=== PATIENT | female | born 1955 | race Caucasian/White ===

== ENCOUNTER 2021-10-09 11:51 | Emergency (ER) | payer MEDICARE, BC, SELFPAY ==
--- NOTE | 2021-10-09 12:15 | ED.GENADULT ---
HPI - General Adult General Time Seen by Provider: 12:15 Date Seen: 10/09/21 Chief complaint: Ear/Nose/Throat Problem Stated complaint: Nose bleed on blood thinners Time Seen by Provider: 10/09/21 12:06 Source: patient History of Present Illness HPI narrative: Love is a 66-year-old female past medical history includes dysthymic disorder, vitamin B12 deficiency, history of DVT, Heterozygous factor V Leiden mutation, GERD, hyperlipidemia irritable bowel syndrome who presents emergency department with a Ear/Nose/Throat problem. Patient states she has been having a head cold over the last 10 days, she has been blowing her nose a lot, denies any fevers, headache, nausea vomiting. Nosebleed started around 11:40 a.m. this morning she put the Afrin in the right naris and and put pressure, she came to the emergency department. Bleeding stopped when she was in the waiting room, this was around 1205 p.m.. She denies any lightheadedness, no dizziness, she has not had any shortness of breath or chest pain. She saw Dr. Usha Gonzalez ENT in the past, he did treat your around 7 years ago for recurrent nosebleeds. Patient has no other concerns at this time. Related Data Home Medications Medication Instructions Recorded Confirmed acetaminophen 500 mg tablet 1,000 mg PO Q6H PRN 10/04/21 10/05/21 apixaban 2.5 mg tablet 2.5 mg PO BID 10/04/21 10/05/21 atorvastatin 40 mg tablet 40 mg PO QDAY 10/04/21 10/05/21 bupropion HCl 100 mg tablet 300 mg PO .QD tab 10/04/21 10/05/21 cholecalciferol (vitamin D3) 50 50 mcg PO QDAY 10/04/21 10/05/21 mcg (2,000 unit) capsule cyanocobalamin (vitamin B-12) 500 500 mcg PO QDAY tab 10/04/21 10/05/21 mcg tablet fexofenadine 60 mg tablet 60 mg PO .HS tab 10/04/21 10/05/21 hydrocortisone 2.5 % topical cream 1 applic TOPICAL BID PRN 10/04/21 10/05/21 nystatin 100,000 unit/gram topical 1 applic TOPICAL QDAY 10/04/21 10/05/21 cream nystatin 100,000 unit/gram topical 1 applic TOPICAL TID 10/04/21 10/05/21 powder phentermine 3.75 mg-topiramate ER 1 cap PO Q24H 10/04/21 10/05/21 23 mg capsule,ext.release 24hr mphas (Qsymia) polyethylene glycol 3350 17 17 g PO ONCE g 10/04/21 10/05/21 gram/dose oral powder (Miralax) sennosides 8.6 mg tablet (senna) 8.6 mg PO QDAY 10/04/21 10/05/21 Previous Rx's Medication Instructions Recorded diazepam 5 mg tablet 2.5 - 5 mg PO DAILY PRN #30 tab 09/08/21 amoxicillin 500 mg-potassium 1 tab PO Q12H 7 Days #14 tab 10/09/21 clavulanate 125 mg tablet (Augmentin) Allergies Allergy/AdvReac Type Severity Reaction Status Date / Time ragweed pollen Allergy Intermediate Headache Verified 10/05/21 11:58 adhesive Allergy Mild Blistering Verified 10/05/21 11:58 adhesive tape Allergy Mild Verified 10/04/21 09:23 seasonal allergies to pollen Allergy Intermediate Uncoded 10/04/21 09:23 Tree Extract Allergy Intermediate Headache Uncoded 10/05/21 11:58 Review of Systems Status of ROS: Reports: 10 or more systems reviewed and unremarkable except as noted in History and below [facility] Medical History History of epistaxis History of hyperparathyroidism Surgical History Basal cell carcinoma of face History of cataract extraction (2016) History of cholecystectomy History of hysterectomy History of incisional hernia repair History of Am[place] fundoplication (2019) History of squamous cell carcinoma History of total hip replacement (2015) History of ventral hernia repair (2020) Status post trigger finger release (08/29/19) Family History Family/Other Colon cancer Exam Narrative: Exam Narrative: General: No obvious distress sitting comfortably HEENT: Tympanic membranes within normal limits bilateral oropharynx is clear and moist, Nose: Right nare, turbinates are noninflamed, small-vessel evident anterior septum no active bleeding, Left nare: Clear Lungs: Clear to auscultation bilaterally Heart: Normal sinus rhythm Neuro: Alert awake and oriented x3 Muscle skeletal: +5 strength upper lower extremities Const: Vital Signs, click to edit/add: Vital Signs - 24 hr 10/09/21 12:16 Temperature 98.3 F Pulse Rate [Pulse Oximeter] 86 Respiratory Rate 18 Blood Pressure [Le ft Upper Arm] 146/86 H Pulse Oximetry 98 Course Course Hospital Course: AIDET performed, was able to speak to ENT Dr. Gaming he recommended to pack with Merocel, cover with antibiotics Keflex and have her follow up at ENT clinic early next week. This discussed with patient she was in agreement. Reevaluation(s) Reevaluation #1: Merocel was placed with no difficulty, plan to discharge, prescription for Augmentin to be taken twice daily prophylaxis, patient did not want to be put on Keflex, she will call and make an appointment for at the [facility] [place] next week for packing removal, reasons return were given, all questions answered. Time: 13:34 Vital Signs Vital signs: Initial Vital Signs Temperature 98.3 F 10/09/21 12:16 Temperature Source Temporal Artery Scan 10/09/21 12:16 Pulse Rate 86 10/09/21 12:16 Respiratory Rate 18 10/09/21 12:16 Blood Pressure 146/86 H 10/09/21 12:16 Blood Pressure Mean 106 10/09/21 12:16 Blood Pressure Position Supine 10/09/21 12:16 Pulse Oximetry 98 10/09/21 12:16 Oxygen Delivery Method 10/09/21 12:16 Vital Signs Temperature 98.3 F 10/09/21 12:16 Pulse Rate 86 10/09/21 12:16 Respiratory Rate 18 10/09/21 12:16 Blood Pressure 146/86 H 10/09/21 12:16 Pulse Oximetry 98 10/09/21 12:16 Temperature 98.3 F 10/09/21 12:16 Pulse Rate 86 10/09/21 12:16 Respiratory Rate 18 10/09/21 12:16 Blood Pressure 146/86 H 10/09/21 12:16 Pulse Oximetry 98 10/09/21 12:16 Discharge Plan Discharge Clinical Impression: Epistaxis Patient Disposition: Home, Self-Care Condition: Improved Instructions: Nosebleed (ED) Additional Instructions: To follow-up with [place] next week for packing removal, do take Augmentin twice daily over the next 5 days, return if any worsening symptoms. Activity Level: No Restrictions Prescriptions: New amoxicillin-pot clavulanate [Augmentin] 500-125 mg tablet 1 tab PO Q12H 7 Days Qty: 14 0RF No Action atorvastatin 40 mg tablet 40 mg PO QDAY 0RF cholecalciferol (vitamin D3) 50 mcg (2,000 unit) capsule 50 mcg PO QDAY 0RF hydrocortisone 2.5 % cream 1 applic topical BID PRN0RF nystatin 100,000 unit/gram powder 1 applic topical TID 0RF nystatin 100,000 unit/gram cream 1 applic topical QDAY 0RF bupropion HCl 100 mg tablet 300 mg PO .QD 0RF apixaban 2.5 mg tablet 2.5 mg PO BID 0RF acetaminophen 500 mg tablet 1,000 mg PO Q6H PRN0RF fexofenadine 60 mg tablet 60 mg PO .HS 0RF cyanocobalamin (vitamin B-12) 500 mcg tablet 500 mcg PO QDAY 0RF polyethylene glycol 3350 [Miralax] 17 gram/dose powder 17 g PO ONCE 0RF Qsymia 3.75-23 mg capsule, ER multiphase 24 hr 1 cap PO Q24H 0RF Label Comments: Unknown dose sennosides [senna] 8.6 mg tablet 8.6 mg PO QDAY 0RF diazepam 5 mg tablet 2.5 - 5 mg PO DAILY PRN (Reason: anxiety) Qty: 30 1RF Follow Up/Referrals: Ligia Cash MD [Primary Care Provider] - Stand Alone Forms: [facility] Info Instructions
[2021-10-09 12:16] VITALS: BP 146/86; PULSE 86; RESP 18; TEMP 36.8; O2SAT 98; BMI 30.4
== END 2021-10-09 14:01 | disposition home or self-care (01) ==
LOC: ED 13:28
PROVIDERS: Emergency Provider Student in an Organized Health Care Education/Training Program; PCP Internal Medicine
DX: R04.0 Epistaxis (principal)
CPT/HCPCS: 99282; 99284

== ENCOUNTER 2022-01-15 14:51 | Outpatient (CLI) | payer MEDICARE, BC, SELFPAY ==
--- NOTE | 2022-01-15 15:00 | CRLHL7_ITS ---
For Patients: As a result of the Cures Act, medical imaging exams and procedure reports are released immediately into your electronic medical record. You may view this report before your referring provider. If you have questions, please contact your health care provider. BILATERAL DIGITAL SCREENING MAMMOGRAPHY WITH COMPUTER-AIDED DETECTION AND TOMOSYNTHESIS 01/15/2022 CLINICAL HISTORY: Screening. COMPARISON: 11/20/2020. TECHNIQUE: Mammography was performed using digital technique and interpreted with computer-aided detection. BREAST DENSITY: Scattered fibroglandular FINDINGS: 1 cm asymmetry LEFT breast, 2 o???clock position, 6 cm from the nipple. Negative findings RIGHT breast. IMPRESSION: Possible LEFT breast asymmetry. RECOMMENDATION: Recommend MLO and CC spot compression views and 90-degree lateral view. Additionally, ultrasound may be needed during the diagnostic evaluation. [facility] will contact the patient. BI-RADS Category 0: Incomplete - Need Additional Imaging evaluation and/or Prior Mammograms for Comparison Nicole Myers M.D. Diagnostic/Breast Radiologist [email or web address] Transcribed: 8:43 a.m. DW/Dictated by: Nicole Myers MD @ 01/18/2022 8:39:00 AM (Electronically Signed)
== END 2022-01-15 14:52 | disposition home or self-care (01) ==
LOC: MAMMO 14:55
PROVIDERS: PCP Internal Medicine; Visit Provider Internal Medicine
DX: Z12.31 Encounter for screening mammogram for malignant neoplasm of breast (principal); N63.20 Unspecified lump in the left breast, unspecified quadrant
CPT/HCPCS: 77063; 77067

== ENCOUNTER 2022-01-21 10:27 | Outpatient (CLI) | payer MEDICARE, BC, SELFPAY ==
--- NOTE | 2022-01-21 10:45 | CRLHL7_ITS ---
For Patients: As a result of the Cures Act, medical imaging exams and procedure reports are released immediately into your electronic medical record. You may view this report before your referring provider. If you have questions, please contact your health care provider. LEFT DIAGNOSTIC DIGITAL MAMMOGRAM WITH COMPUTER-AIDED DETECTION AND TOMOSYNTHESIS, 01/21/2022 INDICATION: Follow-up of a LEFT breast asymmetry described on a recent mammogram of 01/15/2022. TECHNIQUE: Views of the LEFT breast in the CC and MLO projections. Digital breast tomosynthesis utilized. Computer-aided detection utilized. COMPARISON FILM: January 15, 2022. BREAST COMPOSITION: There are scattered areas of fibroglandular density. FINDINGS: The previously suggested asymmetry in the upper outer LEFT breast is no longer evident and may have reflected superimposed breast tissue. These findings were discussed with the patient. Ultrasound is not recommended at this time. IMPRESSION: Negative LEFT breast diagnostic mammogram. RECOMMENDATION: Annual mammography is recommended. BI-RADS Category 1: Negative A lay language report of this examination will be provided to the patient. Dictated by: Catrachito Pickens MD @01/21/2022 11:25:40 AM [email or web address] RD/Dictated by: Catrachito Pickens MD @ 01/21/2022 11:25:00 AM (Electronically Signed)
== END 2022-01-21 10:28 | disposition home or self-care (01) ==
LOC: MAMMO 10:28
PROVIDERS: PCP Internal Medicine; Visit Provider Obstetrics & Gynecology
DX: N63.20 Unspecified lump in the left breast, unspecified quadrant (principal); R92.8 Other abnormal and inconclusive findings on diagnostic imaging of breast
CPT/HCPCS: 77065; G0279

== ENCOUNTER 2022-05-03 10:18 | Outpatient (CLI) | payer MEDICARE, BC, SELFPAY ==
[2022-05-03 13:59] LABS: Albumin* 4.2 g/dL (3.3-5.0); Chloride* 111 mmol/L (96-114)
[2022-05-03 14:00] LABS: Sodium* 140 mmol/L (135-149)
[2022-05-03 14:01] LABS: Potassium* 4.5 mmol/L (3.6-5.1)
[2022-05-03 14:02] LABS: Cholesterol* 150 mg/dL (90-199)
[2022-05-03 14:03] LABS: Alanine Aminotransferase* 39 U/L (4-35); Alkaline Phosphatase* 90 U/L (40-150); Aspartate Amino Transferase* 31 U/L (12-35); Bilirubin Direct* 0.3 mg/dL (0.0-0.5); Bilirubin Total* 0.6 mg/dL (0.1-1.5); Blood Urea Nitrogen* 16 mg/dL (7-30); Calcium* 9.2 mg/dL (8.4-10.6); Carbon Dioxide* 25 mmol/L (20-32); Estimated Glomerular Filt Rate 61 ml/min; Glucose* 90 mg/dL (60-115); Total Protein* 6.7 g/dL (6.0-8.3); Triglycerides* 104 mg/dL (40-149)
[2022-05-03 14:04] LABS: HDL Cholesterol* 59 mg/dL (>=50); LDL Cholesterol Calculated 70 mg/dL (<100); Vitamin D 25 Hydroxy* 48 ng/mL (30-80)
[2022-05-10 14:38] LABS: Vitamin B12* 920 pg/mL (243-894)
== END 2022-05-03 10:19 | disposition home or self-care (01) ==
LOC: LKVREF 10:18
PROVIDERS: PCP Internal Medicine; Visit Provider Internal Medicine
DX: R79.89 Other specified abnormal findings of blood chemistry (principal); M85.80 Other specified disorders of bone density and structure, unspecified site; E78.5 Hyperlipidemia, unspecified
CPT/HCPCS: 80048; 80061; 80076; 82306; 82607

== ENCOUNTER 2022-10-09 11:37 | Outpatient (CLI) | payer MEDICARE, BC, SELFPAY | END 2022-10-09 11:38 | disposition home or self-care (01) | LOC: LKVREF 11:38 | PROVIDERS: PCP Internal Medicine; Visit Provider Nurse Practitioner Family | DX: L03.90 Cellulitis, unspecified (principal) | CPT/HCPCS: 87070 ==

== ENCOUNTER 2022-12-20 06:24 | Outpatient (CLI) | payer MEDICARE, BC, SELFPAY ==
--- NOTE | 2022-12-20 08:45 | W.ANESCHARGE ---
Anesthesia Charges Start Date/Time Anesthesia Start Date: 12/20/22 Anesthesia Start Time: 07:30 Stop Date/Time Anesthesia Stop Date: 12/20/22 Anesthesia Stop Time: 08:04
--- NOTE | 2022-12-20 10:38 | W.ANESCHARGE ---
Anesthesia Charges Start Date/Time Anesthesia Start Date: 12/20/22 Anesthesia Start Time: 07:30 Stop Date/Time Anesthesia Stop Date: 12/20/22 Anesthesia Stop Time: 08:04
== END 2022-12-20 06:25 | disposition home or self-care (01) ==
LOC: OP CLINIC 06:24
PROVIDERS: PCP Internal Medicine; Visit Provider Surgery
DX: Z12.11 Encounter for screening for malignant neoplasm of colon (principal); K57.30 Diverticulosis of large intestine without perforation or abscess without bleeding; Z86.010 Personal history of colon polyps
CPT/HCPCS: 45378; 811; 812; J2704

== ENCOUNTER 2023-02-16 09:55 | Outpatient (CLI) | payer MEDICARE, BC, SELFPAY ==
--- NOTE | 2023-02-16 10:15 | CRLHL7_ITS ---
For Patients: As a result of the Cures Act, medical imaging exams and procedure reports are released immediately into your electronic medical record. You may view this report before your referring provider. If you have questions, please contact your health care provider. BILATERAL SCREENING MAMMOGRAM WITH COMPUTER-AIDED DETECTION AND TOMOSYNTHESIS TECHNIQUE: CC and MLO views were obtained. These mammographic images have been obtained using full-field digital technique. These mammographic images were interpreted with the benefit of computer-aided detection. Breast Tomosynthesis was used in this interpretation. COMPARISON FILM: 01/21/22, 01/15/22, 11/20/20. FINDINGS: There are scattered areas of fibroglandular density IMPRESSION: There is no radiographic evidence for malignancy. ASSESSMENT: BI-RADS Category 2: Benign RECOMMENDATION: Routine screening mammogram in 1 year. A lay language report of this examination will be provided to the patient. Tavon Coats M.D. Diagnostic Radiologist [email or web address] Transcribed: 6:48 p.mJosé Antonio gutierrez/Dictated by: Tavon Coats MD @ 02/16/2023 11:16:00 AM (Electronically Signed)
== END 2023-02-16 09:56 | disposition home or self-care (01) ==
PROVIDERS: PCP Internal Medicine; Visit Provider Internal Medicine
DX: Z12.31 Encounter for screening mammogram for malignant neoplasm of breast (principal)
CPT/HCPCS: 77063; 77067

== ENCOUNTER 2023-06-06 09:05 | Outpatient (CLI) | payer MEDICARE, BC, SELFPAY ==
--- OUTSIDE RECORDS SUMMARY | 2023-06-17 12:07 | XMS_ITS | Clinical Summary ---
Author Name Unknown Organization [facility] Address [address] [place] [address] Care Team Providers Care Indirect Sales Representative Name Role Phone Elsewhere, Pcp Primary Care Provider Unavailabl e Source Comments Patient records contain information from all sites at [facility]. For routine questions regarding patient records, call [phone] during business hours, M-F 8:00 AM - 5:00 PM Central Time. Record requests for emergency care only can be directed to [phone] at any time.[facility] Allergies Active Allergy Reactions Criticality Noted Date Comments Adhesive Itching,Rash Low 02/18/2016 Pollen Extracts Headache Medium 11/30/2018 Sneezing Ragweed Pollen Headache High 10/04/2022 Medications Medication Sig Dispensed Refills Start Date End Date Status atorvastatin (LIPITOR) 40 mg tablet Take 40 mg by mouth at bedtime. 3 10/03/2017 Active buPROPion XL (WELLBUTRIN XL) 300 mg 24 hr tablet Take 300 mg by mouth daily. 3 10/30/2018 Active YUVAFEM 10 mcg vaginal tablet Insert 10 mcg into the vagina 2 (two) times a week. 3 10/23/2018 Active chlorpheniramine/ dextromethorp (CORICIDIN HBP COUGH AND COLD ORAL) Take 1 tablet by mouth daily as needed (allergies). If fexofenadine does not relieve allergy symptoms. 0 Active cyanocobalamin, vitamin B-12, 1,500 mcg tablet,disintegra ting Dissolve 1,500 mcg in the mouth daily. 0 Active polyethylene glycol (MIRALAX) 17 gram powder packet Take 1 packet (17 g total) by mouth daily. Dissolve each 17 g dose in 240 mLs (8 ounces) of beverage.; Take while using pain medications and until noted with return of normal bowel function; hold for loose stools/diarrhea 0 07/08/2020 Active Additional Information Patient taking differently:17 g oral Daily,Dissolve each 17 g dose in 240 mLs (8 ounces) of beverage.; Take while using pain medications and until noted with return of normal bowel function; hold for loose stools/diarrheaUsing Senna at night, Miralax in morning if needed. 10/02/2021, Informant: Self, Reported on 10/02/2021 sennosides-docusa te sodium (Senna-S) 8.6-50 mg per tablet Take 2 tablets by mouth 2 (two) times a day. ; take while using pain medications and until noted with return of normal bowel function; hold for loose stools/diarrhea 0 07/08/2020 Active Additional Information Patient taking differently: 1 tabletoralDaily, 1 tablet at night, miralax in morning if needed., Reported on 10/02/2021 acetaminophen (TYLENOL) 500 mg capsule Take 2 capsules (1,000 mg total) by mouth every 6 (six) hours as needed for pain. 0 12/11/2020 Active Eliquis 2.5 mg tablet Take 2.5 mg by mouth 2 (two) times a day. 0 03/17/2021 Active cholecalciferol (VITAMIN D3) 50 mcg (2,000 Unit) capsule Take 50 mcg by mouth daily. 0 04/07/2021 Active loratadine (CLARITIN) 10 mg tablet Take 10 mg by mouth daily. 0 Active FLUoxetine (PROzac) 20 mg capsule Take 20 mg by mouth daily. 0 10/12/2022 Active hydrocortisone (HYTONE) 2.5 % cream Apply 1 Application topically as needed for irritation. 0 10/09/2022 Active multivit with calcium,iron,min (MULTIPLE VITAMIN, WOMENS ORAL) 0 Active halobetasol (ULTRAVATE) 0.05 % ointment Apply topically 2 (two) times a day. Apply to foot under a white cotton sock 30 g 1 01/25/2023 Active phentermine-topir amate (QSYMIA) 15-92 mg capsule, ER multiphase 24 hr ext release capsule Take 1 capsule by mouth every morning before breakfast. 90 capsule 1 03/03/2023 08/30/2023 Active metFORMIN XR (GLUCOPHAGE-XR) 500 mg 24 hr tabletIndications :PreDiabetes Take 2 tablets (1,000 mg total) by mouth 2 (two) times a day with meals. 360 tablet 3 03/24/2023 03/23/2024 Active amitriptyline 2%,ketamine 0.5% - vanicream Apply topically 3 (three) times a day as needed (itching). Apply to affected areas of the toes. 30 g 1 04/14/2023 Active amitriptyline 2%,ketamine 0.5% - vanicream Apply topically 3 (three) times a day as needed for itching. Apply to affected areas of the toes. 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 Seroma Subsequent 07/15/2020 Anticoagulant Therapy 11/28/2019 Gastroesophageal Reflux Disease 10/22/2019 Obesity Body Mass Index 30-39.9 Adult 10/22/2019 Hernia Hiatal 10/12/2019 Overview: Added automatically from request for surgery [id number] Mutation Factor V Leiden Heterozygous 09/18/2013 Solitary Kidney Congenital 09/18/2013 Anxiety Generalized Disorder 03/14/2011 Irritable Bowel Syndrome Without Diarrhea 1994 Insulin Resistance, Unspecified 03/14/1994 Hyperlipidemia 03/14/1994 Thrombosis Deep Vein Personal History 03/14/1994 Factor V Leiden Family History 03/14/1994 Thrombosis Deep Vein Family History 03/14/1994 Resolved Problems Problem Noted Date Diagnosed Date Resolved Date Seroma Infected Postoperative Initial 07/27/2020 11/05/2020 Hernia Ventral 06/02/2020 11/05/2020 Overview: Added automatically from request for surgery [id number] Herniorrhaphy Ventral Status Post 03/14/1994 11/05/2020 Encounters Date Type Department Care Team Description 06/09/2023 Clinical Communication Department of Dermatology in [address] [phone] Elsewhere, Pcp 05/25/2023 10:20 AM CDT Office Visit Department of Dermatology in [place], [place] [address] [place] [address] Abimbola Bowles M.D. Pruritus (Primary Dx); Dermatitis 05/25/2023 Ancillary Procedure Department of Dermatology 04/28/2023 Clinical Communication Division of Thoracic Surgery in [place], [place] [address] [place] [address] Rossana Ross M.D. 04/14/2023 12:10 PM [facility] Ancillary Procedure Department of Dermatology 04/14/2023 11:20 AM [facility] Office Visit Department of Dermatology in [place], [place] [address] [place] [address] Abimbola Bowles M.D. Acrocyanosis (HCC) (Primary Dx); Pruritus; Mutation Factor V Leiden Heterozygous (HCC) Discharge Disposition: Home or Self Care 04/06/2023 Clinical Communication Department of Dermatology in [place], [place] [address] [place] [address] Regina Amaya, RChelsie 03/24/2023 Refill Division of Endocrinology in [place], [place] [address] [place] [address] Tana Vazquez M.D. Med Refill from Last 3 Months Immunizations Name Administration Dates Next Due HZV (ZOSTAVAX) 01/11/2014 Influenza TIV (IM) 12/12/2014 Tdap 01/11/2014 influenza vaccine quad (FLUZ ONE/FLUARIX) (6 months and older)(PF) 01/01/2016,12/12/2014 Family History Medical History Relation Name Comments Basal cell carcinoma Brother 1 Zac Colon polyps Brother 1 Zac Hypertension Brother 1 Zac Obesity Brother 1 Zac Skin cancer Brother 1 Zac Clotting disorder Father Reji Dementia Father Reji Hypertension Father Reji Kidney disease Father Reji Stroke Father Reji Transient ischemic attack Father Reji Tuberculosis Father Reji Clotting disorder Mother Sheeba Melanoma Paternal Grandfather Grandpa Reji Cause of in mid 80? s Colon cancer Paternal Grandmother Paternal grandmother Surgery in mid 50? s. Lived a long time after Dementia Paternal Grandmother Paternal grandmother Stroke Paternal Grandmother Paternal grandmother Basal cell carcinoma Sister 1 Rachele Clotting disorder Sister 1 Rachele Colon polyps Sister 1 Rachele Ovarian cancer Sister 1 Rachele Psoriasis Sister 1 Rachele Skin cancer Sister 1 Rachele Arthritis Sister 2 Christy Clotting disorder Sister 2 Christy Colon polyps Sister 2 Christy Hyperlipidemia Sister 2 Christy Kidney disease Sister 2 Christy Obesity Sister 2 Christy Osteoporosis Sister 2 Christy Relation Name Status Comments Brother 1 Zac Brother 2 Wade Father Reji Mother Sheeba Paternal Grandfather Grandpa Reji Paternal Grandmother Paternal grandmother Sister 1 Rachele Sister 2 Christy Social History Tobacco Use Types Packs/Day Years Used Date Smoking Tobacco: Never Smokeless Tobacco: Never Tobacco Cessation:Counseling Given: Not Answered Alcohol Use Standard Drinks/Week Comments Yes 7 (1 standard drink = 0.6 oz pur e alcohol) Humiliation, Afraid, Rape, and Kick questionnair e Answer Date Recorded Within the last year, have y ou been afraid of your partner or ex-partner? No 12/24/2021 Within the last year, have y ou been humiliated or emotionally abused in other ways by your partner or ex-partner? No Within the last year, have y ou been kicked, hit, slapped, or otherwise physically hurt by your partner or ex-partner? No 12/24/2021 Within the last year, have y ou been raped or forced to have any kind of sexual activity by your partner or ex-partner? No 12/24/2021 Social Connection and Isolat ion Panel [NHANES] Answer Date Recorded In a typical week, how many times do you talk on the phone with family, friends, or neighbors? More than three times a week 12/24/2021 How often do you get togethe r with friends or relatives? More than three times a week 12/24/2021 How often do you attend [facility] or sikhism services? 1 to 4 times per year 12/24/2021 Do you belong to any clubs o r organizations such as restorationism groups, unions, fraternal or athletic groups, or school groups? Yes 12/24/2021 How often do you attend meet ings of the clubs or organizations you belong to? More than 4 times per year 12/24/2021 Are you , , di vorced, , never , or living with a partner? 12/24/2021 AUDIT-C Answer Date Recorded Q1: How often do you have a drink containing alcohol? 4 or more times a week 12/24/2021 Q2: How many drinks containi ng alcohol do you have on a typical day when you are drinking? 1 or 2 Q3: How often do you have si x or more drinks on one occasion? Never 12/24/2021 Overall Financial Resource Strain (CARDIA) Answe r Date Recorded How hard is it for you to pa y for the very basics like food, housing, medical care, and heating? Not hard at all 01/10/2023 [facility]at ional [facility] - Occupational Stress Questionnaire Answer Date Recorded Do you feel stress - tense, restless, nervous, or anxious, or unable to sleep at night because your mind is troubled all the time - these days? To some extent 12/24/2021 Exercise Vital Sign Answer Date Recorde d On average, how many days pe r week do you engage in moderate to strenuous exercise (like a brisk walk)? 4 days 01/10/2023 On average, how many minutes do you engage in exercise at this level? 120 min 01/10/2023 Hunger Vital Sign Answer Date Recorded Within the past 12 months, y ou worried that your food would run out before you got the money to buy more. Never true 01/11/20 23 Within the past 12 months, t he food you bought just didn't last and you didn't have money to get more. Never true 01/10/2023 PRAPARE - Transportation Answer Date Re corded In the past 12 months, has l ack of transportation kept you from medical appointments or from getting medications? No 12/14 In the past 12 months, has l ack of transportation kept you from meetings, work, or from getting things needed for daily living? No 01/10/2023 Nutrition Answer Date Recorded Nutrition: EVOO Fat Source Yes 01/10 On average, how many serving s of fruits and vegetables do you eat per day (serving size is equal to 1 cup or approximately the size of a tennis ball)? 3-5 01/10/2023 Dental Answer Date Recorded Dental: Regular Dentist Yes 05/01/19 Employment Answer Date Recorded Employment status Retired 01/10/2023 Housing Stability Answer Date Recorded What is your living situation today? [facility] 01/10/2023 Education Answer Date Recorded What is the highest level of school you have completed or the highest degree you have received? Professional school degree (e.g., MD, DDS, DVM, RUFINO) 11/21/2018 Sex and Gender Information Value Date Recorded Sex Assigned at Female 11/21/2018 6:51 PM CDT Gender Identity Female 11/21/2018 6:51 PM CDT Sexual Orientation Straight 08/13/2019 1: 22 PM CDT Last Filed Vital Signs Vital Sign Reading Time Taken Comments Blood Pressure 122/79 01/10/2023 2:19 PM CDT Pulse 88 01/10/2023 2:19 PM CDT Temperature 36.6 ??C (97.9 ??F) 12/11/2020 1:05 PM CD T Respiratory Rate 16 12/11/2020 1:05 PM CDT Oxygen Saturation 95% 12/11/2020 1:05 PM CDT Inhaled Oxygen Concentration - - Weight 79.3 kg (174 lb 13.2 oz) 01/10/2023 2:13 PM CDT Height 159 cm (5' 2.6) 01/10/2023 2:13 PM CDT Body Mass Index 31.37 01/10/2023 2:13 PM CDT Plan of Treatment Upcoming Encounters Date Type Department Care Team (Late st Contact Info) Description 10/25/2023 2:00 PM CDT Office Visit Department of Dermatology in [address] [address] Daryl Dorsey M.D. [address] [place] [address] Discharge Disposition: Home or Self Care Health Maintenance Due Date Last Done Comments CT Colonography 1955 Cologuard 1955 Hepatitis C Screening 1955 Lipid (Cholesterol) Screening 1955 Mammogram 1955 Colonoscopy 02/17/2021 02/18/2016 Colorectal Cancer Surveillance 02/17/2021 Fasting Glucose for Diabetes Screening 09/17/2021 09/17/2020, 08/09/2020, 08/09/2020, Additional history exists COVID-19 Vaccine (2022-2 4 season) 2023 11/30/2022, 11/27/2021, 11/27/2021, Additional history exists Depression Screening (Annual PHQ-2) 03/14/2023 Fall Risk Screen (Annual) 03/14/2023 DTaP,Tdap,and Td Vaccines (2 - Td or Tdap) 01/12/2024 01/11/2014 Zoster Vaccines Completed 05/18/2018, 10/14, 01/11/2014 Pneumococcal vaccine (65+ years) Completed 07/19/19, 08/29/2018 Bone Density Scan (Osteoporo sis Screen) Discontinued 09/17/2020 Influenza Vaccine Completed 01/06/2023, , 12/26/2021, Additional history exists Medical Devices Implanted Type Area Bench Worker Apprentice Device Identifier Shelf Expiration Date Model / Serial / Lot Clp Hrzn Ti 6 Clp Md Bello - [id number] Implanted:Qt y: 1 on 08/08/2020 by Blaire Marin M.D. at [facility] Hardware e.g. pins/screws /rods Abdomen Teleflex [employer] [id number] 10/07/2024 [id number] / / [id number] Clp Hrzn Ti 6 Clp Md Bello - [id number] Implanted:Qt y: 1 on 08/08/2020 by Blaire Marin M.D. at [facility] Hardware e.g. pins/screws /rods Abdomen Clinical Inkflex [employer] [id number] 10/07/2024 [id number] / / [id number] Clp Hrzn Ti 6 Clp Md Bello - [id number] Implanted:Qt y: 1 on 08/08/2020 by Blaire Marin M.D. at [facility] Hardware e.g. pins/screws /rods Abdomen [employer] [id number] 10/07/2024 / [id number] 2 Clp Hrzn Ti 6 Clp Sm Red - [id number] Implanted:Qt y: 1 on 08/08/2020 by Blaire Marin M.D. at [facility] Hardware e.g. pins/screws /rods Abdomen [employer] [id number] 11/11/2024 / [id number] Clp Hrzn Ti 6 Clp Sm Red - [id number] Implanted:Qt y: 1 on 08/08/2020 by Blaire Marin M.D. at [facility] Hardware e.g. pins/screws /rods Abdomen [employer] [id number] 11/11/2024 / [id number] 4 Clp Hrzn Ti 6 Clp Sm Red - [id number] Implanted:Qt y: 1 on 08/08/2020 by Blaire Marin M.D. at [facility] Hardware e.g. pins/screws /rods Abdomen [employer] [id number] 11/11/2024 / [id number] Clp Hrzn Ti 6 Clp Sm Red - [id number] Implanted:Qt y: 1 on 08/08/2020 by Blaire Marin M.D. at [facility] Hardware e.g. pins/screws /rods Abdomen [employer] [id number] 11/11/2024 / [id number] Clp Hrzn Ti 6 Clp Md Bello - [id number] Implanted:Qt y: 1 on 08/08/2020 by Blaire Marin M.D. at [facility] Hardware e.g. pins/screws /rods Abdomen [employer] [id number] 10/07/2024 / [id number] Hip Implant Hip Implant Left: Hip Mesh Or Patch Mesh or Patch Abdomen Hernandez [employer]hn Sep[employer] 5x6 - [id number] Implanted:Qt y: 1 on 07/07/2020 by Blaire Marin M.D. at [facility] Mesh or Patch N/A: Abdomen Olivarez 09/29/2022 [id number] / / [id number] [facility] Santosh Polyprp 6x6 - [id number] Implanted:Qt y: 1 on 07/07/2020 by Blaire Marin M.D. at [facility] Mesh or Patch N/A: Abdomen C.R.Bard 09/08/2024 [id number] / / [id number] Procedures Procedure Name Priority Date/Time Associated Diagnosis Comments DERMATOPATHOLOGY Routine 05/25/2023 10:5 2 AM CDT DERMATOLOGY IMAGE EXAM Routine 4 12:00 AM CDT DERMATOLOGY IMAGE EXAM Routine 4 12:10 PM [facility] from Last 3 Months Results * Dermatopathology (05/25/2023 10:52 AM CDT) 05/31/2023 10:41 AM CDT PDRM Report electronically signed by Cyndy Davies M.D. 05/31/2023 10:41 AM CDT PDRM Gross Description Received in formalin labeled with the patient's name, medical record number, and right dorsum of foot is a 0.4 cm in diameter pale-nunez,previously inked blue skin punch biopsy excised to a depth of 0.2 cm. No discrete lesion is grossly identified on the skin surface.Specimen is bisected and submitted entirely in cassette A1. ??Grossed by JTW. 05/31/2023 10:41 AM CDT PDRM Interpretation FINAL DIAGNOSIS A. ??Right Dorsum of Foot, Skin punch biopsy: ??Chronic dermatitis with perivascular mixed lymphohistiocytic inflammation including eosinophils COMMENT Clinical note and photos were reviewed. PAS-D stain is negative for fungal microorganisms. The histologic findings are consisted with dermatitis.Clinical correlation is recommended. Digital imaging was used in the diagnostic assessment of this case. 05/31/2023 10:41 AM CDT PDRM Skin (Right Dorsum of Foot) 05/25/2023 10:50 AM CDT Abimbola Bowles M.D. LAB PATH DERM [facility] [address] [place] [address], [facility] PDRM [address] [place] [address] * Feet 529 Biopsy-Dermatology Image Exam (05/25/2023 12:00 AM CDT) Only the most recent of2 resultswithin the time period is included. Narrative [facility]IMS - 05/25/2023 4:25 PM CDT This order has been created and auto-finalized to support the import of images acquired without order. The clinical documentation to support these images can be found on the encounter that produced images. Provider Not In System IMG NON RAD IMAGI NG PROCEDURES Performing Organization Address City/[facility]/ZIP Co de Phone Number [facility]S NA from Last 3 Months Advance Directives For more information, please contact: [phone] Documents on File Type Date Recorded Patient Billing Department Supervisor Expl anation Advance Directives 11/28/2019 5:54 AM [facility] Directive * Full Code (Latest Code Status on File) Date Activated Date Inactivated Comments 12/11/2020 8:05 AM 12/11/2020 4:45 PM Question Answer Comments Full Code: Not Discussed Due to: Patient not available * Full Code Date Activated Date Inactivated Comments 07/27/2020 11:16 AM 08/02/2020 2:15 PM Question Answer Comments Full Code: Discussed * Full Code Date Activated Date Inactivated Comments 11/28/2019 2:59 PM 11/30/2019 4:16 PM Question Answer Comments Full Code: Not Discussed Due to: Patient not available Healthcare Agents on File Name Relationship Healthcare Agent Relationship Communication Travis Mendoza Spouse Health Care Agent Rachele Iglesias Sister First Alternate Health Care Agent Care Teams Indirect Sales Representative Relationship Specialty Start Date End Date Elsewhere, Pcp PCP - General Family Medicine 10/10/17
--- OUTSIDE RECORDS SUMMARY | 2023-06-17 12:07 | XMS_ITS | Referral Summary ---
Author Name Unknown Organization [facility] Address [address] [place] [address] Care Team Providers Care Balloon Artist Name Role Phone Elsewhere, Pcp Primary Care Provider Unavailabl e Source Comments Patient records contain information from all sites at [facility]. For routine questions regarding patient records, call [phone] during business hours, M-F 8:00 AM - 5:00 PM Central Time. Record requests for emergency care only can be directed to [phone] at any time.[facility] Encounters Date Type Department Care Team Description 06/09/2023 Clinical Communication Department of Dermatology in [address] [phone] Elsewhere, Pcp 05/25/2023 Ancillary Procedure Department of Dermatology 05/25/2023 10:20 AM CDT Office Visit Department of Dermatology in [place], [place] [address] [place] [phone] Abimbola Bowles M.D. Pruritus (Primary Dx); Dermatitis 04/28/2023 Clinical Communication Division of Thoracic Surgery in [place], [place] [address] [place] [phone] Rossana Ross M.D. 04/14/2023 12:10 PM HISTOTECHNOLOGIST SUPERVISOR Ancillary Procedure Department of Dermatology 04/14/2023 11:20 AM HISTOTECHNOLOGIST SUPERVISOR Office Visit Department of Dermatology in [place], [place] [address] [place] [phone] Abimbola Bowles M.D. Acrocyanosis (HCC) (Primary Dx); Pruritus; Mutation Factor V Leiden Heterozygous (HCC) Discharge Disposition: Home or Self Care 04/06/2023 Clinical Communication Department of Dermatology in [place], [place] [address] [place] [address] Regina Amaya R.N. 03/24/2023 Refill Division of Endocrinology in [place], [place] [address] [place] [phone] Tana Vazquez M.D. Med Refill from Last 3 Months Allergies Active Allergy Reactions Criticality Noted Date [...] Overview: Added automatically from request for surgery [id number] Mutation Factor V Leiden Heterozygous 09/18/2013 Solitary [...] Overview: Added automatically from request for surgery [id number] Herniorrhaphy Ventral Status Post 03/14/1994 11/05/2020 Immunizations Name Administration Dates Next Due HZV (ZOSTAVAX) 01/11/2014 Influenza TIV (IM) 12/12/2014 Tdap 01/11/2014 influenza vaccine quad (FLUZ ONE/FLUARIX) (6 months and older)(PF) 01/01/2016,12/12/2014 Social History Tobacco Use Types Packs/Day Years [...] week 12/24/2021 How often do you attend [facility] services? 1 to 4 times per year 12/24/2021 Do you belong to any clubs o r organizations such as evangelical groups, unions, fraternal or athletic groups, or [...] and heating? Not hard at all 01/10/2023 [facility] [place] of Occupat ional Health - Occupational Stress Questionnaire Answer Date Recorded [...] your living situation today? I have a [facility] place to live 01/10/2023 Education Answer [...] CDT Office Visit Department of Dermatology in [address] [phone] Daryl Dorsey M.D. [address] [place] [address] Discharge Disposition: Home or Self Care Medical Devices Implanted Type Area Tab Machine Operator Device Identifier Shelf Expiration Date Model / Serial / Lot Clp Hrzn Ti 6 Clp Bello - [id number] Implanted:Qt y: 1 on 08/08/2020 by Blaire Marin M.D. at [facility] [place] Hardware e.g. pins/screws /rods Abdomen Teleflex K[employer] [id number] 10/07/2024 [id number] / / [id number] Clp Hrzn Ti 6 Clp Bello - [id number] Implanted:Qt y: 1 on 08/08/2020 by Blaire Marin M.D. at [facility] [place] Hardware e.g. pins/screws /rods Abdomen [employer] [id number] 10/07/2024 [id number] / / [id number] Clp Hrzn Ti 6 Clp Bello - [id number] Implanted:Qt y: 1 on 08/08/2020 by Blaire Marin M.D. at [facility] [place] Hardware e.g. pins/screws /rods Abdomen [employer] [id number] 10/07/2024 [id number] / / [id number] Clp Hrzn Ti 6 Clp Sm Red - [id number] Implanted:Qt y: 1 on 08/08/2020 by Blaire Marin M.D. at [facility] [place] Hardware e.g. pins/screws /rods Abdomen [employer] [id number] 11/11/2024 / / [id number] 4 Clp Hrzn Ti 6 Clp Sm Red - [id number] Implanted:Qt y: 1 on 08/08/2020 by Blaire Marin M.D. at [facility] [place] Hardware e.g. pins/screws /rods Abdomen [employer] [id number] 11/11/2024J200003 4 Clp Hrzn Ti 6 Clp Sm Red - [id number] Implanted:Qt y: 1 on 08/08/2020 by Blaire Marin M.D. at [facility] [place] Hardware e.g. pins/screws /rods Abdomen [employer] [id number] 11/11/2024J200003 4 Clp Hrzn Ti 6 Clp Sm Red - [id number] Implanted:Qt y: 1 on 08/08/2020 by Blaire Marin M.D. at [facility] [place] Hardware e.g. pins/screws /rods Abdomen [employer] [id number] 11/11/2024 / / [id number] 4 Clp Hrzn Ti 6 Clp Md Bello - [id number] Implanted:Qt y: 1 on 08/08/2020 by Blaire Marin M.D. at [facility] [place] Hardware e.g. pins/screws /rods Abdomen [employer] [id number] 10/07/2024 / / [id number] Hip Implant Hip Implant Left: Hip Mesh Or Patch Mesh or Patch Abdomen Hernandez Adhn Seprafilm 5x6 - [id number] Implanted:Qt y: 1 on 07/07/2020 by Blaire Marin M.D. at [facility] [place] Mesh or Patch N/A: Abdomen Olivarez 09/29/2022 [id number] / / [id number] [facility] Santosh Polyprp 6x6 - [id number] Implanted:Qt y: 1 on 07/07/2020 by Blaire Marin M.D. at [facility] [place] Mesh or Patch N/A: Abdomen C.R.Bard 09/08/2024 [id number] / / [id number] Procedures Procedure Name Priority Date/Time Associated Diagnosis Comments DERMATOPATHOLOGY Routine 05/25/2023 10:5 2 AM CDT DERMATOLOGY IMAGE EXAM Routine 4 12:00 AM CDT DERMATOLOGY IMAGE EXAM Routine 4 12:10 PM HISTOTECHNOLOGIST SUPERVISOR from Last 3 Months Results * Dermatopathology [...] CDT Abimbola Bowles M.D. LAB PATH DERM YARELISAmie MINE [facility] [address] [place] [address], [facility] [address] [place] [address] * Feet 529 Biopsy-Dermatology Image Exam (05/25/2023 [...] RAD IMAGI NG PROCEDURES Performing Organization Address City/[facility]/ZIP Co de Phone Number IIMS NA from Last 3 Months Advance Directives For more information, please contact: [phone] Documents on File Type Date Recorded Patient Sap Analyst Expl anation Advance Directives 11/28/2019 5:54 AM [...] Travis Mendoza Spouse Health Care Agent Rachele Clubb Sister First Alternate Health Care Agent Care Teams Balloon Artist Relationship Specialty Start Date End Date Elsewhere, Pcp PCP - General Family Medicine 10/10/17
--- OUTSIDE RECORDS SUMMARY | 2023-06-17 12:07 | XMS_ITS | Encounter Summary ---
Author Name Unknown Organization [facility] Address [address] [place] [address] Care Team Providers Care Kiln Labourer Name Role Phone Elsewhere, Pcp Primary Care Provider Unavailabl e Encounter Details Date Type Department Care Team (Late st Contact Info) Description 06/09/2023 Clinical Communication Department of Dermatology in [address] [phone] Elsewhere, Pcp Social History Tobacco Use Types Packs/Day Years Used Date Smoking Tobacco: Never Smokeless Tobacco: Never Alcohol Use Standard Drinks/Week Comments Yes 7 [...] week 12/24/2021 How often do you attend chur or adventism services? 1 to 4 times per year 12/24/2021 Do you belong to any clubs o r organizations such as anglican groups, unions, fraternal or athletic groups, or [...] and heating? Not hard at all 01/10/2023 [facility] [place] of Occupat ional Health - Occupational Stress [...] your living situation today? I have a [facility] place to live 01/10/2023 Education Answer [...] Orientation Straight 08/13/2019 1: 22 PM CDT documented as of this encounter Plan of Treatment Upcoming Encounters Date Type Department Care Team (Late st Contact Info) Description 10/25/2023 2:00 PM CDT Office Visit Department of Dermatology in [address] [phone] Daryl Dorsey M.D. [address] [place] [phone] Discharge Disposition: Home or Self Care documented as of this encounter Visit Diagnoses Not on filedocumented in this encounter Care Teams Kiln Labourer Relationship Specialty Start Date End Date Elsewhere, Pcp PCP - General Family Medicine 10/10/17 documented as of this encounter
--- OUTSIDE RECORDS SUMMARY | 2023-06-17 12:07 | XMS_ITS ---
Author Name Unknown Organization [facility] Address [address] [place] [address] Care Team Providers Care Dry Ice Machine Operator Name Role Phone Unavailable Unavailable Unavailable Surgery Details Not on file Complications Check Surgery Details section. Procedure Estimated Blood Loss Check Surgery Details section. Procedure Findings Check Surgery Details section. Procedure Specimens Taken Check Surgery Details section.
--- OUTSIDE RECORDS SUMMARY | 2023-06-17 12:08 | XMS_ITS | Encounter Summary ---
Author Name Unknown Organization [facility] Address [address] [place] [address] Care Team Providers Care Coal Handler Name Role Phone Elsewhere, Pcp Primary Care Provider Unavailabl e Encounter Details Date Type Department Care Team (Late st Contact Info) Description 05/25/2023 Ancillary Procedure Department of Dermatology Social History Tobacco Use Types Packs/Day Years [...] 12/24/2021 How often do you attend chur ch or religion services? 1 to 4 times per year 12/24/2021 Do you belong to any clubs o r organizations such as mandaeism groups, unions, fraternal or athletic groups, or [...] heating? Not hard at all 01/10/2023 [facility] of Occupat ional Health - Occupational Stress [...] Date Recorded Dental: Regular Dentist Yes 05/01/19 21 Employment Answer Date Recorded Employment status Retired 01/10/2023 Housing Stability Answer Date Recorded What is your living situation today? I have a [employer] place to live 01/10/2023 Education Answer Date [...] CDT Office Visit Department of Dermatology in [address] [phone] Daryl Dorsey M.D. [address] [place] [phone] Discharge Disposition: Home or Self Care documented as of this encounter Procedures Procedure Name Priority Date/Time Associated Diagnosis Comments DERMATOLOGY IMAGE EXAM Routine 05/25/2023 12:00 AM CDT documented in this encounter Results * Feet 529 Biopsy-Dermatology Image Exam (05/25/2023 12:00 AM CDT) Narrative IIMS - 05/25/2023 4:25 PM CDT This order has been created and auto-finalized to support the import of images acquired without order. The clinical documentation to support these images can be found on the encounter that produced images. Provider Not In System IMG NON RAD IMAGI NG PROCEDURES IIMS NA documented in this encounter Visit Diagnoses Not on filedocumented in this encounter Care Teams Coal Handler Relationship Specialty Start Date End Date Elsewhere, Pcp PCP - General Family Medicine 10/10/17 documented as of this encounter
--- OUTSIDE RECORDS SUMMARY | 2023-06-17 12:08 | XMS_ITS | Encounter Summary ---
Author Name Unknown Organization [facility] Address [address] [place] [phone] Care Team Providers Care Military Pay Technician Name Role Phone Elsewhere, Pcp Primary Care Provider Unavailabl e Reason for Visit * Reason Comments Med Refill Encounter Details Date Type Department Care Team (Late st Contact Info) Description 03/02/2023 Refill Division of Endocrinology in [place], [place] [address] [place] [phone] Tana Vazquez M.D. [address] [place] [phone] Med Refill Social History Tobacco Use Types Packs/Day Years [...] How often do you attend chur or alevism services? 1 to 4 times per year 12/24/2021 Do you belong to any clubs o r organizations such as rastafarian groups, unions, fraternal or athletic groups, or [...] and heating? Not hard at all 01/10/2023 [facility] of Occupat ionor Health - Occupational Stress Questionnaire Answer Date [...] your living situation today? I have a [facility] place to live 01/10/2023 Education Answer [...] CDT Office Visit Department of Dermatology in [address] [phone] Daryl Dorsey M.D. [address] [place] [phone] Discharge Disposition: Home or Self Care documented as of this encounter Visit Diagnoses Not on filedocumented in this encounter Care Teams Military Pay Technician Relationship Specialty Start Date End Date Elsewhere, Pcp PCP - General Family Medicine 10/10/17 documented as of this encounter
--- OUTSIDE RECORDS SUMMARY | 2023-06-17 12:08 | XMS_ITS | Encounter Summary ---
Author Name Unknown Organization [facility] Address [address] [place] [address] Care Team Providers Care Heel Painter Name Role Phone Elsewhere, Pcp Primary Care Provider Unavailabl e Reason for Visit * Outpatient (Routine) - Closed Specialty Diagnoses / Procedures Referred By Minna limon Referred To Contact Dermatology Joseph Sierra M.D. [address] [place] [phone] [facility] Referral ID Status Reason Start Date Expiration Date Visits Re quested Visits Authorized [id number] Closed 01/24/2023 01/23/2026 1 1 Encounter Details Date Type Department Care Team ([facility] Contact Info) Description 04/14/2023 11:20 AM SIGN PAINTER HELPER Office Visit Department of Dermatology in [place], [place] [address] [place] [phone] Abimbola Bowles M.D. [address] [place] [phone] Acrocyanosis (HCC) (Primary Dx); Pruritus; Mutation Factor V Leiden Heterozygous (HCC) Discharge Disposition: Home or Self Care Social History Tobacco Use Types Packs/Day Years [...] 12/24/2021 How often do you attend [facility] or religion services? 1 to 4 times per year 12/24/2021 Do you belong to any clubs o r organizations such as mosque groups, unions, fraternal or athletic groups, or [...] and heating? Not hard at all 01/10/2023 [facility] [place] of Occupat ional Health - Occupational Stress [...] your living situation today? I have a [facility] place to live 01/10/2023 Education Answer Date [...] PM CDT documented as of this encounter Progress Notes * Abimbola Bowles M.D. - 04/14/2023 11:20 AM CST Correspondence To: Dr. Bowles Referring provider: Joseph Sierra M.D. Patient discussed with supervising wardrobe image consultant, Dr. Gaitan, who concurs with the assessment and plan. SUBJECTIVE Chief Complaint History of Present Illness Ms. Mendoza is a 67 y.o. female who presents for follow-up for pruritus involving the toes. Background: The patient was seen in clinic for this problem on 01/24/2023 at which time she describes recurrentepisodes of toe pruritus with erythema and intermittent blister formation. She had previously received multiple rounds of oral antibiotics to help with these flares. Dyshidrotic eczema, contact dermatitis, and less likely infectious etiology were considered. She has already undergone a thorough evaluation for peripheral vascular disease, neuropathy, and osteomyelitis with MRI,, vascular studies, and EMG which have been unremarkable. For treatment, topical clobetasol ointment was recommended to be applied under occlusion nightly. She was instructed to continue this for 1 week then transitionedto every other day. Today: Today the patient notes that her symptoms improved with topical clobetasol. Then in mid March shedeveloped increasing itching and redness of the affected toe. At that time she was using clobetasolevery other day. By April 05 it was very red and itchy. She reached out via the portal and increasing clobetasol to twice daily use for 2 weeks was recommended. She had subsequent improvement in h er symptoms over the course of the following 4 days. Toes now completely asymptomatic and redness has resolved with remaining purple coloring that is fading slowly. She denies any pain, burning, or tenderness to palpation of the toe during flares or between flares. She has not had any recurrence ofblister formation. She denies any associated triggers and does not associate flares with exposure to cold. PAST MEDICAL HISTORY 1. Right moustache area inferior to right nasal ala: History of basal cell carcinoma, status post Mohs surgery by Dr. King in [place], [place] 2. Left nasal bridge: History of basal cell carcinoma, status post Mohs surgery by Dr. King in [place], [place] 3. Left upper arm: History of squamous cell carcinoma, status [place] 4. Right forehead: History of nodular basal cell carcinoma, status post Mohs surgery on 11/24/18 at [facility] 5. Right lateral olson: History of superficial nodular basal cell carcinoma, status post electrodesiccation and curettage on 11/24/18 at [facility] Review of Systems Denies unintentional weight loss or lymphadenopathy. Past Medical/Surgical History Reviewed OBJECTIVE Physical Exam General: Well appearing female in no acute distress. Alert and Oriented. Eyes: No eyelid abnormalities. Skin: A focused exam of the patient's feet was performed and is significant for: Involving the fourth digit of the right foot and adjacent lateral surface of the third toe there are purpuric patches. When feet are in dependent positioned there is ill-defined erythema of 1st, 2nd, and 5th toes of the right foot and the 1st, 4th and 5th digits of the left foot ASSESSMENT / PLAN Assessment and Plan # Acrocyanosis # History of episodic pruritus and erythema - right 4th toe # Factor 5 Leiden heterozygous on Eliquis Today's physical exam is most consistent with acrocyanosis. She has already undergone a thorough evaluation for peripheral vascular disease, neuropathy, and osteomyelitis with MRI, vascular studies, and EMG which have been unremarkable. Cause for episodic flares of pruritus and erythema involving the fourth digit of the right foot is unclear. She has had reduction in number of flares and durationof flares with use of topical clobetasol. I will reach out to the patient's vascular team to inquire as to whether she would benefit from further workup from their standpoint. For treatment I recommended that she continue clobetasol every other day for maintenance therapy. Should she have a flare, she should increase to clobetasol twice daily use for 2 weeks at a time. She was also provided with a prescription for topical amitriptyline-ketamine 2-0.5% cream to be applied 3 times daily as neededduring flares for pruritus. The patient was in agreement with this plan and all questions were answered. PATIENT EDUCATION Ready to learn. No apparent learning barriers were identified. Learning preferences include listening. Explained diagnosis and treatment plan; patient/guardian of patient expressed understanding of the content. Abimbola Bowles MD PGY-4, Dermatology PAINTER HELPER Associated attestation - Danita Rhodes M.D. - 04/15/2023 8:14 AM SIGN PAINTER HELPER I saw and evaluated the patient, participating in the hilliard portions of the service. I reviewed the resident/fellow???s note. I agree with the resident/fellow???s findings and plan. documented in this encounter Plan of Treatment Upcoming Encounters Date Type Department Care Team (Late st Contact Info) Description 10/25/2023 2:00 PM CDT Office Visit Department of Dermatology in [address] [phone] Daryl Dorsey M.D. [address] [place] [phone] Discharge Disposition: Home or Self Care documented as of this encounter Visit Diagnoses Diagnosis Acrocyanosis (HCC)- Primary Pruritus Mutation Factor V Leiden Heterozygous (HCC) documented in this encounter Care Teams Heel Painter Relationship Specialty Start Date End Date Elsewhere, Pcp PCP - General Family Medicine 10/10/17 documented as of this encounter
--- OUTSIDE RECORDS SUMMARY | 2023-06-17 12:08 | XMS_ITS | Encounter Summary ---
Author Name Unknown Organization [facility] Address [address] [place] [address] Care Team Providers Care Industrial Electrician Name Role Phone Elsewhere, Pcp Primary Care Provider Unavailabl e Reason for Visit * Appointment Request (Routine) - Closed Specialty Diagnoses / Procedures Referred By Minna limon Referred To Contact Dermatology Diagnoses Pruritus Referral ID Status Reason Start Date Expiration Date Visits Re quested Visits Authorized [id number] Closed 05/19/2023 05/18/2024 1 1 Encounter Details Date Type Department Care Team (Late st Contact Info) Description 05/25/2023 10:20 AM CDT Office Visit Department of Dermatology in [place], [place] [address] [place] [phone] Abimbola Bowles M.D. [address] [place] [phone] Pruritus (Primary Dx); Dermatitis Social History Tobacco Use Types Packs/Day Years [...] How often do you attend chur or scientologist services? 1 to 4 times per year 12/24/2021 Do you belong to any clubs o r organizations such as shinto groups, unions, fraternal or athletic groups, or [...] and heating? Not hard at all 01/10/2023 [facility] of Occupat ional Health - Occupational Stress [...] your living situation today? I have a [facility] place to live 01/10/2023 Education Answer Date [...] Progress Notes * Abimbola Bowles M.D. - 05/25/2023 10:20 AM CDT Correspondence To: Dr. Bowles Referring provider: No ref. provider found Patient discussed with supervising clinical program consultant, Dr. Ford, who concurs with the assessment and plan. SUBJECTIVE Chief Complaint Foot rash History of Present Illness Ms. Mendoza is a 67 y.o. female who presents for follow-up of pruritus and rash involving the toes. Background: The patient was seen for this problem on 01/24 at which time she described recurrent episodes of toe pruritus with erythema and intermittent blister formation. She had received multiple rounds of oral antibiotics and trialed terbinafine x2 weeks. Dyshidrotic eczema, contact dermatitis and less likely infectious etiology were considered. She would already undergo a thorough evaluation for peripheral vascular disease, neuropathy, and osteomyelitis with MRI, vascular studies, and EMG which have been unremarkable. For treatment topical clobetasol ointment was recommended to be applied under occlusion nightly for 1 week then transitioned to every other day. She was seen for follow-up on 04/14/2023 at which time she reported improvement with topical clobetasol, then recurrence in mid March followed by improvement with topical clobetasol. At her last visit the toes appeared purpuric but she denied any pain burning or itching. 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 For flares, we recommended clobetasol twice daily for 2 weeks at a time. We also recommended and prescribed amitriptyline-ketamine cream apply 3 times daily as needed during flares for treatment of pruritus. In the interim multiple portal messageshave been sent regarding amitriptyline ketamine cream. The patient reports that she developed a rash secondary to this cream. She was recommended to discontinue the amitriptyline-ketamine and continue clobetasol twice daily for flares and every other day for maintenance therapy. Today: The patient reports that she continues to have spread of the rash extending from the toes of the top of the foot. She also appreciates skin shedding on the plantar aspect of the toes and metatarsals.Rash is associated with itching which wakes her from her sleep. She has not currently using clobetasol on these areas as she does not think it has helped. Past Medical/Surgical History Reviewed OBJECTIVE Physical Exam General: Well appearing female in no acute distress. Alert and Oriented. Eyes: No eyelid abnormalities. Skin: A focused exam of the patient's feet was performed and is significant for: Involving the dorsal right foot and toes there is an erythematous, scaly, arcuate plaque ANTONIO prep of skin scrapings from advancing edge was negative for fungal elements ASSESSMENT / PLAN Assessment and Plan # Pruritus # Dermatitis involving the right foot/toes Today's physical exam is most consistent with dermatitis versus tinea pedis. She has already undergone a thorough evaluation for peripheral vascular disease, neuropathy, and osteomyelitis with MRI, vascular studies, and EMG which have been unremarkable. Flares previously responded to clobetasol butrecurred. She noted worsening with compounded amitriptyline-ketamine cream. ANTONIO prep performed today was negative for fungal elements. For further workup we recommended skin biopsy. After discussion of the risks, benefits, and options the patient was agreeable to proceed with skin biopsy, see procedure note below. Further recommendations will be provided to the patient pending biopsy results. For pruritus, she may continue [id number] Benadryl as needed. CONSENT Discussed the risks, benefits, alternatives, and the necessity of other members of the healthcare team participating in the procedure. All questions answered and consent given. UNIVERSAL PROTOCOL Procedural pause conducted to verify: correct patient identity, procedure to be performed, and as applicable, correct side and site, correct patient position, and availability of implants, special equipment, or special requirements. PROCEDURE INFORMATION Punch biopsy. We explained the potential diagnosis and recommended that we obtain a biopsy. The risks and benefits of the procedure were discussed, and the patient consented to these procedures. Using 1% lidocainewith epinephrine for local anesthesia, a 4-mm punch biopsy was obtained from the right dorsal foot.Biopsy submitted to Dermatopathology. Biopsy site closed with a top layer of 4-0 nylon. The skin sutures need to be removed in 10-14 days. Dressing was applied, and wound care instructions were explained. Biopsy results and any further recommendations will be communicated to the patient by letter. Patient given pamphlet [id number]. PATIENT EDUCATION Ready to learn. No apparent learning barriers were identified. Learning preferences include listening. Explained diagnosis and treatment plan; patient/guardian of patient expressed understanding of the content. Abimbola Bowles MD PGY-4, Dermatology Associated attestation - Waldo Nielson M.B.B.S., M.D. - 05/26/2023 1:26 PM CDT I saw and evaluated the patient, participating in the hilliard portions of the service. I reviewed the resident???s note. I agree with the resident???s findings and plan. I was present for the hilliard/critical portion and immediately available for the entire procedure. documented in this encounter Plan of Treatment Upcoming Encounters Date Type Department Care Team (Late st Contact Info) Description 10/25/2023 2:00 PM CDT Office Visit Department of Dermatology in [address] [phone] Daryl Dorsey M.D. [address] [place] [address] Discharge Disposition: Home or Self Care documented as of this encounter Procedures Procedure Name Priority Date/Time Associated Diagnosis Comments DERMATOPATHOLOGY Routine 05/25/2023 10:5 2 AM CDT documented in this encounter Results * Dermatopathology (05/25/2023 10:52 AM CDT) [...] Abimbola Bowles M.D. LAB PATH DERM JULY [facility] Performing Organization Address City/State/[facility] Co de Phone Number [facility] 200 [place] [address], [facility] [address] [facility] 200 [place] [phone] documented in this encounter Visit Diagnoses Diagnosis Pruritus- Primary Dermatitis documented in this encounter Care Teams Industrial Electrician Relationship Specialty Start Date End Date Elsewhere, Pcp PCP - General Family Medicine 10/10/17 documented as of this encounter
--- OUTSIDE RECORDS SUMMARY | 2023-06-17 12:08 | XMS_ITS | Encounter Summary ---
Author Name Unknown Organization [facility] Address [address] [place] [address] Care Team Providers Care Airfield Engineer Officer Name Role Phone Elsewhere, Pcp Primary Care Provider Unavailabl e Encounter Details Date Type Department Care Team (Late st Contact Info) Description 04/14/2023 12:10 PM BANKING ASSISTANT Ancillary Procedure Department of Dermatology Social History [...] often do you attend chur ch or spiritism services? 1 to 4 times per year [...] and heating? Not hard at all 01/10/2023 [facility] of Occupat ional Health - Occupational [...] your living situation today? I have a [facility] place to live 01/10/2023 Education Answer [...] CDT Office Visit Department of Dermatology in [address] [phone] Daryl Dorsey M.D. [address] [place] [phone] Discharge Disposition: Home or Self Care documented as of this encounter Procedures Procedure Name Priority Date/Time Associated Diagnosis Comments DERMATOLOGY IMAGE EXAM Routine 04/14/2023 12:10 PM BANKING ASSISTANT documented in this encounter Results * foot, right dorsal fourth toe 428-Dermatology Image Exam (04/14/2023 12:10 PM BANKING ASSISTANT) 04/14/2023 12:1 0 PM BANKING ASSISTANT Narrative IIMS - 04/14/2023 12:12 PM BANKING ASSISTANT This order has been created and auto-finalized to support the import of images acquired without order. The clinical documentation to support these images can be found on the encounter that produced images. Provider Not In System IMG NON RAD IMAGI NG PROCEDURES [facility] NA documented in this encounter Visit Diagnoses Not on filedocumented in this encounter Care Teams Airfield Engineer Officer Relationship Specialty Start Date End Date Elsewhere, Pcp PCP - General Family Medicine 10/10/17 documented as of this encounter
--- OUTSIDE RECORDS SUMMARY | 2023-06-17 12:08 | XMS_ITS | Encounter Summary ---
Author Name Unknown Organization [facility] Address [address] [place] [address] Care Team Providers Care Certified Driver Examiner Name Role Phone Elsewhere, Pcp Primary Care Provider Unavailabl e Encounter Details Date Type Department Care Team (Late st Contact Info) Description 04/28/2023 Clinical Communication Division of Thoracic Surgery in [place], [place] [address] [place] [phone] Rossana Ross M.D. [address] [place] [phone] Social History Tobacco Use Types Packs/Day Years [...] often do you attend chur ch or yarsanism services? 1 to 4 times per year 12/24/2021 Do you belong to any clubs o r organizations such as bahai groups, unions, fraternal or athletic groups, or [...] when you are drinking? 1 or 2 2 Q3: How often do you have si x or more drinks on one occasion? Never 12/24/2021 Overall Financial Resource Strain (CARDIA) Answe r Date Recorded How hard is it for you to pa y for the very basics like food, housing, medical care, and heating? Not hard at all 01/10/2023 [facility] of Occupat ionwi Health - Occupational Stress Questionnaire Answer Date [...] your living situation today? I have a [facility] place to live 01/10/2023 Education Answer Date [...] CDT Office Visit Department of Dermatology in [address] [phone] Daryl Dorsey M.D. [address] [place] [address] Discharge Disposition: Home or Self Care documented as of this encounter Visit Diagnoses Not on filedocumented in this encounter Care Teams Certified Driver Examiner Relationship Specialty Start Date End Date Elsewhere, Pcp PCP - General Family Medicine 10/10/17 documented as of this encounter
--- OUTSIDE RECORDS SUMMARY | 2023-06-17 12:08 | XMS_ITS | Encounter Summary ---
Author Name Unknown Organization [facility] Address [address] [place] [address] Care Team Providers Care Gastrointestinal Technician Name Role Phone Elsewhere, Pcp Primary Care Provider Unavailabl e Encounter Details Date Type Department Care Team (Late st Contact Info) Description 04/06/2023 Clinical Communication Department of Dermatology in [place], [place] [address] [place] [phone] Regina Amaya, RJosé AntonioN. Social History Tobacco Use Types Packs/Day Years [...] often do you attend chur ch or druze services? 1 to 4 times per year 12/24/2021 Do you belong to any clubs o r organizations such as druze groups, unions, fraternal or athletic groups, or [...] and heating? Not hard at all 01/10/2023 [facility] of Occupat ional Health - [...] your living situation today? I have a [facility] place to live 01/10/2023 Education Answer [...] PM CDT documented as of this encounter Miscellaneous Notes * Telephone Encounter - Regina Amaya R.N. - 04/06/2023 10:12 AM PROGRESSIVE CARE NURSE Information Discussed Love called this report a flare of her right 4th toe pruritus and erythema. Dr. Rodriguez saw her in January 2023 for this condition and recommended nightly clobetasol for a week and then taper off. She had success with this treatment and reports she had no symptoms from the end of February until2 weeks ago. 1 week ago she started nightly clobetasol use. Last night the itching was worse so shewashed her foot in the middle of the night, applied a second application of clobetasol and hydrocortisone and took benadryl to get back to sleep. She reports that the symptoms have mostly been stablesince initiating the nightly clobetasol. I discussed with her that hydrocortisone is a steroid and that she can use it once or twice during the daytime, and that she should only apply clobetasol once at night so she doesn't over use topicalsteroids. I advised taking benadryl at bedtime if she finds it helpful to sleep. She will send photos for review by Dr. Rodriguez. PLAN Disposition/Recommendation: notified provider and awaiting recommendations Information/Education: patient/caller able to teach back Caller agreeable to plan of care: yes The following references were used: nursing clinical judgement and previous plan of care date: 01/25/2024 RESSIVE CARE NURSE documented in this encounter Plan of Treatment Upcoming Encounters Date Type Department Care Team (Late st Contact Info) Description 10/25/2023 2:00 PM CDT Office Visit Department of Dermatology in [address] [phone] Daryl Dorsey M.D. [address] [place] [address] Discharge Disposition: Home or Self Care documented as of this encounter Visit Diagnoses Not on filedocumented in this encounter Care Teams Gastrointestinal Technician Relationship Specialty Start Date End Date Elsewhere, Pcp PCP - General Family Medicine 10/10/17 documented as of this encounter
--- OUTSIDE RECORDS SUMMARY | 2023-06-17 12:08 | XMS_ITS | Clinical Summary ---
Author Name Unknown Organization [facility] Address [place], [place] [address] Care Team Providers Care Mohel Name Role Phone Ligia Cash MD Primary Care Provider [phone] Allergies Active Allergy Reactions Criticality Noted Date Comments Adhesive Rash 02/18/2016 Medications Medication Sig Dispensed Refills Start Date End Date Status metFORMIN (GLUCOPHAGE) 500 mg tablet Take 2 tablets by mouth 2 times daily with meals. 0 09/18/2013 Active buPROPion (WELLBUTRIN XL) 150 mg Extended-Release tablet Take 2 tablets by mouth every morning. 0 09/18/2013 Active warfarin (COUMADIN) 5 mg tablet Take 1 tablet by mouth once daily. 0 09/18/2013 Active warfarin (COUMADIN) 2 mg tablet Take 1 tablet by mouth once daily. 0 09/18/2013 Active hydrocortisone butyrate (LOCOID OINTMENT) 0.1 % oint Apply topically to affected area(s) 2 times daily. 1 Tube 0 09/18/2013 Active diazepam (VALIUM) 5 mg tablet Take 1 tablet by mouth every 6 hours if needed. 0 09/18/2013 Active Omeprazole 20 mg tablet Take 1 tablet by mouth once daily. 0 09/18/2013 Active warfarin (COUMADIN) 1 mg tablet Take 1 tablet by mouth once daily. 90 tablet 0 09/18/2013 Active atorvastatin (LIPITOR) 10 mg tablet Take 1 tablet by mouth once daily. 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 Immunizations Name Administration Dates Next Due Influenza, IIV3 (Age >=3 years) 12/12/2014 Tdap 01/11/2014 Zoster (Zostavax-ZVL, live) 01/11/2014 Family History Medical History Relation Name Comments Hypertension Brother Other Father old age Other Mother PE Genetic Sister Relation Name Status Comments Brother Father Mother Sister Social History Tobacco Use Types Packs/Day Years Used Date Smoking Tobacco: Never Smokeless Tobacco: Never Tobacco Cessation:Counseling Given: Yes Alcohol Use Standard Drinks/Week Comments Yes 0 (1 standard drink = 0.6 oz pur e alcohol) Sex and Gender Information Value Date Recorded Sex Assigned at Not on file Gender Identity Not on file Sexual Orientation Not on file Obstetrics History Last Filed Vital Signs Vital Sign Reading Time Taken Comments Blood Pressure 125/84 01/17/2015 2:01 PM SALES ASSISTANT INSTITUTIONAL SALES Pulse 84 01/17/2015 2:01 PM SALES ASSISTANT INSTITUTIONAL SALES Temperature 36.7 ??C (98.1 ??F) 01/17/2015 2:01 PM CS T Respiratory Rate - - Oxygen Saturation 92% 01/17/2015 2:01 PM SALES ASSISTANT INSTITUTIONAL SALES Inhaled Oxygen Concentration - - Weight 96.8 kg (213 lb 7 oz) 01/17/2015 2:01 PM SALES ASSISTANT INSTITUTIONAL SALES Height 157.5 cm (5' 2) 01/17/2015 2:01 PM SALES ASSISTANT INSTITUTIONAL SALES Body Mass Index 39.04 01/17/2015 2:01 PM SALES ASSISTANT INSTITUTIONAL SALES Plan of Treatment Health Maintenance Due Date Last Done Comments BMI (ht and wt on same day) for age 18+ 07/31/1971 Hepatitis C screening for ag e 18-79 07/31/1971 Lipids for age 45-75 1998 Mammogram for age 45-75 1998 Zoster (shingles) series for age 50+ (2 of 3) 03/08/2014 01/11/2014 Depression screening for age 12+ 05/27/2016 05/28/2015, 05/07/2015, 04/23/2015 DEXA/DXA scan for age 65+ 2018 Medicare Wellness for age 65+ 2018 Pneumococcal series for age 65+ (1 of 1 - PCV) 2018 COVID-19 vaccine series ( - 2022-24 season) 2022 Influenza for age 65+ 11/12/2022 12/12/2014 Tetanus booster 01/12/2024 01/11/2014 Colonoscopy through age 75 02/17/202602/17, 02/18/2016, 11/24/2009, Additional history exists Tdap Completed 01/11/2014 Procedures Procedure Name Priority Date/Time Associated Diagnosis Comments COLONOSCOPY 02/18/2016 11:36 AM SALES ASSISTANT INSTITUTIONAL SALES from Last 3 Months or Most Recently Relevant to Health Maintenance Results * COLONOSCOPY (02/18/2016 11:36 AM SALES ASSISTANT INSTITUTIONAL SALES) 02/18/2016 11:3 6 AM SALES ASSISTANT INSTITUTIONAL SALES Narrative Transcriptions Alan Carreno MD - 02/18/2016 12:27 PM CST Patient Name: Love Mendoza Procedure Date: 02/18/2016 Gender: Female Date of : 1955 Admit Type: Outpatient Procedure: Colonoscopy Proceduralist: Alan Carreno MD Indications/Pre-Op Diagnosis: Screening in patient at increased risk:Family history of 1st-degree relative withcolorectal cancer Medications: Fentanyl 200 micrograms IV, Midazolam 4 mgIV, The level of sedation administered wasminimal Procedure Description: The patient had risks, benefits and alternatives explained to andgave informed consent. The patient had a stable cardiopulmonary status and judged an adequate candidate for conscious sedation. The [id number]-[id number] [id number] was passed through the anus with the intentionof advancing to the cecum. The scope was advanced to the sigmoid colon before the procedure was aborted. Medications were given. The patient tolerated the procedure poorly due to the patient's excessivediscomfort during the procedure. The quality of the bowel preparation was excellent. The colonoscopy was unusually difficult due to thepatient's excessive discomfort during the procedure. The rectum wasphotographed. Complications: No immediate complications. Estimated Blood Loss & Specimen: Estimated blood loss: none. Specimen collected - None Findings: Many small-mouthed diverticula were found in the sigmoid colon. Impressions/Post-Op Diagnosis: - Diverticulosis in the sigmoid colon. - No specimens collected. Recommendation: - Patient has a contact number available for emergencies. The signsand symptoms of potential delayed complications were discussed with the patient. Return to normal activities tomorrow. Written discharge instructions were provided to the patient. - Resume previous diet. - Continue present medications. - Repeat colonoscopy could be consider at a center that uses propofol sedation or a CT colonography could be obtained in the future. - Resume Coumadin (warfarin) at prior dose today. Refer to primary physician for further adjustment of therapy. Alan Carreno MD 02/18/2016 12:27:24 PM This report has been signed electronically. Note Initiated On: 02/18/2016 11:36 AM Procedure Code(s): --- Professional --- 95163, 53, Colonoscopy, flexible;diagnostic, including collection of specimen(s) bybrushing or washing, when performed (separateprocedure) Diagnosis Code(s): --- Professional --- K58.9, Irritable bowel syndrome withoutdiarrhea K57.30, Diverticulosis of large intestine without perforation or abscess withoutbleeding CPT copyright 2015 [employer] [employer]. All rights reserved. The codes documented in this report are preliminary and upon medical record coder reviewmay be revised to meet current compliance requirements. Scope In: 11:39:29 AM Scope Out: 11:47:10 AM Alan Carreno MD PROCEDURE ORD from Last 3 Months or Most Recently Relevant to Health Maintenance Care Teams Mohel Relationship Specialty Start Date End Date Ligia Cash MD PCP - General Internal Medicine 02/18/16
--- OUTSIDE RECORDS SUMMARY | 2023-06-17 12:08 | XMS_ITS | Encounter Summary ---
Author Name Unknown Organization [facility] Address [address] [place] [address] Care Team Providers Care Lace Machine Operator Name Role Phone Elsewhere, Pcp Primary Care Provider Unavailabl e Reason for Visit * Reason Comments Med Refill Encounter Details Date Type Department Care Team (Late st Contact Info) Description 03/24/2023 Refill Division of Endocrinology in [place], [place] [address] [place] [phone] Tana Vazquez M.D. [address] [place] [phone] Med Refill Social History Tobacco Use Types [...] any clubs o r organizations such as uatsdin groups, unions, fraternal or athletic groups, or [...] and heating? Not hard at all 01/10/2023 [facility] of Occupat ionpr Health - Occupational Stress Questionnaire Answer Date [...] your living situation today? I have a [facility] place to live 01/10/2023 Education Answer [...] CDT Office Visit Department of Dermatology in [address] [phone] Daryl Dorsey M.D. [address] [place] [phone] Discharge Disposition: Home or Self Care documented as of this encounter Visit Diagnoses Diagnosis PreDiabetes documented in this encounter Care Teams Lace Machine Operator Relationship Specialty Start Date End Date Elsewhere, Pcp PCP - General Family Medicine 10/10/17 documented as of this encounter
== END 2023-06-06 09:06 | disposition home or self-care (01) ==
LOC: NFLDREF 06-10 08:33
PROVIDERS: PCP Internal Medicine; Referring Provider Internal Medicine; Visit Provider Internal Medicine
DX: E53.8 Deficiency of other specified B group vitamins (principal); E78.5 Hyperlipidemia, unspecified; M81.0 Age-related osteoporosis without current pathological fracture; M85.80 Other specified disorders of bone density and structure, unspecified site
CPT/HCPCS: 80053; 80061; 82306; 82607

== ENCOUNTER 2023-09-14 14:45 | Outpatient (CLI) | payer MEDICARE, BC, SELFPAY ==
--- OUTSIDE RECORDS SUMMARY | 2023-09-14 14:48 | XMS_ITS ---
Author Organization [facility] Address [address] [place] [address] Care Team Providers Care Operating Room Rn Name Role Phone Unavailable Unavailable Unavailable Surgery Details Not on file Complications Check Surgery Details section. Procedure Estimated Blood Loss Check Surgery Details section. Procedure Findings Check Surgery Details section. Procedure Specimens Taken Check Surgery Details section.
--- OUTSIDE RECORDS SUMMARY | 2023-09-14 14:48 | XMS_ITS | Clinical Summary ---
Author Organization [facility] Address [place], [place] [address] Care Team Providers Care Exercise Specialist Name Role Phone Liiga Cash MD Primary Care Provider [phone]- [phone] Allergies Active Allergy Reactions Criticality Noted Date [...] Comments Blood Pressure 125/84 01/17/2015 2:01 PM CLEAN OUT DRILLER HELPER Pulse 84 01/17/2015 2:01 PM CLEAN OUT DRILLER HELPER Temperature 36.7 ??C (98.1 ??F) 01/17/2015 2:01 PM CS T Respiratory Rate - - Oxygen Saturation 92% 01/17/2015 2:01 PM CLEAN OUT DRILLER HELPER Inhaled Oxygen Concentration - - Weight 96.8 kg (213 lb 7 oz) 01/17/2015 2:01 PM CLEAN OUT DRILLER HELPER Height 157.5 cm (5' 2) 01/17/2015 2:01 PM CLEAN OUT DRILLER HELPER Body Mass Index 39.04 01/17/2015 2:01 PM CLEAN OUT DRILLER HELPER Plan of Treatment Health Maintenance Due Date [...] 1 - PCV) 2018 COVID-19 vaccine series (1 - 2022- season) 2022 Influenza for age 65+ 11/13/2023 12/12/2014 Tetanus booster 01/12/2024 01/11/2014 Colonoscopy through age 75 02/17/202602/17, 02/18/2016, 11/24/2009, Additional history exists Tdap Completed 01/11/2014 Procedures Procedure Name Priority Date/Time Associated Diagnosis Comments COLONOSCOPY 02/18/2016 11:36 AM CLEAN OUT DRILLER HELPER from Last 3 Months or Most Recently Relevant to Health Maintenance Results * COLONOSCOPY (02/18/2016 11:36 AM CLEAN OUT DRILLER HELPER) 02/18/2016 11:3 6 AM CLEAN OUT DRILLER HELPER Narrative Transcriptions Alan Carreno MD - 02/18/2016 [...] adequate candidate for conscious sedation. The PCF-[id number] [id number] was passed through the anus with the [...] 11:36 AM Procedure Code(s): --- Professional --- 60035, 53, Colonoscopy, flexible;diagnostic, including collection of specimen(s) bybrushing or washing, when performed (separateprocedure) Diagnosis Code(s): --- Professional --- K58.9, Irritable bowel syndrome withoutdiarrhea K57.30, Diverticulosis of large intestine without perforation or abscess withoutbleeding CPT copyright 2015 [employer]. All rights reserved. The codes documented in this report are preliminary and upon repair manager reviewmay be revised to meet current compliance requirements. Scope In: 11:39:29 AM Scope Out: 11:47:10 AM Alan Carreno MD PROCEDURE ORD from Last 3 Months or Most Recently Relevant to Health Maintenance Care Teams Exercise Specialist Relationship Specialty Start Date End Date Ligia Cash MD PCP - General Internal Medicine 02/18/16
--- OUTSIDE RECORDS SUMMARY | 2023-09-14 14:48 | XMS_ITS | Clinical Summary ---
Author Organization [facility] Address [address] [place] [address] Care Team Providers Care Business Assistant Name Role Phone Elsewhere, Pcp Primary Care Provider Unavailabl e Source Comments Patient records contain information from all sites at [facility]. For routine questions regarding patient records, call [phone] during business hours, M-F 8:00 AM - 5:00 PM Central Time. Record requests for emergency care only can be directed to [phone] at any time.[facility] Allergies Active Allergy Reactions Criticality Noted Date [...] If fexofenadine does not relieve allergy symptoms. Active cyanocobalamin, vitamin B-12, 1,500 mcg tablet,disintegra ting Dissolve 1,500 mcg in the mouth daily. Active polyethylene glycol (MIRALAX) 17 gram powder packet Take 1 packet (17 g total) by mouth daily. Dissolve each 17 g dose in 240 mLs (8 ounces) of beverage.; Take while using pain medications and until noted with return of normal bowel function; hold for loose stools/diarrhea 07/08/2020 Active Additional Information Patient taking differently:17 [...] normal bowel function; hold for loose stools/diarrhea 07/08/2020 Active Additional Information Patient taking differently: 1 tabletoralDaily, 1 tablet at night, miralax in morning if needed., Reported on 10/02/2021 acetaminophen (TYLENOL) 500 mg capsule Take 2 capsules (1,000 mg total) by mouth every 6 (six) hours as needed for pain. 12/11/2020 Active Eliquis 2.5 mg tablet Take 2.5 mg by mouth 2 (two) times a day. 03/17/2021 Active cholecalciferol (VITAMIN D3) 50 mcg (2,000 Unit) capsule Take 50 mcg by mouth daily. 04/07/2021 Active loratadine (CLARITIN) 10 mg tablet Take 10 mg by mouth daily. Active FLUoxetine (PROzac) 20 mg capsule Take 20 mg by mouth daily. 10/12/2022 Active hydrocortisone (HYTONE) 2.5 % cream Apply 1 Application topically as needed for irritation. 10/09/2022 Active multivit with calcium,iron,min (MULTIPLE VITAMIN, WOMENS ORAL) Active halobetasol (ULTRAVATE) 0.05 % ointment Apply topically 2 (two) times a day. Apply to foot under a white cotton sock 30 g 1 01/25/2023 Active metFORMIN XR (GLUCOPHAGE-XR) 500 mg 24 [...] the toes. 30 g 1 04/14/2023 Active phentermine-topir amate (QSYMIA) 15-92 mg capsule, ER multiphase 24 hr ext release capsule Take 1 capsule by mouth every morning before breakfast. 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 1 to 4 times per year 12/24/2021 Do you belong to any clubs o r organizations such as sikh groups, unions, fraternal or athletic groups, or [...] and heating? Not hard at all 01/10/2023 [facility] - Occupational Stress Questionnaire Answer Date [...] your living situation today? I have a [facility] place to live 01/10/2023 Education Answer [...] Upcoming Encounters Date Type Department Care Team (Latest Contact Info) Description 10/25/2023 2:00 PM CDT Office Visit Department of Dermatology in [address] [phone] Daryl Dorsey M.D. [address] [place] [phone] Discharge Disposition: Home or Self Care 11/03/2023 11:00 AM CDT Office Visit Division of Endocrinology in [place], [place] [address] [place] [phone] Tana Vazquez M.D. [address] [place] [phone] Health Maintenance Due Date Last Done Comments CT Colonography 1955 Cologuard 1955 Hepatitis C Screening 1955 Lipid (Cholesterol) Screening 1955 Mammogram 1955 Colonoscopy 02/17/2021 02/18/2016 Colorectal Cancer Surveillance 02/17/2021 Fasting Glucose for Diabetes Screening 09/17/2021 09/17/2020, 08/09/2020, 08/09/2020, Additional history exists COVID-19 Vaccine (2022-2 4 season) 2023 11/30/2022, 11/27/2021, 08/28/2021, Additional history exists Depression Screening (Annual PHQ-2) 03/14/2023 Fall Risk Screen (Annual) 03/14/2023 Influenza Vaccine (#1) 2023 , 12/26/2021, 12/26/2021, Additional history exists DTaP,Tdap,and Td Vaccines (2 - Td or Tdap) 01/12/2024 01/11/2014 Zoster Vaccines Completed 05/18/2018, 10/14, 01/11/2014 Pneumococcal vaccine (65+ years) Completed 07/19/19, 08/29/2018 Bone Density Scan (Osteoporo sis Screen) Discontinued 09/17/2020 Medical Devices Implanted Type Area Plastic Sheeting Cutter Device Identifier Shelf Expiration Date Model / Serial / Lot Clp Hrzn Ti 6 Clp Md Bello - [id number] Implanted:Qt y: 1 on 08/08/2020 by Blaire Marin M.D. at [facility] Hardware e.g. pins/screws /rods Abdomen [employer] [id number] 10/07/2024263622 / / [id number] Clp Hrzn Ti 6 Clp Md Bello - [id number] Implanted:Qt y: 1 on 08/08/2020 by Blaire Marin M.D. at [facility] Hardware e.g. pins/screws /rods Abdomen [employer] [id number] 10/07/2024 / / [id number] 2 Clp Hrzn Ti 6 Clp Md Bello - [id number] Implanted:Qt y: 1 on 08/08/2020 by Blaire Marin M.D. at [facility] Hardware e.g. pins/screws /rods Abdomen [employer] [id number] 10/07/2024 / / [id number] 2 Clp Hrzn Ti 6 Clp Sm Red - [id number] Implanted:Qt y: 1 on 08/08/2020 by Blaire Marin M.D. at [facility] Hardware e.g. pins/screws /rods Abdomen [employer] [id number] 11/11/2024 / [id number] 4 Clp Hrzn Ti 6 Clp Sm Red - [id number] Implanted:Qt y: 1 on 08/08/2020 by Blaire Marin M.D. at [facility] Hardware e.g. pins/screws /rods Abdomen [employer] [id number] 11/11/2024J200003 4 Clp Hrzn Ti 6 Clp Sm Red - [id number] Implanted:Qt y: 1 on 08/08/2020 by Blaire Marin M.D. at [facility] Hardware e.g. pins/screws /rods Abdomen [employer] [id number] 11/11/2024 [id number] / / [id number] 4 Clp Hrzn Ti 6 Clp Sm Red - [id number] Implanted:Qt y: 1 on 08/08/2020 by Blaire Marin M.D. at [facility] Hardware e.g. pins/screws /rods Abdomen [employer] [id number] 11/11/2024 / / [id number] 4 Clp Hrzn Ti 6 Clp Md Bello - [id number] Implanted:Qt y: 1 on 08/08/2020 by Blaire Marin M.D. at [facility] Hardware e.g. pins/screws /rods Abdomen [employer] [id number] 10/07/2024848574 / / [id number] 2 Hip Implant Hip Implant Left: Hip Mesh Or Patch Mesh or Patch Abdomen Hernandez Adhn Seprafilm 5x6 - [id number] Implanted:Qt y: 1 on 07/07/2020 by Blaire Marin M.D. at [facility] Mesh or Patch N/A: Abdomen Olivarez 09/29/2022 [id number] / / [id number] [facility] Prf Santosh Polyprp 6x6 - [id number] Implanted:Qt y: 1 on 07/07/2020 by Blaire Marin M.D. at [facility] Mesh or Patch N/A: Abdomen C.R.Bard 09/08/2024 [id number] / / [id number] Procedures Procedure Name Priority Date/Time Associated Diagnosis Comments COMPREHENSIVE METABOLIC PANEL, S/P Routine 09/17/2020 2:58 PM CDT Fdc Antibiotic Treatment from Last 3 Months or Most Recently Relevant to Health Maintenance Results * (ABNORMAL) Comprehensive Metabolic Panel (09/17/2020 2:58 PM CDT) [facility] Potassium, S 4.8 3.6 - 5.2 mmol/L 09/17/2020 3:57 PM CDT DTL Sodium, S 142 135 - 145 mmol/L 09/17/2020 3:57 PM CDT DTL Chloride, S 107 98 - 107 mmol/L 09/17/2020 3:57 PM CDT DTL Bicarbonate, S 25 22 - 29 mmol/L 09/17/2020 3:57 PM CDT DTL Anion Gap 10 7 - 15 09/17/2020 3:57 PM CDT DTL BUN (Blood Urea Nitrogen), S 25(H) 6 - 21 mg/dL 09/17/2020 3:57 PM CDT DTL Creatinine 1.23(H) 0.59 - 1.04 mg/dL 09/17/2020 3:57 PM CDT DTL eGFR-Non Black/ 45(L) >=60 mL/min/BS A 09/17/2020 3:57 PM CDT DTL Comment: ----ADDITIONAL INFORMATION---- Estimated GFR calculated using the 2009 CKD_EPI creatinine equation. eGFR-Black/ 52(L) >=60 mL/min/BS A 09/17/2020 3:57 PM CDT DTL Comment: ----ADDITIONAL INFORMATION---- Estimated GFR calculated using the 2009 CKD_EPI creatinine equation. Calcium, Total, S 10.1 8.8 - 10.2 mg/dL 09/17/2020 3:57 PM CDT DTL Glucose, S 68(L) 70 - 140 mg/dL 09/17/2020 3:57 PM CDT DTL Protein, Total, S 5.6(L) 6.3 - 7.9 g/dL 09/17/2020 3:57 PM CDT DTL Albumin, S 3.6 3.5 - 5.0 g/dL 09/17/2020 3:57 PM CDT DTL Aspartate Aminotransferase (AST), S 63(H) 8 - 43 U/L 09/17/2020 3:57 PM CDT DTL Alkaline Phosphatase, S 170(H) 35 - 104 U/L 09/17/2020 3:57 PM CDT DTL Alanine Aminotransferase (ALT), S 89(H) 7 - 45 U/L 09/17/2020 3:57 PM CDT DTL Bilirubin, Total, S <0.2 <=1.2 mg/dL 09/17/2020 3:57 PM CDT DTL Blood (Blood, Venous) 09/17/2020 2:58 PM CDT 09/17/2020 3:21 PM CDT Sanchez Hooper M.D. LAB BLOOD ADD-ON [facility] [address] [place] [address], [place] DTL [facility] [address] [place] [address] from Last 3 Months or Most Recently Relevant to Health Maintenance Advance Directives For more information, please contact: [phone] Documents on File Type Date Recorded Patient [employer] Ass[employer] Craft Crewman Expl anation Advance Directives 11/28/2019 5:54 AM [...] First Alternate Health Care Agent Care Teams Business Assistant Relationship Specialty Start Date End Date Elsewhere, Pcp PCP - General Family Medicine 10/10/17
--- OUTSIDE RECORDS SUMMARY | 2023-09-14 14:48 | XMS_ITS | Encounter Summary ---
Author Organization [facility] Address [address] [place] [address] Care Team Providers Care Accounting Machine Mechanic Name Role Phone Elsewhere, Pcp Primary Care Provider Unavailabl e Encounter Details Date Type Department Care Team (Late st Contact Info) Description 06/09/2023 Clinical Communication Department of Dermatology in [address] [phone] Elsewhere, Pcp Social History Tobacco Use Types [...] How often do you attend chur or scientology services? 1 to 4 times per year 12/24/2021 Do you belong to any clubs o r organizations such as yazdanism groups, unions, fraternal or athletic groups, or [...] and heating? Not hard at all 01/10/2023 [facility] Occupat ional Health - Occupational Stress [...] your living situation today? I have a [facility] place to live 01/10/2023 Education [...] Office Visit Department of Dermatology in [address] [phone] Daryl Dorsey M.D. [address] [place] [phone] Discharge Disposition: Home or Self Care 11/03/2023 11:00 AM CDT Office Visit Division of Endocrinology in [place], [place] [address] [place] [phone] Tana Vazquez M.D. [address] [place] [phone] documented as of this encounter Visit Diagnoses Not on filedocumented in this encounter Care Teams Accounting Machine Mechanic Relationship Specialty Start Date End Date Elsewhere, Pcp PCP - General Family Medicine 10/10/17 documented as of this encounter
--- OUTSIDE RECORDS SUMMARY | 2023-09-14 14:48 | XMS_ITS | Referral Summary ---
Author Organization [facility] Address [address] [place] [address] Care Team Providers Care Manager Transplant Name Role Phone Elsewhere, Pcp Primary Care Provider Unavailabl e Source Comments Patient records contain information from all sites at [facility]. For routine questions regarding patient records, call [phone] during business hours, M-F 8:00 AM - 5:00 PM Central Time. Record requests for emergency care only can be directed to [phone] at any time.[facility] Allergies Active Allergy Reactions Criticality Noted Date [...] Overview: Added automatically from request for surgery [id number] Mutation Factor V Leiden Heterozygous 09/18/2013 Solitary [...] Overview: Added automatically from request for surgery [id number] Herniorrhaphy Ventral Status Post 03/14/1994 11/05/2020 Immunizations [...] week 12/24/2021 How often do you attend [facility] or oriental orthodox services? 1 to 4 times per year [...] and heating? Not hard at all 01/10/2023 [facility] of Occupat ional [facility] - Occupational Stress Questionnaire Answer Date [...] money to buy more. Never true 01/11/20 Within the past 12 months, t he [...] your living situation today? I have a [facility] place to live 01/10/2023 Education Answer Date Recorded What is the highest level of school you have completed or the highest degree you have received? Professional school degree (e.g., , DDS, DVM, RUFINO) 11/21/2018 Sex and Gender [...] CDT Office Visit Department of Dermatology in [address] [phone] Daryl Dorsey M.D. [address] [place] [phone] Discharge Disposition: Home or Self Care 11/03/2023 11:00 AM CDT Office Visit Division of Endocrinology in [place], [place] [address] [place] [phone] Tana Vazquez M.D. [address] [place] [phone] Medical Devices Implanted Type Area Edge Trimming Machine Operator Device Identifier Shelf Expiration Date Model / Serial / Lot Clp Hrzn Ti 6 Clp [facility] - [id number] Implanted:Qt y: 1 on 08/08/2020 by Blaire Marin M.D. at [facility] Hardware e.g. pins/screws /rods Abdomen [employer] [id number] 10/07/2024 / / [id number] 2 Clp Hrzn Ti 6 Clp Md Bello - [id number] Implanted:Qt y: 1 on 08/08/2020 by Blaire Marin M.D. at [facility] Hardware e.g. pins/screws /rods Abdomen [employer] [id number] 10/07/2024 / / [id number] 2 Clp Hrzn Ti 6 Clp Md Bello - [id number] Implanted:Qt y: 1 on 08/08/2020 by Blaire Marin M.D. at [facility] Hardware e.g. pins/screws /rods Abdomen [employer] [id number] 10/07/2024 / / [id number] 2 Clp Hrzn Ti 6 Clp Sm Red - [id number] Implanted:Qt y: 1 on 08/08/2020 by Blaire Marin M.D. at [facility] Hardware e.g. pins/screws /rods Abdomen [employer] [id number] 11/11/2024J200003 4 Clp Hrzn Ti 6 Clp Sm Red - [id number] Implanted:Qt y: 1 on 08/08/2020 by Blaire Marin M.D. at [facility] Hardware e.g. pins/screws /rods Abdomen [employer] [id number] 11/11/2024 / [id number] 4 Clp Hrzn Ti 6 Clp Sm Red - [id number] Implanted:Qt y: 1 on 08/08/2020 by Blaire Marin M.D. at [facility] Hardware e.g. pins/screws /rods Abdomen [employer] [id number] 11/11/2024J200003 4 Clp Hrzn Ti 6 Clp Sm Red - [id number] Implanted:Qt y: 1 on 08/08/2020 by Blaire Marin M.D. at [facility] Hardware e.g. pins/screws /rods Abdomen [employer] [id number] 11/11/2024 [id number] / / [id number] 4 Clp Hrzn Ti 6 Clp Md Bello - [id number] Implanted:Qt y: 1 on 08/08/2020 by Blaire Marin M.D. at [facility] Hardware e.g. pins/screws /rods Abdomen [employer] [id number] 10/07/2024 [id number] / / [id number] 2 Hip Implant Hip Implant Left: Hip Mesh Or Patch Mesh or Patch Abdomen Hernandez Adhn Seprafilm 5x6 - [id number] Implanted:Qt y: 1 on 07/07/2020 by Blaire Marin M.D. at [facility] Mesh or Patch N/A: Abdomen Olivarez 09/29/2022 [id number] / / [id number] Msh Prf Santosh Polyprp 6x6 - [id number] Implanted:Qt y: 1 on 07/07/2020 by Blaire Marin M.D. at [facility] Mesh or Patch N/A: Abdomen C.R.Bard 09/08/2024 [id number] / / [id number] Procedures Procedure Name Priority Date/Time Associated Diagnosis Comments COMPREHENSIVE METABOLIC PANEL, S/P Routine 09/17/2020 2:58 PM CDT Fdc Antibiotic Treatment from Last 3 Months or Most Recently Relevant to Health Maintenance Results * (ABNORMAL) Comprehensive Metabolic Panel (09/17/2020 2:58 PM CDT) [facility] [address] Potassium, S 4.8 3.6 - 5.2 mmol/L [...] CDT Sanchez Hooper M.D. LAB BLOOD ADD-ON [facility] [address] [place] [address], [place] DTL [facility] [address] [place] [address] from Last 3 Months or Most Recently Relevant to Health Maintenance Advance Directives For more information, please contact: [phone] Documents on File Type Date Recorded Patient Speech Language Assistant Expl anation Advance Directives 11/28/2019 5:54 AM [...] Name Relationship Healthcare Agent Relationship Communication Travis Horvath Reji Spouse Health Care Agent Rachele Harris Sister First Alternate Health Care Agent Care Teams Manager Transplant Relationship Specialty Start Date End Date Elsewhere, Pcp PCP - General Family Medicine 10/10/17
--- NOTE | 2023-09-14 15:00 | CRLHL7_ITS ---
For Patients: As a result of the Century Cures Act, medical imaging exams and procedure reports are released immediately into your electronic medical record. You may view this report before your referring provider. If you have questions, please contact your health care provider. DXA BONE MINERAL DENSITY STUDY Current height (in): 62. Weight (lb): 172. Menopause age: 38. Ethnicity: White. 1. Have you had a previous hip or vertebral fracture? No. 2. Have you had any fractures during your adult life which did not result from significant trauma (e.g., auto accident)? No. 3. Did either of your parents have a hip fracture? No. 4. Do you smoke? No. 5. Have you ever taken Glucocorticoids? No. 6. Do you have rheumatoid arthritis? No. 7. Do you have secondary osteoporosis? No. 8. Do you drink 3 or more alcoholic drinks per day? No. 9. Are you being treated for osteoporosis? No. 10. Have you ever taken any of the following medications: Actonel, Evista, Fosamax, Miacalcin, Reclast, Boniva, Forteo, HRT (i.e. estrogen/hormone therapy), Protelos, Prolia, Vitamin D, Calcium, other ??? please specify. Yes, Vitamin D. 11. Do you have any of the following medical conditions: Anorexia or bulimia, asthma or emphysema, end stage renal disease, hyperparathyroidism, any seizure disorders, cancer, inflammatory bowel diseases, hysterectomy, other ??? please specify. Yes, Cancer, Skin hyster 38 yr. and Hysterectomy. 12. What was your maximum height (inches)? 62. 13. Do you perform weight bearing exercise regularly? Yes. 14. Do you regularly consume dairy products? Yes. 15. Do you drink caffeinated beverages? Yes. 16. At what age did your period start? 10. 17. Are you premenopausal? No. 18. How many full term pregnancies have you had? 0. 19. Have you ever missed your period for more than 6 months in a row (not including or menopause)? No. TECHNIQUE: Bone mineral density study was performed using the [employer]. FINDINGS: The results of the study expressed as bone mineral density (BMD) are as follows: Lumbar spine L2 to L4: BMD: 1.278 g/cm2. T-score: 1.8. Z-score: 4.0. Neck Right: BMD: 0.667 g/cm2. T-score: -1.6. Z-score: 0.2. Total Right: BMD: 0.868 g/cm2. T-score: -0.6. Z-score: 0.9. Radius Left 33%: BMD: 0.570 g/cm2. T-score: -2.1. Z-score: 0.2. IMPRESSION: Osteopenia. COMPARISON: *Compared with scan of 11/21/2017, the bone mineral density has decreased by 1.7 percent at the spine and decreased by 8.1 percent at the hip. *Compared with scan of 01/29/2024, the bone mineral density has increased by 6.2 percent at the spine and decreased by 0.5 percent at the right hip. FRAX 10-year Fracture Risk Major Osteoporotic Fracture: 9.8 percent Hip Fracture: 1.5 percent Reported Risk Factors: [place] () Neck BMD=0.667, BMI=31.5. Tavon Coats M.D. Diagnostic Radiologist [email or web address] DEBRA/mike DW/Dictated by: Tavon Coats MD @ 09/14/2023 4:28:00 PM (Electronically Signed)
== END 2023-09-14 14:46 | disposition home or self-care (01) ==
LOC: RAD 14:46
PROVIDERS: PCP Internal Medicine; Visit Provider Internal Medicine
DX: M85.88 Other specified disorders of bone density and structure, other site (principal)
CPT/HCPCS: 77080

== ENCOUNTER 2024-07-17 09:58 | Outpatient (CLI) | payer MEDICARE, BC, SELFPAY ==
--- NOTE | 2024-07-17 10:15 | CRLHL7_ITS ---
For Patients: As a result of the Century Cures Act, medical imaging exams and procedure reports are released immediately into your electronic medical record. You may view this report before your referring provider. If you have questions, please contact your health care provider. INDICATION: BILATERAL SCREENING MAMMOGRAM, ASYMPTOMATIC 68 Y/O FEMALE COMPARISON: 02/16/23, 01/15/22, 11/20/20 TECHNIQUE: CC and MLO views were obtained. These mammographic images have been obtained using full-field digital technique. These mammographic images were interpreted with the benefit of computer aided detection and tomosynthesis. BREAST COMPOSITION: There are scattered areas of fibroglandular density. FINDINGS: No suspicious findings. ASSESSMENT: BI-RADS 1 Negative RECOMMENDATION: Annual screening mammogram. A lay language report of this examination will be provided to the patient. Dictated by: Tavon Coats MD @ 07/17/2024 10:58:37 (Electronically Signed)
== END 2024-07-17 09:59 | disposition home or self-care (01) ==
LOC: MAMMO 09:59
PROVIDERS: PCP Internal Medicine; Visit Provider Internal Medicine
DX: Z12.31 Encounter for screening mammogram for malignant neoplasm of breast (principal)
CPT/HCPCS: 77063; 77067

== ENCOUNTER 2024-07-19 08:21 | Outpatient (CLI) | payer MEDICARE, BC, SELFPAY | END 2024-07-19 08:22 | disposition home or self-care (01) | LOC: NFLDREF 07-29 18:23 | PROVIDERS: PCP Internal Medicine; Referring Provider Internal Medicine; Visit Provider Internal Medicine | DX: M85.80 Other specified disorders of bone density and structure, unspecified site (principal); E53.8 Deficiency of other specified B group vitamins; E88.810 Metabolic syndrome; E78.5 Hyperlipidemia, unspecified | CPT/HCPCS: 80053; 80061; 82306; 82607 ==

== ENCOUNTER 2024-12-11 14:45 | Outpatient (RCR) | payer MEDICARE, BC, SELFPAY ==
--- NOTE | 2024-11-22 09:36 | PT.OPE ---
PT [facility] Eval PT [facility] Outpatient Eval Start: 11/22/24 08:06 Freq: Status: Active Protocol: Document 11/22/24 08:07 LSL (Rec: 11/22/24 09:25 LSL [id number]) E-signed By Valarie Tinoco PT Physical Therapy Outpatient Evaluation Insurance Information Recert Due Date 02/20/25 Insurance Name Medicare B,Blue Cross/Blue Shield Medical Diagnosis right foot pain Treating Diagnosis pain, inflammation, impaired gait, weakness Referring MD Cash Subjective Subjective Pt. began having pain in the lateral aspect of her right foot. Because of the pain I walk funny and then my knee hurts. I have a trip to [place] planned on . Pain is the worst in the push off phase of gait, so for 2 weeks I have been walking flat footed. I think what started this was a pair of shoes I bought to wear to [place]. I wore them an hour a day to break them in and then wore them on a shopping trip and the pain began on the shopping trip and progressed. Pain is generally an ache but in the provocative position it is sharp and I am uncertain as to whether the leg is going to hold me. This morning is the first time I woke up and felt okay, but after being up for a couple hours I have started to feel the aching. PMH - R knee pain and L ARTEM. Pain Comments 09/20 worst Date of Last 11/20/24 Physician Visit Current Work Status Retired Precautions Weight Bearing Full Weight Bearing Status Therapy Limitations/ Not Limited Systems Review Objective Range of Motion WFL with pain in lateral foot Strength R ankle inversion and eversion 4+/5 and all others B 5/ 5, abductor minimi 3/5 Swelling Pt. has swelling through the tarsal area superiorly. Palpation point tender at peroneus brevis insertion at 5th metatarsal Balance & Gait B 20 seconds with reproduction of anterior olson and knee pain Assessment Assessment/ Pt. is a 69 y/o female who presents with right foot Impression pain after trying to break in a new pair of shoes. She has swelling throughout the tarsal area dorsally and point tenderness and pain with peroneal palpation and contraction. Her altered gait is irritating her R knee, which has been a chronic issue for her. Treatment will work to decrease inflammation, add support through footware and ADs, and gradually resume intrinsic foot strengthening. She will benefit from patient education, therex, manual therapy and iontophoresis. She is aware her insurance may not cover iontophoresis and is willing to cover the cost. Primary Functional walking, stairs Limitations Plan of Care Rehabilitation Good Potential Physical Therapy SHORT TERM GOALS: (3 weeks) Goals 1. Pt. able to ambulate in shoes with for 15' with pain less than 3/10. 2. Pt. able to correctly utilize SPC. 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 Pt. able to ambulate as needed with pain less than 3 /10 for her trip to [place]. 2. Pt. able to complete 20 heel raises or R foot to allow improved gait mechanics and to take stress off her knee. 3. Pt. to have 5/5 R ankle strength. Coordination/ Referral Source Communication With Treatment Plan/ Iontophoresis,Joint Mobilization,Manual Therapy, Direct Interventions Neuromuscular Re-ed,Therapeutic Exercises Frequency/Duration 2x/week 3 weeks Patient Will Be Skills Plateau,Independent w/HEP,Independently Discharged From Progressing Therapy Evaluation Billing Untimed Code 40 Treatment Minutes Complexity Low Certification Information Initial 11/22/24 Certification Date Ending Certification 02/20/25 Date Provider Signature Yes Required Provider Signature POC & Medical Necessity Shows Agreement With Physician NPI Number Write NPI# Here Physician Comment/ : Change Physician Signature Please Sign/Date Here & Date Requested
== END 2025-01-14 14:45 | disposition home or self-care (01) ==
PROVIDERS: PCP Internal Medicine; Visit Provider Internal Medicine
DX: M79.671 Pain in right foot (principal); Z51.89 Encounter for other specified aftercare
CPT/HCPCS: 97033; 97140; 97161

== ENCOUNTER 2024-12-17 08:25 | Outpatient (CLI) | payer MEDICARE, BC, SELFPAY | END 2024-12-17 08:26 | disposition home or self-care (01) | LOC: NFLDREF 12-18 13:52 | PROVIDERS: PCP Internal Medicine; Referring Provider Internal Medicine; Visit Provider Internal Medicine | DX: E78.5 Hyperlipidemia, unspecified (principal) | CPT/HCPCS: 80061 ==

== ENCOUNTER 2025-01-21 14:48 | Emergency (ER) | payer MEDICARE, BC, SELFPAY ==
--- OUTSIDE RECORDS SUMMARY | 2024-12-17 08:15 | XMS_ITS | Encounter Summary ---
Author Organization [facility] Address [address] [place] [id number] Care Team Providers Care Clinical Esthetician Name Role Phone Elsewhere, Pcp Primary Care Provider Unavailabl e Reason for Visit * Reason Onset Date Comments Pre-visit Intake 12/17/2024 * Appointment Request (Routine) - Authorized Specialty Diagnoses / Procedures Referred By Contac t Referred To Contact Sports Medicine Referral ID Status Reason Start Date Expiration Date V isits Requested Visits Authorized [id number] Authorized 11/21/2024 02/21/2026 1 1 Encounter Details Date Type Department Care Team (Latest Contact Info) Description 12/17/2024 9:15 AM CDT Clinical Communication Virtual Review in [place], [place] [address] [place] [address] Pre-visit Intake Social History Tobacco Use Types Packs/Day Years Used Date Smoking Tobacco: Never Passive Smoke Exposure: Past Smokeless Tobacco: Never Tobacco Cessation:Counseling Given: Not [...] by your partner or ex-partner? No 12/24/2021 Hunger Vital Sign Answer Date Recorded Within [...] things needed for daily living? No 01/10/2023 Depression Answer Date Recor ded PHQ-9 Total Score (max 27) 8 03/30 Housing Stability Answer Date Recorded What is your living situation today? I have a [facility] place to live 01/10/2023 Education Answer Date Recorded What is the highest level of school you have completed or the highest degree you have received? 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 [address] [place] [address] [place] [address] documented as of this encounter Visit Diagnoses Not on filedocumented in this encounter Additional Health Concerns Assessment Noted Time PHQ-9 Depression Total Score: 8 03/30/19 25 9:20 AM MAT ROLLER documented as of this encounter Care Teams Clinical Esthetician Relationship Specialty Start Date End Date Elsewhere, Pcp PCP - General Family Medicine 10/10/17 documented as of this encounter
--- OUTSIDE RECORDS SUMMARY | 2024-12-18 09:23 | XMS_ITS | Encounter Summary ---
Author Organization [facility] Address [address] [place] [address] Care Team Providers Care Child Care Center Administrator Name Role Phone Elsewhere, Pcp Primary Care Provider Unavailabl e Reason for Referral * Outpatient (Routine) - Closed Specialty Diagnoses / Procedures Referred By Contac t Referred To Contact Diagnoses Pain Knee Right Procedures DX Knee Right 4+ Views Beata Yadav M.D. [address] [address] Phone: tel: fax: [facility] Referral ID Status Reason Start Date Expiration Date Visits Re quested Visits Authorized [id number] Closed 11/21/2024 02/21/2026 1 1 Reason for Visit * Outpatient (Routine) - Closed Specialty Diagnoses / Procedures Referred By Contac t Referred To Contact Diagnoses Pain Knee Right Procedures DX Knee Right 4+ Views Beata Yadav M.D. [address] [employer] [address] [address] Phone: tel: fax: [facility] Referral ID Status Reason Start Date Expiration Date Visits Re quested Visits Authorized [id number] Closed 11/21/2024 02/21/2026 1 1 Encounter Details Date Type Department Care Team (Latest Contact Info) Description 12/18/2024 10:23 AM CDT - 12/18/2024 11:59 PM CDT Hospital Encounter Department of Radiology in [place], [place] [address] [place] [address] Beata Yadav M.D. [address] [place] [address] Pain Knee Right Discharge Disposition: Home or Self Care Social History Tobacco Use Types Packs/Day Years Used Date Smoking Tobacco: Never Passive Smoke Exposure: Past Smokeless Tobacco: Never Alcohol Use Standard Drinks/Week [...] your living situation today? I have a [facility] place to live 01/10/2023 Education Answer Date Recorded What is the highest level of school you have completed or the highest degree you have received? 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 12/11/2020 atorvastatin (LIPITOR) 40 mg tablet Take 40 mg by mouth at bedtime. 3 10/03/2017 buPROPion XL (WELLBUTRIN XL) 300 mg 24 hr tablet Take 300 mg by mouth daily. 3 10/30/2018 chlorpheniramine /dextromethorp (CORICIDIN HBP COUGH AND COLD ORAL) Take 1 tablet by mouth daily as needed (allergies). If fexofenadine does not relieve allergy symptoms. cholecalciferol (Vitamin D3) 125 mcg (5,000 Unit) tablet Take 2,500 Units by mouth daily. 0.5 tablet daily 04/07/2021 clobetasoL (Temovate) 0.05 % cream Apply 1 Application topically as needed. Apply to skin. clotrimazole (Lotrimin) 1 % cream Apply 1 Application topically as needed. Apply to feet. cyanocobalamin (Vitamin B-12) 1,000 mcg tablet Take 1,000 mcg by mouth daily. diphenhydrAMINE (BenadryL) 25 mg tablet Take 25 mg by mouth at bedtime as needed for sleep. Eliquis 2.5 mg tablet Take 2.5 mg by mouth 2 (two) times a day. 03/17/2021 fexofenadine (Kristie) 180 mg tablet Take 180 mg by mouth daily. FLUoxetine (PROzac) 20 mg capsule Take 20 mg by mouth daily. 10/12/2022 hydrocortisone (HYTONE) 2.5 % cream Apply 1 Application topically as needed for irritation. 10/09/2022 loratadine (CLARITIN) 10 mg tablet Take 10 mg by mouth daily. metFORMIN XR (Glucophage-XR) 500 mg 24 hr tabletIndication s:PreDiabetes TAKE 2 TABLETS BY MOUTH TWICE A DAY WITH FOOD 360 tablet 3 02/21/2024 multivit with calcium,iron,min (MULTIPLE VITAMIN, WOMENS ORAL) Take 2 tablets by mouth daily. Vitamin A, C , E, 2 gummies daily phentermine-topi ramate (Qsymia) 15-92 mg capsule, ER multiphase 24 hr ER capsuleIndicatio ns:Obesity Body Mass Index 30-39.9 Adult Take 1 capsule by mouth daily before morning meal. 90 capsule 1 11/19/2024 documented as of this encounter Plan of Treatment Upcoming Encounters Date Type Department Care Team (Latest Contact Info) Description 02/11/2025 8:30 AM FABRIC DESIGNER Clinical Communication Virtual Review in [address] [phone] 02/12/2025 2:40 PM FABRIC DESIGNER Comprehensive Visit Department of Dermatology in [address] [phone] Daryl Dorsey M.D. [address] [place] [phone] documented as of this encounter Procedures Procedure Name Priority Date/Time Associated Diagnosis Comments DX KNEE RIGHT 4+ VIEWS RAD - Routine (most inpatients and all outpatients) 12/18/2024 10:42 AM CDT Pain Knee Right documented in this encounter Results * DX Knee Right 4+ Views (12/18/2024 10:42 AM CDT) Anatomical Region Laterality Modality Lower Extremity, Knee, Muscu loskeletal RST LOS, Musculoskeletal ARZ LOS, Muskuloskeletal FLA LOS Right Digit al Radiography Impressions 12/18/2024 10:50 AM CDT Tricompartmental degenerative arthritis of the right knee with advanced medial compartment narrowing. Moderate-sized knee joint effusion. Approximately 1 cm calcified osteochondral body posteriorly. Patellar and tibial tuberosity enthesophytes. Narrative 12/18/2024 10:50 AM CDT EXAM: DX KNEE RIGHT 4+ VIEWS Procedure Note Jahaira Jin M.D. - 12/18/2024 EXAM: DX KNEE RIGHT 4+ VIEWS IMPRESSION: Tricompartmental degenerative arthritis of the right knee with advancedmedial compartment narrowing. Moderate-sized knee joint effusion.Approximately 1 cm calcified osteochondral body posteriorly. Patellar andtibial tuberosity enthesophytes. us [facility] PROC EDURES Final Result documented in this encounter Visit Diagnoses Diagnosis Pain Knee Right documented in this encounter Additional Health Concerns Assessment Noted Time PHQ-9 Depression Total Score: 8 03/30/19 25 9:20 AM FABRIC DESIGNER documented as of this encounter Care Teams Child Care Center Administrator Relationship Specialty Start Date End Date Elsewhere, Pcp PCP - General Family Medicine 10/10/17 documented as of this encounter
--- OUTSIDE RECORDS SUMMARY | 2024-12-18 10:00 | XMS_ITS | Encounter Summary ---
Author Organization [facility] Address [address] [place] [address] Care Team Providers Care Licensed Nurse Practitioner Name Role Phone Elsewhere, Pcp Primary Care Provider Unavailabl e Reason for Referral * Physical Therapy (Routine) - Authorized Specialty Diagnoses / Procedures Referred By Minna limon Referred To Contact Diagnoses Primary Osteoarthritis Knee Right Gena Abbott D.O. [address] [place] [address] Phone: tel: fax: Referral ID Status Reason Start Date Expiration Date V isits Requested Visits Authorized [id number] Authorized Other 12/18/2024 06/19/2026 99 99 * Outpatient (Routine) - Closed Specialty Diagnoses / Procedures Referred By Minna limon Referred To Contact Diagnoses Primary Osteoarthritis Knee Right Procedures SPM US-Guided aspiration/injection Gena Abbott D.O. [address] [place] [address] Phone: tel: fax: [facility] Referral ID Status Reason Start Date Expiration Date Visits Re quested Visits Authorized [id number] Closed 12/18/2024 03/20/2026 1 1 Reason for Visit * Appointment Request (Routine) - Closed Specialty Diagnoses / Procedures Referred By Minna t Referred To Contact Sports Medicine Diagnoses Pain Knee Right Referral ID Status Reason Start Date Expiration Date Visits Re quested Visits Authorized [id number] Closed 11/20/2024 02/20/2026 1 1 Encounter Details Date Type Department Care Team (Latest Contact Info) Description 12/18/2024 11:00 AM CDT Comprehensive Visit Department of Sports Medicine in [place], [place] [address] [place] [address] Beata Yadav M.D. [address] [facility] [address] [place] [address] Primary Osteoarthritis Knee Right (Primary Dx) Social History Tobacco Use Types Packs/Day Years [...] your living situation today? I [place] a [place] [address] to live 01/10/2023 Education Answer Date Recorded What is the highest level of school you have completed or the highest degree you have received? 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 - 12/18/2024 11:00 AM CDT Instructions for Follow-Up Care Diagnosis: Right knee pain due to arthritis Instructions for follow up care: Bracing/Orthotics: Patellar stabilizing knee sleeve, travel cane or walking stick (everyArtking poles) Physical Therapy: Schedule at a location of your choice. US guided injections: right knee corticosteroid injection on at 11:30 AM Follow up: for right knee cortisone injection If not improved, recommend: other injections including gel or PRP For any further questions or concerns, please contact [facility] Department of Orthopedics and Sports Medicine via your patient portal or call [phone]. What is PRP? Platelet rich plasma (PRP) is a blood product that can be used in tendon, ligament, and joint disorders to improve pain and potentially promote tissue healing and regeneration. PRP is produced from your own blood using a process called platelet enrichment. Platelets are naturally occurring cells in your blood stream that contain a variety of signaling cells and growth factors that promote tissue healing and regeneration. The platelet enrichment process allows us to extract platelets from your blood and concentrate them at levels higher than baseline blood levels. This concentrated platelet ???soup?? can then be delivered to your injured/degenerated tissues to promotepain relief and healing. The PRP Procedure On the day of your appointment, a sample of your blood will be obtained from your arm using standard blood draw (ie, venipuncture) techniques. A small piece of gauze will be placed over the venipuncture site and wrapped with a gauze wrap. The gauze should be kept in place for at least 30 minutes, after which it can be removed and discarded. The blood will then be processed on site to create the PRP using the platelet enrichment process. The process usually takes about 20 minutes. While the PRP is being created, the area of your injury will be visualized using ultrasound and prepared to accept the PRP. Using ultrasound guidance, we will direct a needle to the affected area. For tendon/ligament conditions, the needle may be used to break up scar tissue and adhesions and stimulate a healing response (called a ???tenotomy?? ). Following this, either the same needle or a second needle will be used to deliver the PRP directly to the treated area using ultrasound guidance. For joint conditions such as arthritis, the PRP will be injected into the joint in a similar mannerto other joint injections (e.g., cortisone). After the PRP procedure you may use ice as necessary over the injection site up to 20 minutes, several times per day and you can also take Acetaminophen (Tylenol???) . Before Your PRP Procedure Please notify the Regenerative Medicine Team if you are taking blood thinners, have bleeding tendencies, or have had difficulty with blood draws in the past. Avoid anti-inflammatory products such as Aspirin, ibuprofen (Advil???, Motrin???), and naproxen (Aleve???, Naprosyn???) 1 week prior to and 1-4 weeks post-procedure (depending on treatment site) as they may affect platelet function. Acetaminophen (Tylenol???) is ok if needed for pain. Consume an adequate amount of fluids (preferably water - at least 0.5 oz per lb of bodyweight) at least 24-48 hours prior to your procedure. There is no need to eliminate coffee/tea the day of your procedure, but avoid drinking these beverages in excess. Also, fasting is not necessary. It is recommended to consume normal meals prior to your procedure. Payment Although some PRP procedures are covered by insurance, in many cases these procedures may not be covered. If you contact your insurance company before your procedure to determine whether PRP is a covered benefit for your policy, the PRP billing (CPT) code is 0232T. [facility] does not perform any prior authorizations for PRP procedures. Regardless of your insurance coverage, a pre- service deposit is required prior to the procedure by way of major credit card. Post procedure claims will be filed with insurance companies for the procedure on behalf of the patient. If insurance pays a portion of the procedure, any overpayment resulting from the payment and pre-service deposit will be refunded to the patient, unless there is an outstanding balance on your account. If that is the case, the refunded portion will be applied to this balance. documented in this encounter Consult Notes * Beata Yadav M.D. - 12/18/2024 11:00 AM CDT REFERRAL SOURCE: Self-referred CHIEF COMPLAINT: right knee pain Assisted by: Dr. Gena Abbott [facility] Current Outpatient Medications: acetaminophen (TYLENOL) 500 mg capsule, Take 2 capsules (1,000 mg total) by mouth every 6 (six) hours as needed for pain., Disp: , Rfl: atorvastatin (LIPITOR) 40 mg tablet, Take 40 mg by mouth at bedtime. (Patient not taking: Reported on 12/17/2024), Disp: , Rfl: 3 buPROPion XL (WELLBUTRIN XL) 300 mg 24 hr tablet, Take 300 mg by mouth daily., Disp: , Rfl: 3 chlorpheniramine/dextromethorp (CORICIDIN HBP COUGH AND COLD ORAL), Take 1 tablet by mouth daily asneeded (allergies). If fexofenadine does not relieve allergy symptoms. , Disp: , Rfl: cholecalciferol (Vitamin D3) 125 mcg (5,000 Unit) tablet, Take 2,500 Units by mouth daily. 0.5 tablet daily, Disp: , Rfl: clobetasoL (Temovate) 0.05 % cream, Apply 1 Application topically as needed. Apply to skin., Disp: , Rfl: clotrimazole (Lotrimin) 1 % cream, Apply 1 Application topically as needed. Apply to feet., Disp: ,Rfl: cyanocobalamin (Vitamin B-12) 1,000 mcg tablet, Take 1,000 mcg by mouth daily., Disp: , Rfl: diphenhydrAMINE (BenadryL) 25 mg tablet, Take 25 mg by mouth at bedtime as needed for sleep., Disp:, Rfl: Eliquis 2.5 mg tablet, Take 2.5 mg by mouth 2 (two) times a day., Disp: , Rfl: fexofenadine (Kristie) 180 mg tablet, Take 180 mg by mouth daily., Disp: , Rfl: FLUoxetine (PROzac) 20 mg capsule, Take 20 mg by mouth daily., Disp: , Rfl: hydrocortisone (HYTONE) 2.5 % cream, Apply 1 Application topically as needed for irritation., Disp:, Rfl: loratadine (CLARITIN) 10 mg tablet, Take 10 mg by mouth daily. (Patient not taking: Reported on 12/17/2024), Disp: , Rfl: metFORMIN XR (Glucophage-XR) 500 mg 24 hr tablet, TAKE 2 TABLETS BY MOUTH TWICE A DAY WITH FOOD, Disp: 360 tablet, Rfl: 3 multivit with calcium,iron,min (MULTIPLE VITAMIN, WOMENS ORAL), Take 2 tablets by mouth daily. Vitamin A, C , E, 2 gummies daily, Disp: , Rfl: phentermine-topiramate (Qsymia) 15-92 mg capsule, ER multiphase 24 hr ER capsule, Take 1 capsule bymouth daily before morning meal., Disp: 90 capsule, Rfl: 1 ALLERGIES Allergies Allergen Reactions Ketamine Hives with other symptoms including blisters, Itching and Rash Pollen Extracts Headache Sneezing Ragweed Pollen Headache Tree And Shrub Pollen Headache Adhesive Itching, Rash and Other (see comments) PAST MEDICAL HISTORY Medical History[1] PAST SURGICAL HISTORY Surgical History[2] SOCIAL HISTORY Social History Socioeconomic History Marital status: Spouse name: Not on file Number of children: Not on file Years of education: Not on file Highest education level: Professional school degree (e.g., , [employer], DVM, RUFINO) Occupational History 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 Tobacco Use Smoking status: Never Passive exposure: Past Smokeless tobacco: Never Vaping Use Vaping status: never used Substance and Sexual Activity Alcohol use: Yes Alcohol/week: 7.0 standard drinks of alcohol Types: 7 Glasses of wine per week Drug use: Never Sexual activity: Not Currently Partners: Female control/protection: Pill Other Topics Concern Not on file Social History Narrative Not on file Social Drivers of Health Food Insecurity: No Food Insecurity (01/10/2023) Hunger Vital Sign Worried About Running Out of Food in the Last Year: Never true Ran Out of Food in the Last Year: Never true Transportation Needs: No Transportation Needs (01/10/2023) PRAPARE - Transportation Lack of Transportation (Medical): No Lack of Transportation (Non-Medical): No Intimate Partner Violence: Not At Risk (12/24/2021) Humiliation, Afraid, Rape, and Kick questionnaire Fear of Current or Ex-Partner: No Emotionally Abused: No Physically Abused: No Sexually Abused: No Housing Stability: Low Risk (01/10/2023) Housing Stability Housing: Living Situation: I have a steady place to live FAMILY HISTORY Family History[3] REVIEW OF SYMPTOMS Except for those mentioned in the history of present illness and below, a complete review of systems is negative. REVIEW OF SYSTEMS IMAGING STUDIES: X-Ray of the right knee, dated 12/18/24, revealed Tricompartmental degenerative arthritis of the right knee with advanced medial compartment narrowing. Moderate-sized knee joint effusion. Approximately 1 cm calcified osteochondral body posteriorly. Patellar and tibial tuberosity enthesophytes. I personally reviewed these images and agree with the radiology report and shared the findings with the patient. IMPRESSION #1 Right knee pain, secondary to degenerative changes of the medial and patellofemoral compartments I personally interviewed the patient and performed hilliard elements of the physical exam. I reviewed and discussed the history and management plan verbally with the patient and with Dr. Abbott. Please see Dr. Abbott's note for complete details. Mrs. Mendoza is a very pleasant 69 y.o. female who presents with a chief complaint of right knee pain. She has had knee pain for multiple years which worsened recently after a trip to [place] after climbing a large set of stairs. She localizes the predominance of her pain to the anterior aspect of the knee. She has undergone previous palpation guided corticosteroid injections which have helped butonly short term. She has participated in previous physical therapy and currently works with a personal financial counselor and does Pilates. She notes intermittent swelling especially after higher impact activity. She also notes a significant decline in her walking speed. On exam, she has full range of motion, a mild effusion, and tenderness to palpation over the medial joint line and patellar facets. Ligamentous and meniscal testing were negative. X-ray imaging reveals degenerative changes of the medial and patellofemoral compartments, worse in the medial compartment. However, I suspect that she is moresymptomatic from the degenerative changes of the patellofemoral compartment. We discussed multiple management strategies. At this time we will resume formal physical therapy focusing especially on quadriceps and hip abductor/external rotator strengthening. We will trial brace to improve compression, stability and proprioceptive feedback to the quads. We discussed injection options including corticosteroid, viscosupplementation, and PRP. Given an upcoming trip she would like to proceed with an ultrasound-guided right knee corticosteroid injection. When her pain recurs, we discussed longer termmanagement strategies such as viscosupplementation and PRP. At this time she would be most interested in considering an ultrasound-guided right knee viscosupplementation injection. If this did not offer long-term pain relief she would be interested in considering PRP. Lastly, we did discuss the role of surgical intervention but she would like to put off a total knee arthroplasty for as long as possible. She will plan on following up in the near future for the corticosteroid injection. The patient was counseled to remain active, but avoid activities that worsen symptoms. The patient was in agreement with this plan. All questions were answered to the best of my ability. PATIENT EDUCATION: Education was discussed at today's appointment. A learning needs assessment was performed. Primary learner: Love Mendoza Barriers to learning: None Preferred language: Jamaican Learning preferences include: Seeing and doing. Discussed: Diagnosis and treatment plan. Demonstrated: Understanding of material discussed. Patient education materials given: After visit summary. Learner response: Learner demonstrated understanding. [1] Past Medical History: Diagnosis Date Anemia 2016 Anesthesia Complication Personal History 2020 Anxiety Generalized Disorder 2011 no Blood Transfusion No Diagnosis 2004 Cataract 2017 Defect Coagulation (HCC) 1999 Depressive Disorder 2022 no Dermatitis 2023 Dyslipidemia NOS 2024 Eczema 2012 Gallbladder Disorder 1994 Gastroesophageal Reflux Disease NOS 2006 Hernia Ventral 06/02/2020 Added automatically from request for surgery [id number] Herniorrhaphy Ventral Status Post 1994 Irritable Bowel Syndrome, Unspecified 1994 Malignant Neoplasm Of Skin Basal Cell Carcinoma Malignant Neoplasm Of Skin Squamous Cell Carcinoma Nodule Thyroid 2020 Obesity Body Mass Index 30-39.9 Adult 10/22/2019 Osteopenia 2019 Other Specified Health Status 1998 Fibroid tumor/hysterectomy Personal History Of Other Venous Thrombosis And Embolism 1996 Polyp Colon 1998 Renal Disease 2020 Seroma Infected Postoperative Initial 07/27/2020 [2] Past Surgical History: Procedure Laterality Date EXPLORATION ABDOMINAL N/A 08/01/2020 Procedure: EXPLORATION ABDOMINAL WALL SEROMA, DEBRIDEMENT, IRRIGATION, EXCISION SEROMA CAPSULE, WOUND VAC PLACEMENT,; Surgeon: Blaire Marin M.D.; Location: [facility] EXPLORATION ABDOMINAL WITH IRRIGATION - DEBRIDEMENT AND DRESSING CHANGE Midline 08/06/2020 Procedure: EXPLORATION ABDOMINAL WITH IRRIGATION, DEBRIDEMENT, wound vac exchange.; Surgeon: Blaire Marin M.D.; Location: [facility] EXPLORATION ABDOMINAL WITH IRRIGATION - DEBRIDEMENT AND DRESSING CHANGE Midline 08/08/2020 Procedure: EXPLORATION ABDOMINAL WITH IRRIGATION, DEBRIDEMENT, DRESSING CHANGE, Skin closure over drains.; Surgeon: Blaire Marin M.D.; Location: [facility] GALLBLADDER SURGERY 1998 HERNIA REPAIR Incisional HYSTERECTOMY 1998 JOINT REPLACEMENT 2015 LAPAROSCOPIC DANUTA FUNDOPLICATION N/A 11/28/2019 Procedure: LAPAROSCOPIC CONVERTED TO OPEN DANUTA FUNDOPLICATION.; Surgeon: Rossana Ross M.D.; Location: [facility] MOHS SURGERY PARATHYROIDECTOMY - EXPLORATION CENTRAL NECK N/A 12/11/2020 Procedure: PARATHYROIDECTOMY, EXPLORATION CENTRAL NECK, INTRAOPERATIVE PARATHYROID HORMONE ASSAY MONITORING.; Surgeon: Jessica Carvajal M.D.; Location: [facility] REPAIR HERNIA VENTRAL WITH MESH N/A 07/07/2020 Procedure: OPEN REPAIR HERNIA VENTRAL WITH MESH, mesh explantation, retrorectus incisional hernia repair with mesh; Surgeon: Blaire Marin M.D.; Location: [facility] SINUS SURGERY 2015 Uncontrollable nose bleed SUPRACERVICAL HYSTERECTOMY 1996 TOTAL HIP ARTHROPLASTY 2018 WOUND EXPLORATION Midline 08/04/2020 Procedure: WOUND IRRIGATION AND WOUND VAC EXCHANGE; Surgeon: Blaire Marin M.D.; Location: [facility] WOUND EXPLORATION N/A 08/08/2020 Procedure: EXPLORATION WOUND, midline.; Surgeon: Jose Núñez M.D., D.D.S.; Location: [facility] [3] Family History Problem Relation Name Age of Onset Melanoma Paternal Grandfather Grandpa Reji Cause of in mid 80???s Basal cell carcinoma Sister Rachele Psoriasis Sister Rachele Skin cancer Sister Rachele Colon polyps Sister Rachele Clotting/ bleeding disorder Sister Rachele Ovarian cancer Sister Rachele Basal cell carcinoma Brother Zac Skin cancer Brother Zac Hypertension Brother Zac Obesity Brother Zac Colon polyps Brother Zac Colon cancer Paternal Grandmother Paternal grandmother Surgery in mid 50???s. Lived a long time after Stroke Paternal Grandmother Paternal grandmother Dementia Paternal Grandmother Paternal grandmother Stroke Father Reji Transient ischemic attack Father Reji Hypertension Father Reji Kidney disease Father Reji Dementia Father Reji Tuberculosis Father Reji Clotting/ bleeding disorder Father Reji Hyperlipidemia (high cholesterol) Sister Christy Kidney disease Sister Christy Colon polyps Sister Christy Clotting/ bleeding disorder Sister Christy Obesity Sister Christy Osteoporosis Sister Christy Arthritis Sister Christy Clotting/ bleeding disorder Mother Sheeba * Gena Abbott D.O. - 12/18/2024 11:00 AM CDT REFERRAL SOURCE: No ref. provider found CHIEF COMPLAINT: right knee pain HISTORY OF PRESENT ILLNESS History of Present Illness Mrs. Love Mendoza is a 69 year old female with history of Factor V Leiden who presents withright knee pain most prominently at the anterior knee however it can also be diffusely around the knee or at the posterior knee. She has had knee pain for years, however it flared when she was compensating with her right leg in 2017 after a left hip arthroplasty, and again in 2022 after a trip to [place] with uneven ground and many steps. Following this, she engaged in physical therapy and received a cortisone injection, which did not provide halfway relief. She has been working with a personal financial counselor to improve her strength. She endorses knee swelling. Recent increased activity levels and weig ht loss have improved her overall health, but the knee pain remains a limiting factor. She experiences occasional buckling of the knee, particularly when descending stairs, necessitating the use of ahandrail. In the past month, she experienced additional pain due to a strained ligament in her foot, which affected her gait and exacerbated her knee pain. She takes Tylenol for pain. She has tried aknee sleeve in the past however it did not fit her correctly. She wants to avoid surgery due to past poor healing experiences, including multiple hernia operations with complications. 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 Tobacco Use Smoking status: Never Passive exposure: Past Smokeless tobacco: Never Vaping Use Vaping status: never used Substance and Sexual Activity Alcohol use: Yes Alcohol/week: 7.0 standard drinks of alcohol Types: 7 Glasses of wine per week Drug use: Never Sexual activity: Defer Other Topics Concern Not on file Social History Narrative Not on file Social Drivers of Health Food Insecurity: No Food Insecurity (01/10/2023) Hunger Vital Sign Worried About Running Out of Food in the Last Year: Never true Ran Out of Food in the Last Year: Never true Transportation Needs: No Transportation Needs (01/10/2023) PRAPARE - Transportation Lack of Transportation (Medical): No Lack of Transportation (Non-Medical): No Intimate Partner Violence: Not At Risk (12/24/2021) Humiliation, Afraid, Rape, and Kick questionnaire Fear of Current or Ex-Partner: No Emotionally Abused: No Physically Abused: No Sexually Abused: No Housing Stability: Low Risk (01/10/2023) Housing Stability Housing: Living Situation: I have a steady place to live FAMILY HISTORY Family History[5] REVIEW OF SYSTEMS Except for those mentioned in the history of present illness, and below, a complete review of systems is negative. REVIEW OF SYSTEMS VITALS There were no vitals filed for this visit. PHYSICAL EXAMINATION GENERAL: Awake, alert, and oriented, no apparent distress, pleasant, and cooperative PSYC: Mood is euthymic, affect is congruent EAR, NOSE, THROAT: Normocephalic, atraumatic, moist membranes, anicteric sclera LUNG: Nonlabored breathing HEART: No clubbing or cyanosis SKIN: No increased erythema, warmth, rashes, or concerning skin lesions MUSCULOSKELETAL: Examination of the right knee: Range of motion from 0 with pain at posterior knee to 110 degrees with pain at the anterior knee. Mild to moderate effusion. No patellar apprehension. Tenderness to palpation of the medial and lateral joint lines, and patellar facets. Varus and valgusstress test are negative. Kaya's negative. Posterior drawer is negative. Nestor's negative. IMAGING STUDIES: X-Ray of the right knee, dated 12/18/24, revealed IMPRESSION: Tricompartmental degenerative arthritis of the right knee with advanced medial compartment narrowing. Moderate-sized knee joint effusion. Approximately 1 cm calcified osteochondral body posteriorly. Patellar and tibial tuberosity enthesophytes.. I personally reviewed these images and agree with the radiology report and shared the findings with the patient. IMPRESSION #1 Right knee pain in the setting of degenerative joint disease, largely from her patellofemoral compartment with a component of medial compartment as well PLAN The following was discussed with the patient: Mrs. Mendoza is a very pleasant 69 y.o. female who presents with a chief complaint of right knee pain due to the above. She will begin with physical therapy to focus on strengthening and stability of the lower extremities. She also tried a patellar stabilizing knee sleeve today, which fit her well, so she will wear that for physical activity going forward. We also discussed with her upcoming trip to friends that she can trial a travel cane or walking sticks. Given that she leaves in 1 week forher trip, we decided to pursue an ultrasound- guided right knee corticosteroid injection. In the future we discussed considering a viscosupplementation or PRP injection into the knee. She will follow up in 2 days for the cortisone injection. The patient was counseled to remain active, but avoid activities that worsen symptoms. The patient was in agreement with this plan. All questions were answered to the best of my ability. PATIENT EDUCATION: Education was discussed at today's appointment. A learning needs assessment was performed. Primary learner: Love Mendoza Barriers to learning: None Preferred language: Jamaican Learning preferences include: Seeing and doing. Discussed: Diagnosis and treatment plan. Demonstrated: Understanding of material discussed. Patient education materials given: After visit summary and Regenerative medicine patient information pamphlet. Learner response: Learner demonstrated understanding. The patient was seen and evaluated with the oracle hrms consultant. Gena Abbott DO Sports Medicine Fellow, PGY-5 [1] Current Outpatient Medications: acetaminophen (TYLENOL) 500 mg capsule, Take 2 capsules (1,000 mg total) by mouth every 6 (six) hours as needed for pain., Disp: , Rfl: atorvastatin (LIPITOR) 40 mg tablet, Take 40 mg by mouth at bedtime. (Patient not taking: Reported on 12/17/2024), Disp: , Rfl: 3 buPROPion XL (WELLBUTRIN XL) 300 mg 24 hr tablet, Take 300 mg by mouth daily., Disp: , Rfl: 3 chlorpheniramine/dextromethorp (CORICIDIN HBP COUGH AND COLD ORAL), Take 1 tablet by mouth daily asneeded (allergies). If fexofenadine does not relieve allergy symptoms. , Disp: , Rfl: cholecalciferol (Vitamin D3) 125 mcg (5,000 Unit) tablet, Take 2,500 Units by mouth daily. 0.5 tablet daily, Disp: , Rfl: clobetasoL (Temovate) 0.05 % cream, Apply 1 Application topically as needed. Apply to skin., Disp: , Rfl: clotrimazole (Lotrimin) 1 % cream, Apply 1 Application topically as needed. Apply to feet., Disp: ,Rfl: cyanocobalamin (Vitamin B-12) 1,000 mcg tablet, Take 1,000 mcg by mouth daily., Disp: , Rfl: diphenhydrAMINE (BenadryL) 25 mg tablet, Take 25 mg by mouth at bedtime as needed for sleep., Disp:, Rfl: Eliquis 2.5 mg tablet, Take 2.5 mg by mouth 2 (two) times a day., Disp: , Rfl: fexofenadine (Kristie) 180 mg tablet, Take 180 mg by mouth daily., Disp: , Rfl: FLUoxetine (PROzac) 20 mg capsule, Take 20 mg by mouth daily., Disp: , Rfl: hydrocortisone (HYTONE) 2.5 % cream, Apply 1 Application topically as needed for irritation., Disp:, Rfl: loratadine (CLARITIN) 10 mg tablet, Take 10 mg by mouth daily. (Patient not taking: Reported on 12/17/2024), Disp: , Rfl: metFORMIN XR (Glucophage-XR) 500 mg 24 hr tablet, TAKE 2 TABLETS BY MOUTH TWICE A DAY WITH FOOD, Disp: 360 tablet, Rfl: 3 multivit with calcium,iron,min (MULTIPLE VITAMIN, WOMENS ORAL), Take 2 tablets by mouth daily. Vitamin A, C , E, 2 gummies daily, Disp: , Rfl: phentermine-topiramate (Qsymia) 15-92 mg capsule, ER multiphase 24 hr ER capsule, Take 1 capsule bymouth daily before morning meal., Disp: 90 capsule, Rfl: 1 [2] Allergies Allergen Reactions Ketamine Hives with other symptoms including blisters, Itching and Rash Pollen Extracts Headache Sneezing Ragweed Pollen Headache Tree And Shrub Pollen Headache Adhesive Itching, Rash and Other (see comments) [3] Past Medical History: Diagnosis Date Anemia 2016 Anxiety Generalized Disorder 2012 Blood Transfusion No Diagnosis 2004 Cataract 2017 Defect Coagulation (HCC) 1998 Depressive Disorder 2022 Eczema 2012 Gallbladder Disorder 1994 Gastroesophageal Reflux Disease NOS 2006 Hernia Ventral 06/02/2020 Added automatically from request for surgery [id number] Herniorrhaphy Ventral Status Post 1994 Irritable Bowel Syndrome, Unspecified 1994 Malignant Neoplasm Of Skin Basal Cell Carcinoma Malignant Neoplasm Of Skin Squamous Cell Carcinoma Nodule Thyroid 2020 Obesity Body Mass Index 30-39.9 Adult 10/22/2019 Osteopenia 2019 Other Specified Health Status 1998 Fibroid tumor/hysterectomy Polyp Colon 1998 Renal Disease 2020 Seroma Infected Postoperative Initial 07/27/2020 [4] Past Surgical History: Procedure Laterality Date EXPLORATION ABDOMINAL N/A 08/01/2020 Procedure: EXPLORATION ABDOMINAL WALL SEROMA, DEBRIDEMENT, IRRIGATION, EXCISION SEROMA CAPSULE, WOUND VAC PLACEMENT,; Surgeon: Blaire Marin M.D.; Location: [facility] EXPLORATION ABDOMINAL WITH IRRIGATION - DEBRIDEMENT AND DRESSING CHANGE Midline 08/06/2020 Procedure: EXPLORATION ABDOMINAL WITH IRRIGATION, DEBRIDEMENT, wound vac exchange.; Surgeon: Blaire Marin M.D.; Location: [facility] EXPLORATION ABDOMINAL WITH IRRIGATION - DEBRIDEMENT AND DRESSING CHANGE Midline 08/08/2020 Procedure: EXPLORATION ABDOMINAL WITH IRRIGATION, DEBRIDEMENT, DRESSING CHANGE, Skin closure over drains.; Surgeon: Blaire Marin M.D.; Location: [facility] GALLBLADDER SURGERY 1998 HERNIA REPAIR Incisional HYSTERECTOMY 1998 JOINT REPLACEMENT 2015 LAPAROSCOPIC DANUTA FUNDOPLICATION N/A 11/28/2019 Procedure: LAPAROSCOPIC CONVERTED TO OPEN DANUTA FUNDOPLICATION.; Surgeon: Rossana Ross M.D.; Location: [facility] MOHS SURGERY PARATHYROIDECTOMY - EXPLORATION CENTRAL NECK N/A 12/11/2020 Procedure: PARATHYROIDECTOMY, EXPLORATION CENTRAL NECK, INTRAOPERATIVE PARATHYROID HORMONE ASSAY MONITORING.; Surgeon: Jessica Carvajal M.D.; Location: [facility] REPAIR HERNIA VENTRAL WITH MESH N/A 07/07/2020 Procedure: OPEN REPAIR HERNIA VENTRAL WITH MESH, mesh explantation, retrorectus incisional hernia repair with mesh; Surgeon: Blaire Marin M.D.; Location: [facility] SINUS SURGERY 2015 Uncontrollable nose bleed WOUND EXPLORATION Midline 08/04/2020 Procedure: WOUND IRRIGATION AND WOUND VAC EXCHANGE; Surgeon: Blaire Marin M.D.; Location: [facility] WOUND EXPLORATION N/A 08/08/2020 Procedure: EXPLORATION WOUND, midline.; Surgeon: Jose Núñez M.D., D.D.S.; Location: [facility] OR [5] Family History Problem Relation Name Age of Onset Melanoma Paternal Grandfather Grandpa Reji Cause of in mid 80???s Basal cell carcinoma Sister Rachele Psoriasis Sister Rachele Skin cancer Sister Rachele Colon polyps Sister Rachele Clotting/ bleeding disorder Sister Rachele Ovarian cancer Sister Rachele Basal cell carcinoma Brother Zac Skin cancer Brother Zac Hypertension Brother Zac Obesity Brother Zac Colon polyps Brother Zac Colon cancer Paternal Grandmother Paternal grandmother Surgery in mid 50???s. Lived a long time after Stroke Paternal Grandmother Paternal grandmother Dementia Paternal Grandmother Paternal grandmother Stroke Father Reji Transient ischemic attack Father Reji Hypertension Father Reji Kidney disease Father Reji Dementia Father Reji Tuberculosis Father Reji Clotting/ bleeding disorder Father Reji Hyperlipidemia (high cholesterol) Sister Christy Kidney disease Sister Christy Colon polyps Sister Christy Clotting/ bleeding disorder Sister Christy Obesity Sister Christy Osteoporosis Sister Christy Arthritis Sister Christy Clotting/ bleeding disorder Mother Sheeba documented in this encounter Plan of Treatment Upcoming Encounters Date Type Department Care Team (Latest Contact Info) Description 02/11/2025 8:30 AM TON CYLINDER INSPECTOR Clinical Communication Virtual Review in [place], [place] [address] [place] [address] 02/12/2025 2:40 PM TON CYLINDER INSPECTOR Comprehensive Visit Department of Dermatology in [address] [phone] Daryl Dorsey M.D. [address] [place] [phone] documented as of this encounter Results * CO ARTHCS ASP/INJ MJR JT W US (12/19/2024 11:00 AM CDT) Narrative MMODAL - 12/19/2024 11:00 AM CDT Beata Yadav M.D. 12/19/2024 11:29 AM Knee site- R knee joint : injection only Performed by: Beata Yadav M.D. Authorized by: Gena Abbott D.O. Care team members present 1. Beata Yadav M.D. 2. Tabitha Dawson M.S., L.A.T., A.T.C. PROCEDURE DETAILS Procedure Location knee Knee site: R knee joint Site prep: patient was prepped and draped in usual sterile fashion Procedure performed: injection only Ultrasound image guidance used to localize target, identify at risk structures, and dynamically used to direct therapy to the target. Image(s) acquired and saved. Pre-procedure image guidance used to localize target and identify at risk structures, and plan approach Procedural Medication The following medications were administered at the target site(s) Local anesthetic: 3 mL lidocaine (PF) 10 mg/mL (1 %) Corticosteroid: 40 mg triamcinolone acetonide 40 mg/mL CONSENT Consent obtained: written (Risks, benefits and alternatives were discussed and a written Informed Consent was obtained. Please see Informed Consent form for further details.) UNIVERSAL PROTOCOL All relevant documentation and testing were reviewed and available. All required blood products, implants, devices and or special equipment were made available as applicable. Pre-procedure verification was conducted and the correct site was marked if required. A fire risk and smoke assessment were done as applicable. The procedural time-out to verify correct patient, correct side/site, and procedure was conducted prior to performing the procedure and confirmed in a procedural pause. PRE-PROCEDURE DETAILS Appropriate hand hygiene, gown, cap, mask, protective eyewear, sterile gloves, skin preparation, sterile drape, and strict aseptic technique were utilized as applicable for the procedure. Site preparation: chlorhexidine Gena Abbott D.O. PROCEDURE/MINOR SURGICAL OR DERABLES Final Result MMODAL NA documented in this encounter Visit Diagnoses Diagnosis Primary Osteoarthritis Knee Right- Primary Primary Osteoarthritis Knee Right documented in this encounter Additional Health Concerns Assessment Noted Time PHQ-9 Depression Total Score: 8 03/30/19 25 9:20 AM TON CYLINDER INSPECTOR documented as of this encounter Care Teams Licensed Nurse Practitioner Relationship Specialty Start Date End Date Elsewhere, Pcp PCP - General Family Medicine 10/10/17 documented as of this encounter
--- OUTSIDE RECORDS SUMMARY | 2024-12-18 12:00 | XMS_ITS | Encounter Summary ---
Author Organization [facility] Address [address] [place] [address] Care Team Providers Care Dipper Machine Operator Name Role Phone Elsewhere, Pcp Primary Care Provider Unavailabl e Encounter Details Date Type Department Care Team (Late st Contact Info) Description 12/18/2024 1:00 PM CDT Admin Visit Department of Sports Medicine in [place], [place] [address] [place] [phone] Lyndsey Ruiz, Unlicensed [place] Social History Tobacco Use Types Packs/Day Years [...] your living situation today? I have a [facility] place to live 01/10/2023 Education Answer Date Recorded What is the highest level of school you have completed or the highest degree you have received? 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 female who was seen for application of a right Leonides Pull Lite Patellofemoral Stabilizing Knee Brace (XXL). Please see Dr. Yadav's note dated 12/18/24 for details regarding diagnosis and plan of care. Love was fitted for DME. All questions answered. Patient was provided information on how to contact care team if they have any questions or concerns. Payment for DME will be processed by Lorna through patient's insurance. documented in this encounter Plan of Treatment Upcoming Encounters Date Type Department Care Team (Latest Contact Info) Description 02/11/2025 8:30 AM PLANTING MATERIAL CARRIER Clinical Communication Virtual Review in [place], [place] [address] [place] [address] 02/12/2025 2:40 PM PLANTING MATERIAL CARRIER Comprehensive Visit Department of Dermatology in [place], [place] [address] [place] [phone] Daryl Dorsey M.D. [address] [place] [phone] documented as of this encounter Visit Diagnoses Not on filedocumented in this encounter Additional Health Concerns Assessment Noted Time PHQ-9 Depression Total Score: 8 03/30/19 25 9:20 AM PLANTING MATERIAL CARRIER documented as of this encounter Care Teams Dipper Machine Operator Relationship Specialty Start Date End Date Elsewhere, Pcp PCP - General Family Medicine 10/10/17 documented as of this encounter
--- OUTSIDE RECORDS SUMMARY | 2024-12-19 10:00 | XMS_ITS | Encounter Summary ---
Author Organization [facility] Address [address] [place] [address] Care Team Providers Care Lacing Operator Name Role Phone Elsewhere, Pcp Primary Care Provider Unavailabl e Reason for Visit * Outpatient (Routine) - Closed Specialty Diagnoses / Procedures Referred By Minna limon Referred To Contact Diagnoses Primary Osteoarthritis Knee Right Procedures SPM US-Guided aspiration/injection Gena Abbott D.O. [address] [place] [address] Phone: tel: fax: [facility] Referral ID Status Reason Start Date Expiration Date Visits Re quested Visits Authorized [id number] Closed 12/18/2024 03/20/2026 1 1 Encounter Details Date Type Department Care Team (Latest Contact Info) Description 12/19/2024 11:00 AM CDT Procedure visit Department of Sports Medicine in [place], [place] [address] [place] [address] Beata Yadav M.D. 600 [facility] [address] [place] [address] Primary Osteoarthritis Knee Right Social History Tobacco Use Types Packs/Day Years [...] your living situation today? I have a [facility] place to live 01/10/2023 Education Answer Date Recorded What is the highest level of school you have completed or the highest degree you have received? 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 - 12/19/2024 11:00 AM CDT No increased activity or working out the day of the injection, but it is okay to perform typical daily activities. Do not submerge the area in water for 48 hours, but you can take a shower. Ice the area if you are sore. You can take your normal over the counter medications to help with the pain if needed. Gradually increase your activities after 24 hours as tolerated. If you develop signs or symptoms of an infection (e.g., redness, swelling, increased pain, drainage, fever), suspect you may be having a reaction to the medication, or have any questions call [facility] Sports Medicine at [phone] during regular business hours. If you are experiencing serious symptoms, call 911 or go to the emergency room. documented in this encounter Procedure Notes * Beata Yadav M.D. - 12/19/2024 11:00 AM CDTAssociated Order(s): SPM US- Guided aspiration/injection: R knee joint Pre-Procedure Diagnose(s): Primary Osteoarthritis Knee Right Post-Procedure Diagnose(s): Primary Osteoarthritis Knee Right Pre-Procedure Diagnosis: right knee pain Post-Procedure Diagnosis: right knee pain Procedure: US-guided right knee joint corticosteroid injection History Present Illness: Mrs. Mendoza is a pleasant 69 y.o. female with right knee pain secondary to degenerative changes. She is here today for an ultrasound guided right knee joint corticosteroid injection for improved pain control. Medications and allergies were reviewed with the patient. No contraindications were identified. Using ultrasound, a pre-scan of the region was performed to identify the target structure. A tiny effusion was noted. Procedure: Ultrasound/ Transducer: Buddy RS85/ 2-14 MHz linear transducer Patient position: Supine with the knee bent to 30 degrees. Localization process: The suprapatellar recess was localized in a short axis view. Local anesthesia: No local anesthesia was used. Needle: A 25 gauge, 2 inch needle was used for the injectate. Approach: A lateral to medial, in plane, approach was used to guide the needle tip into the suprapatellar recess deep to the quadriceps tendon and superficial to the prefemoral fat pad. Injection/Aspiration: A mixture of 3 cc of 1% lidocaine and 1 cc of triamcinolone (40mg/cc) was injected without complication. Post-procedural care: The patient tolerated the procedure well. The patient was asked to ice for improved pain control and avoid submerging the area in water for the next 48 hours to help reduce the risk of infection. The patient was instructed to call the office immediately if there are any questions or concerns. She will plan to follow up as needed. Diagnosis: US-guided right knee joint corticosteroid injection PATIENT EDUCATION: Education was discussed at today's appointment. A learning needs assessment was performed. Primary learner: Love Mendoza Barriers to learning: None Preferred language: Greenlandic Learning preferences include: Seeing and doing. Discussed: Diagnosis and treatment plan. Demonstrated: Understanding of material discussed. Patient education materials given: Post procedure after visit summary . Learner response: Learner demonstrated understanding. Knee site- R knee joint : injection [...] applicable for the procedure. Site preparation: chlorhexidine documented in this encounter Plan of Treatment Upcoming Encounters Date Type Department Care Team (Latest Contact Info) Description 02/11/2025 8:30 AM CHAIR MAKER Clinical Communication Virtual Review in [address] [phone] 02/12/2025 2:40 PM CHAIR MAKER Comprehensive Visit Department of Dermatology in [address] [phone] Daryl Dorsey M.D. [address] [place] [phone] documented as of this encounter Procedures Procedure Name Priority Date/Time Associated Diagnosis Comments NM ARTHCS ASP/INJ MJR JT W US Routine 12/19/2024 11:00 AM CDT Primary Osteoarthritis Knee Right documented in this encounter Results * NM ARTHCS ASP/INJ MJR JT W US (12/19/2024 11:00 AM CDT) Narrative MMODAL - 12/19/2024 11:00 AM CDT Beata Yadav M.D. 12/19/2024 11:29 AM Knee site- R knee joint : injection only Performed by: Beata Yadav M.D. Authorized by: Gena Abbott D.O. Care team members present 1. Beata Yadav M.D. 2. Tabitha Dawson M.S., Bucky, A.T.C. PROCEDURE DETAILS Procedure Location knee Knee [...] encounter Visit Diagnoses Diagnosis Primary Osteoarthritis Knee Right documented in this encounter Administered Medications Inactive Administered Medications - up to 3 most recent administrations Medication Order MAR Action Action Date Dose Rate Site lidocaine (PF) 10 mg/mL (1 %) injection 3 mL (Xylocaine) 3 mL, injection, One-Time Injection, Starting on Tue12/19/24 at 1100, For 1 doseIndications:Primary Osteoarthritis Knee Right Given 12/19/2024 11:00 AM CDT 3 mL triamcinolone acetonide injection 40 mg (Kenalog-40) 40 mg, intra-articular, One-Time Injection, Starting on Tue12/19/24 at 1100, For 1 doseIndications:Primary Osteoarthritis Knee Right Given 12/19/2024 11:00 AM CDT 40 mg documented in this encounter Additional Health Concerns Assessment Noted Time PHQ-9 Depression Total Score: 8 03/30/19 9:20 AM CHAIR MAKER documented as of this encounter Care Teams Lacing Operator Relationship Specialty Start Date End Date Elsewhere, Pcp PCP - General Family Medicine 10/10/17 documented as of this encounter
--- OUTSIDE RECORDS SUMMARY | 2025-01-21 14:51 | XMS_ITS | Encounter Summary ---
Author Organization [facility] Address [address] [place] [address] Care Team Providers Care Conditioner Tumbler Name Role Phone Unavailable Primary Care Provider Unavailabl e Encounter Details Date Type Department Care Team (Late st Contact Info) Description 12/20/2024 Notes/Orders Audiology at [address] [phone] Tech, Bv Audiology Social History Tobacco Use Types Packs/Day Years Used Date Smoking Tobacco: Never Assessed Comments Unknown Sex and Gender Information Value Date Recorded Sex Assigned at Not on file Legal Sex Female 10:30 AM CDT Gender Identity Not on file Sexual Orientation Not on file documented as of this encounter Plan of Treatment Upcoming Encounters Date Type Department Care Team (Late st Contact Info) Description 04/16/2025 11:00 AM REPAIRER HAIRSPRING Appointment Audiology at [facility] [address] [place] [phone] [place] [phone] Jolie Marcus AU.D. [address] [place] [phone] 04/30/2025 11:00 AM REPAIRER HAIRSPRING Appointment Audiology at [phone] [place] [phone] Jolie Marcus AU.D. [address] [place] [address] 05/14/2025 11:00 AM REPAIRER HAIRSPRING Appointment Audiology at [facility] [address] [phone] Jolie Marcus AU.D. [address] [place] [phone] documented as of this encounter Visit Diagnoses Not on filedocumented in this encounter
--- OUTSIDE RECORDS SUMMARY | 2025-01-21 14:51 | XMS_ITS | Encounter Summary ---
Author Organization [facility] Address [address] [place] [address] Care Team Providers Care Forging Press Lever Tender Name Role Phone Unavailable Primary Care Provider Unavailabl e Encounter Details Date Type Department Care Team (Late st Contact Info) Description 01/17/2025 Notes/Orders Audiology at [address] [phone] Tech, Bv Audiology Social History Tobacco Use [...] st Contact Info) Description 04/16/2025 11:00 AM BEATER LEAD Appointment Audiology at [facility] [address] [place] [phone] [place] [phone] Jolie Marcus AU.D. [address] [place] [phone] 04/30/2025 11:00 AM BEATER LEAD Appointment Audiology at [facility] [address] [place] [phone] [place] [phone] Jolie Marcus AU.D. [address] [place] [phone] 05/14/2025 11:00 AM BEATER LEAD Appointment Audiology at [facility] [address] [address] Jolie Marcus AU.D. [address] [place] [phone] documented as of this encounter Visit Diagnoses Not on filedocumented in this encounter
--- OUTSIDE RECORDS SUMMARY | 2025-01-21 14:52 | XMS_ITS | Clinical Summary ---
Author Organization [facility] Address [address] [place] [id number] Care Team Providers Care Bottling Equipment Sales Representative Name Role Phone Ligia Cash MD Primary Care Provider [phone] Allergies Active Allergy Reactions Criticality Noted Date Comments Adhesive Rash 02/18/2016 Medications metFORMIN (GLUCOPHAGE) 500 mg tablet Take 2 tablets by mouth 2 times daily with meals. 0 4 Active buPROPion (WELLBUTRIN XL) 150 mg Extended-Releas e tablet Take 2 tablets by mouth every morning. 0 4 Active warfarin (COUMADIN) 5 mg tablet Take 1 tablet by mouth once daily. 0 4 Active warfarin (COUMADIN) 2 mg tablet Take 1 tablet by mouth once daily. 0 4 Active hydrocortisone butyrate (LOCOID OINTMENT) 0.1 % oint Apply topically to affected area(s) 2 times daily. 1 Tube 0 4 Active diazepam (VALIUM) 5 mg tablet Take 1 tablet by mouth every 6 hours if needed. 0 4 Active Omeprazole 20 mg tablet Take 1 tablet by mouth once daily. 0 4 Active warfarin (COUMADIN) 1 mg tablet Take 1 tablet by mouth once daily. 90 tablet 0 4 Active atorvastatin (LIPITOR) 10 mg tablet Take 1 tablet by mouth once daily. 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 Immunizations Immunization Administration Dates Next Due Influenza, IIV3 (Age [...] drink = 0.6 oz pur e alcohol) Comments Unknown Sex and Gender Information Value Date Recorded Sex Assigned at Not on file Legal Sex Female 4:44 PM CDT Gender Identity Not on file Sexual Orientation Not on file Obstetrics History Last Filed Vital Signs Vital Sign Reading Time Taken Comments Blood Pressure 125/84 01/17/2015 2:01 PM LOCAL GOVERNMENT LEGISLATOR Pulse 84 01/17/2015 2:01 PM LOCAL GOVERNMENT LEGISLATOR Temperature 36.7 C (98.1 F) 01/17/2015 2:01 PM LOCAL GOVERNMENT LEGISLATOR Respiratory Rate - - Oxygen Saturation 92% 01/17/2015 2:01 PM LOCAL GOVERNMENT LEGISLATOR Inhaled Oxygen Concentration - - Weight 96.8 kg (213 lb 7 oz) 01/17/2015 2:01 PM LOCAL GOVERNMENT LEGISLATOR Height 157.5 cm (5' 2) 01/17/2015 2:01 PM LOCAL GOVERNMENT LEGISLATOR Body Mass Index 39.04 01/17/2015 2:01 PM LOCAL GOVERNMENT LEGISLATOR Plan of Treatment Health Maintenance Due Date Last Done Comments BMI (ht and wt on same day) for age 18+ 07/31/1971 Hepatitis C screening for age 18-79 07/31/1971 Lipids for age 45-75 1998 Mammogram for age 45-75 1998 Pneumococcal series for age 50+ (1 of 1 - PCV) 07/31/2003 Zoster (shingles) series for age 50+ (2 of 3) 03/08/2014 01/11/2014 Depression screening for age 12+ 05/27/2016 05/28/2015, 05/07/2015, 04/23/2015 DEXA/DXA scan for age 65+ 2018 Medicare Wellness for age 65+ 2018 Tetanus booster 01/12/2024 01/11/2014 Influenza Vaccine (#1) 2024 12/12/2014 Colonoscopy through age 75 02/17/202602/17, 02/18/2016, 11/24/2009, Additional history exists RSV vaccine for adults or (1 - 1-dose 75+ series) 2028 Hepatitis B series for 19+ Aged Out N o longer eligible based on patient's age to complete this topic Procedures Procedure Name Priority Date/Time Associated Diagnosis Comments COLONOSCOPY 02/18/2016 11:36 AM LOCAL GOVERNMENT LEGISLATOR from Last 3 Months or Most Recently Relevant to Health Maintenance Results * COLONOSCOPY (02/18/2016 11:36 AM LOCAL GOVERNMENT LEGISLATOR) 02/18/2016 11:3 6 AM LOCAL GOVERNMENT LEGISLATOR Narrative Transcriptions Alan Carreno MD - 02/18/2016 [...] an adequate candidate for conscious sedation. The [id number] was passed through the anus with the [...] 11:36 AM Procedure Code(s): --- Professional --- 57142, 53, Colonoscopy, flexible;diagnostic, including collection of specimen(s) bybrushing or washing, when performed (separateprocedure) Diagnosis Code(s): --- Professional --- K58.9, Irritable bowel syndrome withoutdiarrhea K57.30, Diverticulosis of large intestine without perforation or abscess withoutbleeding CPT copyright 2015 [employer]. All rights reserved. The codes documented in this report are preliminary and upon therapy administrative assistant reviewmay be revised to meet current compliance requirements. Scope In: 11:39:29 AM Scope Out: 11:47:10 AM us Alan Carreno MD PROCEDURE ORD Final Res ult from Last 3 Months or Most Recently Relevant to Health Maintenance Insurance MEDICARE PB ONLY [facility] Care Teams Bottling Equipment Sales Representative Relationship Specialty Start Date End Date Ligia Cash MD PCP - General Internal Medicine 02/18/16
--- OUTSIDE RECORDS SUMMARY | 2025-01-21 14:52 | XMS_ITS | Encounter Summary ---
Author Organization [facility] Address [address], [place] [address] Care Team Providers Care Television Installer Name Role Phone Unavailable Primary Care Provider Unavailabl e Encounter Details Date Type Department Care Team (Late st Contact Info) Description 12/17/2024 Notes/Orders Audiology at [facility] [address] [place] [address] [phone] Jolie Marcus AU.D. [address] [place] [phone] Social History Tobacco Use Types Packs/Day Years [...] st Contact Info) Description 04/16/2025 11:00 AM ASSISTANT TO THE PRESIDENT Appointment Audiology at [facility] [address] [place] [phone] [place] [phone] Jolie Marcus AU.D. [address] [place] [phone] 04/30/2025 11:00 AM ASSISTANT TO THE PRESIDENT Appointment Audiology at [facility] [address] [place] [phone] [place] [address] [phone] Jolie Marcus AU.D. [address] [place] [phone] 05/14/2025 11:00 AM ASSISTANT TO THE PRESIDENT Appointment Audiology at [facility] [address] [phone] Jolie Marcus AU.D. [address] [place] [phone] documented as of this encounter Visit Diagnoses Not on filedocumented in this encounter
--- OUTSIDE RECORDS SUMMARY | 2025-01-21 14:52 | XMS_ITS | Encounter Summary ---
Author Organization [facility] Address [address] [place] [address] Care Team Providers Care Medical Office Supervisor Name Role Phone Elsewhere, Pcp Primary Care Provider Unavailabl e Reason for Referral * Outpatient (Routine) - Closed Specialty Diagnoses / Procedures Referred By Minna t Referred To Contact Diagnoses Pain Knee Right Procedures DX Knee Right 4+ Views Beata Yadav M.D. [address] [phone] Phone: tel: fax: [facility] Referral ID Status Reason Start Date Expiration Date Visits Re quested Visits Authorized [id number] Closed 11/21/2024 02/21/2026 1 1 Encounter Details Date Type Department Care Team (Late st Contact Info) Description 11/21/2024 Clinical Communication Department of Sports Medicine in [place], [place] [address] [place] [phone] Beata Yadav M.D. [address] [phone] Social History Tobacco Use Types Packs/Day Years [...] your living situation today? I have a [facility] place to live 01/10/2023 Education Answer Date Recorded What is the highest level of school you have completed or the highest degree you have received? 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 [address] [place] [phone] documented as of this encounter Results * DX Knee Right [...] posteriorly. Patellar andtibial tuberosity enthesophytes. us Beata Yadav M.D. IMG DIAGNOSTIC IMAGING PROC EDURES Final Result documented in this encounter Visit Diagnoses Diagnosis Pain Knee Right- Primary Pain Knee Right documented in this encounter Additional Health Concerns Assessment Noted Time PHQ-9 Depression Total Score: 8 03/30/19 25 9:20 AM MAINTENANCE SHOP CLERK documented as of this encounter Care Teams Medical Office Supervisor Relationship Specialty Start Date End Date Elsewhere, Pcp PCP - General Family Medicine 10/10/17 documented as of this encounter
--- OUTSIDE RECORDS SUMMARY | 2025-01-21 14:52 | XMS_ITS | Clinical Summary ---
Author Organization [facility] Address [address] [place] [address] Care Team Providers Care Reach Truck Operator Name Role Phone Unavailable Primary Care Provider Unavailabl e Source Comments You are receiving this document as you are listed as the primary care provider,follow-up provider, or the patient has been referred to you for consultation.This is in compliance with the Medicare andMedicaid EHR Incentive Program,which states Providers who transition their patient to another setting of careor provider of care or refers their patient to another provider of care shouldprovide summary care record for each transition of care or referral. [facility] En[facility] Date Type Department Care Team Description 01/17/2025 Notes/Orders Audiology at [facility] [address] [place] [phone] [place] [phone] Tech, Audiology 12/20/2024 Notes/Orders Audiology at [facility] [address] [place] [phone] [place] [phone] Tech, Bv Audiology 12/17/2024 Notes/Orders Audiology at [facility] [address] [place] [phone] [place] [phone] Jolie Marcus AU.D. 11/26/2024 8:30 AM CDT Office Visit Audiology at [facility] [address] [place] [phone] [place] [phone] Jolie Marcus AU.D. Sensorineural hearing loss (SNHL) of both ears (Primary Dx) from Last 3 Months Social History Tobacco Use Types Packs/Day Years Used Date Smoking Tobacco: Never Assessed Comments Unknown Sex and Gender Information Value Date Recorded Sex Assigned at Not on file Legal Sex Female 10:30 AM CDT Gender Identity Not on file Sexual Orientation Not on file Plan of Treatment Upcoming Encounters Date Type Department Care Team (Late st Contact Info) Description 04/16/2025 11:00 AM DOCUMENT CONTROL MANAGER Appointment Audiology at [facility] [address] [facility] [phone] [place] [phone] Jolie Marcus AU.D. [address] [place] [phone] 04/30/2025 11:00 AM DOCUMENT CONTROL MANAGER Appointment Audiology at [facility] [address] [place] [phone] [place] [phone] Jolie Marcus AU.D. [address] [place] [phone] 05/14/2025 11:00 AM DOCUMENT CONTROL MANAGER Appointment Audiology at [facility] [address] [place] [phone] [place] [phone] Jolie Marcus AU.D. [address] [place] [phone] Health Maintenance Due Date Last Done Comments Colon Cancer Screening Plan Due 1955 Hep C Screening (Preventive Services) 1955 Medicare Annual Wellness Visit 1955 Mammogram 1955 DTaP/Tdap/Td Vaccine (1 - Tdap) 1972 Cholesterol 1998 Dexa 2018 COVID-19 Vaccine ( season) 2024 11/30/2022, 11/27/2021 Influenza Vaccine (#1) 2024 2, 12/15/2020, 11/27/2019, Additional history exists RSV Vaccine (1 - 1-dose 75+ series) 2028 Zoster/Shingles Vaccine Completed 05/19/19 19, 11/11/2017, 01/11/2014 Pneumococcal Vaccine 50+ Yrs Completed 07/19/2019, 08/29/2018 HepA Vaccine Aged Out No longer eligi ble based on patient's age to complete this topic HepB Vaccine Aged Out No longer eligi ble based on patient's age to complete this topic Hib Vaccine Aged Out No longer eligi ble based on patient's age to complete this topic IPV (Polio) Vaccine Aged Out No longe r eligible based on patient's age to complete this topic MCV4 Vaccine Aged Out No longer eligi ble based on patient's age to complete this topic Meningococcal B Vaccine Aged Out No l onger eligible based on patient's age to complete this topic Insurance [facility] MEDICARE SUPPLEMENT MEDICARE
--- OUTSIDE RECORDS SUMMARY | 2025-01-21 14:52 | XMS_ITS ---
Author Organization [facility] Care Team Providers Care Mechanical Project Engineer Name Role Phone Chandni Maldonado Unavailable Unavailable Airam Morales Unavailable Unavailable Allergies and adverse reactions Code CodeSystem Substance Reaction Severity StartDate Concern Status sesonal Unknown Unknown active Care Team Name Role Address Phone Organization Dates Chandni Maldonado PCP [address] [facility], [place], [address], [place] (Office): : [facility] 10/16/2015 - 10/21/2015 Airam Morales [address] [place] [address], [address], [place] (Office): : [facility] 10/16/2015 - 10/21/2015 Functional Status Functional Condition Code Code System Date Dependence on Cane 444535250 SNOMED CT 6 Immunizations Immunization Status Vaccine Details Vaccine Code CodeSystem Chad e Notes Influenza cancelled Influenza, split virus, quadrivalent, injectable, contains preservative 158 CVX created date: 10/21/2015 consent date: 10/21/2015 Patient stated she did not want one and would not discuss if she had one prior. Mental Status Section Date Assessment Total Score Description 10/21/2015 BIMS 15 cognitively int act PHQ-9 00 Insurance Providers Problems Problem # Description Date of onset Resolved Date Code CodeSystem Concern Status 1 ACTIVATED PROTEIN C RESISTANCE 10/16/[address] active 2 AFTERCARE FOLLOWING JOINT REPLACEMENT SURGERY 10/16/[address] active 3 ANXIETY DISORDER, UNSPECIFIED 10/16/[address] active 4 DYSTHYMIC DISORDER 10/16/[address] active 5 GASTRO-ESOPHAGEAL REFLUX DISEASE WITHOUT ESOPHAGITIS 10/16/[address] active 6 HYPERLIPIDEMIA, UNSPECIFIED 10/16/[address] active 7 IRON DEFICIENCY ANEMIA, UNSPECIFIED 10/16/[address] active 8 METABOLIC SYNDROME 10/16/2015 540135360 [facility] C T active 9 MUSCLE WEAKNESS (GENERALIZED) 10/16/[address] active 10 OBESITY, UNSPECIFIED 10/16/[address] active 11 OTHER ABNORMALITIES OF GAIT AND MOBILITY 10/16/[address] active 12 OTHER SPECIFIED DISORDERS OF BONE DENSITY AND STRUCTURE, UNSPECIFIED SITE 10/16/[address] active 13 PAIN IN UNSPECIFIED JOINT 10/16/[address] active 14 PERSONAL HISTORY OF OTHER VENOUS THROMBOSIS AND EMBOLISM 10/16/[address] active 15 PRESENCE OF LEFT ARTIFICIAL HIP JOINT 10/16/[address] active 16 RENAL AGENESIS, UNILATERAL 10/16/[address] active 17 UNSPECIFIED ABNORMALITIES OF GAIT AND MOBILITY 10/16/[address] active Reason for Referral No Reasons for Referral Entered Social History Social History Observation Description Start Date End Date Code Code System Current Smoking Status Tobacco smoking consumption unknown 743157544 SNOMED CT Sex Assigned At Female 1955 53332-3 [facility] Gender Identity Sexual Orientation Vital Signs Code Code System Vitals Name Values and Units Timing Information 28613-5 LOINC Pain Level Value=5.0 10/21/2015 8302-2 LOINC Height Value=62.0 Units=Inches 10/21/2015 8462-4 LOINC Blood Pressure-Diastolic Value=67 Un its=mmHg 10/20/2015 8480-6 [facility] Blood Pressure-Systolic Vjbaz=338 Un its=mmHg 10/20/2015 8310-5 [facility] Body Temperature Value=99.0 Units= F 10/20/2015 8867-4 [facility] Heart rate Value=94.0 Units=/min 10/2015 66664-5 [facility] O2 % BldC Oximetry Value=98.0 Units= % 10/20/2015 9279-1 [facility] Respiratory Rate Value=16.0 Units=/m in 10/19/2015 56948-8 [facility] Weight Imeyl=748.4 Units=Lbs 07/2015
--- OUTSIDE RECORDS SUMMARY | 2025-01-21 14:52 | XMS_ITS | Clinical Summary ---
Author Organization [facility] Address [address] [place] [address] Care Team Providers Care Procedures Nurse Name Role Phone Elsewhere, Pcp Primary Care Provider Unavailabl e Source Comments Patient records contain information from all sites at [facility]. For routine questions regarding patient records, call [phone] during business hours, M-F 8:00 AM - 5:00 PM Central Time. Record requests for emergency care only can be directed to [phone] at any time.[facility] Allergies Active Allergy Reactions Criticality Noted Date Comments Adhesive Itching,Rash,Other ( see comments) Low 02/18/2016 Ketamine Hives with other sym ptoms including blisters,Itching,Rash High 11/02/2023 Pollen Extracts Headache High 11/30/2018 Sneezing Ragweed Pollen Headache High 10/04/2022 Tree And Shrub Pollen Headache High 11/23/2022 Medications * This document contains information received from the source organization and may not represent a complete record from that organization. atorvastatin (LIPITOR) 40 mg tablet Take 40 mg by mouth at bedtime. 3 8 Active buPROPion XL (WELLBUTRIN XL) 300 mg 24 hr tablet Take 300 mg by mouth daily. 3 9 Active chlorpheniramin e/dextromethorp (CORICIDIN HBP COUGH AND COLD ORAL) Take 1 tablet by mouth daily as needed (allergies). If fexofenadine does not relieve allergy symptoms. Active cyanocobalamin (Vitamin B-12) 1,000 mcg tablet Take 1,000 mcg by mouth daily. Active acetaminophen (TYLENOL) 500 mg capsule Take 2 capsules (1,000 mg total) by mouth every 6 (six) hours as needed for pain. 1 Active Eliquis 2.5 mg tablet Take 2.5 mg by mouth 2 (two) times a day. 2 Active cholecalciferol (Vitamin D3) 125 mcg (5,000 Unit) tablet Take 2,500 Units by mouth daily. 0.5 tablet daily 2 Active loratadine (CLARITIN) 10 mg tablet Take 10 mg by mouth daily. Active FLUoxetine (PROzac) 20 mg capsule Take 20 mg by mouth daily. 3 Active hydrocortisone (HYTONE) 2.5 % cream Apply 1 Application topically as needed for irritation. 3 Active multivit with calcium,iron,mi n (MULTIPLE VITAMIN, WOMENS ORAL) Take 2 tablets by mouth daily. Vitamin A, C , E, 2 gummies daily Active clobetasoL (Temovate) 0.05 % cream Apply 1 Application topically as needed. Apply to skin. Active clotrimazole (Lotrimin) 1 % cream Apply 1 Application topically as needed. Apply to feet. Active diphenhydrAMINE (BenadryL) 25 mg tablet Take 25 mg by mouth at bedtime as needed for sleep. Active metFORMIN XR (Glucophage-XR) 500 mg 24 hr tabletIndicatio ns:PreDiabetes TAKE 2 TABLETS BY MOUTH TWICE A DAY WITH FOOD 360 tablet 3 4 Active fexofenadine (Kristie) 180 mg tablet Take 180 mg by mouth daily. Active phentermine-top iramate (Qsymia) 15-92 mg capsule, ER multiphase 24 hr ER capsuleIndicati ons:Obesity Body Mass Index 30-39.9 Adult Take 1 capsule by mouth daily before morning meal. 90 capsule 1 5 05/19/19 26 Active Active Problems Problem Noted Date Diagnosed Date Primary Osteoarthritis Knee Right 12/18/2024 Overweight Body Mass Index 25-29.9 Adult 021 PreDiabetes 09/09/2020 Hypercalcemia 09/08/2020 Edema Lower Extremity 08/07/2020 Lory Albicans Oral 08/06/2020 Seroma Subsequent 07/15/2020 Anticoagulant Therapy 11/28/2019 Gastroesophageal Reflux Disease 10/22/2019 Obesity Body Mass Index 30-39.9 Adult 10/22/2019 Hernia Hiatal 10/12/2019 Overview (10/12/2019): Added automatically from request for surgery [id number] Mutation Factor V Leiden Heterozygous 09/18/2013 Solitary Kidney Congenital 09/18/2013 Anxiety Generalized Disorder 03/14/2011 Irritable Bowel Syndrome, Unspecified 03/14/1994 Insulin Resistance, Unspecified 03/14/1994 Hyperlipidemia 03/14/1994 Thrombosis Deep Vein Personal History 03/14/1994 Factor V Leiden Family History 03/14/1994 Thrombosis Deep Vein Family History 03/14/1994 Resolved Problems Problem Noted Date Diagnosed Date Resolved Date Seroma Infected Postoperative Initial 07/27/2020 11/05/2020 Hernia Ventral 06/02/2020 11/05/2020 Overview (06/02/2020): Added automatically from request for surgery [id number] Herniorrhaphy Ventral Status Post 03/14/1994 11/05/2020 Encounters Date Type Department Care Team Description 12/19/2024 11:00 AM CDT Procedure visit Department of Sports Medicine in [address] [phone] Beata Yadav M.D. Primary Osteoarthritis Knee Right 12/18/2024 1:00 PM CDT Admin Visit Department of Sports Medicine in [address] [address] [facility] 12/18/[facility]24 11:00 AM CDT Comprehensive Visit Department of Sports Medicine in [address] [address] Beata Yadav M.D. Primary Osteoarthritis Knee Right (Primary Dx) 12/18/2024 10:23 AM CDT - 12/18/2024 11:59 PM CDT Hospital Encounter Department of Radiology in [address] [address] Beata Yadav M.D. Pain Knee Right Discharge Disposition: Home or Self Care 12/17/2024 9:15 AM CDT Clinical Communication Virtual Review in [place], [place] [address] [place] [address] Pre-visit Intake 11/21/2024 Clinical Communication Department of Sports Medicine in [place], [place] [address] [place] [address] Beata Yadav M.D. 11/20/2024 Clinical Communication Department of Sports Medicine in [place], [place] [address] [place] [address] Prescheduling, Provider 11/19/2024 11:00 AM CDT Office Visit Division of Endocrinology in [place], [place] [address] [place] [phone] Tana Vazquez M.D. Gastroesophageal Reflux Disease (Primary Dx); Obesity Body Mass Index 30-39.9 Adult; Hernia Hiatal; PreDiabetes 11/15/2024 11:15 AM CDT Clinical Communication Virtual Review in [place], [place] [address] [place] [address] Pre-visit Intake from Last 3 Months Immunizations Immunization Administration Dates Next Due HZV (ZOSTAVAX) 01/11/2014 Influenza TIV (IM) 12/12/2014 Tdap 01/11/2014 influenza vaccine quad (FLUZ ONE/FLUARIX) (6 months and older)(PF) 01/01/2016,12/12/2014 Family History Medical History Relation Name Comments Basal cell carcinoma Brother 1 Zac Colon polyps Brother 1 Zac Hypertension Brother 1 Zac Obesity Brother 1 Zac Skin cancer Brother 1 Zac Clotting/ bleeding disorder Father Reji Dementia Father Reji Hypertension Father Reji Kidney disease Father Reji Stroke Father Reji Transient ischemic attack Father Reji Tuberculosis Father Reji Clotting/ bleeding disorder Mother Sheeba Melanoma Paternal Grandfather Grandpa Reji Cause of in mid 80 s Colon cancer Paternal Grandmother Paternal grandmother Surgery in mid 50 s . Lived a long time after Dementia Paternal Grandmother Paternal grandmother Stroke Paternal Grandmother Paternal grandmother Basal cell carcinoma Sister 1 Rachele Clotting/ bleeding disorder Sister 1 Rachele Colon polyps Sister 1 Rachele Ovarian cancer Sister 1 Rachele Psoriasis Sister 1 Rachele Skin cancer Sister 1 Rachele Arthritis Sister 2 Christy Clotting/ bleeding disorder Sister 2 Christy Colon polyps Sister 2 Christy Hyperlipidemia (high cholesterol) Sister 2 Christy Kidney disease Sister 2 [...] your living situation today? I have a [facility] place to live 01/10/2023 Education Answer Date Recorded What is the highest level of school you have completed or the highest degree you have received? 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 Not on file Not on file Not on file Last Filed Vital Signs Vital Sign Reading Time Taken Comments Blood Pressure 129/83 11/19/2024 11:00 AM CDT Pulse 87 11/19/2024 11:00 AM CDT Temperature 36.6 C (97.9 F) 12/11/2020 1:05 PM CDT Respiratory Rate 16 12/11/2020 1:05 PM CDT Oxygen Saturation 95% 12/11/2020 1:05 PM CDT Inhaled Oxygen Concentration - - Weight 78.9 kg (173 lb 15.1 oz) 025 11:00 AM CDT Height 157.6 cm (5' 2.05) 11/19/2024 1 1:00 AM CDT Body Mass Index 31.77 11/19/2024 11:00 AM CDT Plan of Treatment Upcoming Encounters Date Type Department Care Team (Latest Contact Info) Description 02/11/2025 8:30 AM SHOP FITTER Clinical Communication Virtual Review in [place], [place] [address] [place] [address] 02/12/2025 2:40 PM SHOP FITTER Comprehensive Visit Department of Dermatology in [place], [place] [address] [place] [phone] Daryl Dorsey M.D. [address] [place] [phone] Health Maintenance Due Date Last Done Comments CT Colonography 1955 Cologuard 1955 Hepatitis C Screening 1955 Lipid (Cholesterol) Screening 1955 Mammogram 1955 Colonoscopy 02/17/2021 02/18/2016 Colorectal Cancer Surveillance 02/17/2021 Fasting Glucose for Diabetes Screening 09/17/2021 09/17/2020, 08/09/2020, 08/09/2020, Additional history exists Fall Risk Screen (Annual) 03/14/2024 COVID-19 Vaccine ( season) 2024 09/01/2024, 11/11/2023, 07/06/2023, Additional history exists DTaP,Tdap,and Td Vaccines (3 - Td or Tdap) 03/10/2034 03/10/2024, 01/11/2014 Zoster Vaccines Completed 05/18/2018, 10/14, 01/11/2014 Pneumococcal vaccine (50+ years) Completed 07/19/2019, 08/29/2018 Bone Density Scan (Osteoporosis Screen) Discontinued 09/17/2020 Depression Screening (Annual PHQ-2) Completed 03/30/2024, 03/30/2024 Influenza Vaccine Completed 12/10/2024, , 01/06/2023, Additional history exists IPV Vaccines Aged Out No longer eligi ble based on patient's age to complete this topic Medical Devices Implanted Type Area Crop [employer] Scientist Device Identifier Shelf Expiration Date Model / Serial / Lot Clp Hrzn Ti 6 Clp Md Bello - [id number] Implanted:Qt y: 1 on 08/08/2020 by Blaire Marin M.D. at [facility] Hardware e.g. pins/screws /rods Abdomen upadflex OnApp [id number] 10/07/2024 [id number] / / [id number] Clp Hrzn Ti 6 Clp Md Bello - [id number] Implanted:Qt y: 1 on 08/08/2020 by Blaire Marin M.D. at [facility] Hardware e.g. pins/screws /rods Abdomen upadflex OnApp [id number] 10/07/2024 [id number] / / [id number] Clp Hrzn Ti 6 Clp Md Bello - [id number] Implanted:Qt y: 1 on 08/08/2020 by Blaire Marin M.D. at [facility] Hardware e.g. pins/screws /rods Abdomen [employer] [id number] 10/07/2024 / [id number] Clp Hrzn Ti 6 Clp Sm Red - [id number] Implanted:Qt y: 1 on 08/08/2020 by Blaire Marin M.D. at [facility] Hardware e.g. pins/screws /rods Abdomen [employer] [id number] 11/11/2024 / [id number] Clp Hrzn Ti 6 Clp Sm Red - [id number] Implanted:Qt y: 1 on 08/08/2020 by Blaire Marin M.D. at [facility] Hardware e.g. pins/screws /rods Abdomen [employer] [id number] 11/11/2024 / [id number] Clp Hrzn Ti 6 Clp Sm Red - [id number] Implanted:Qt y: 1 on 08/08/2020 by Blaire Marin M.D. at [facility] Hardware e.g. pins/screws /rods Abdomen [employer] [id number] 11/11/2024 / [id number] Clp Hrzn Ti 6 Clp Sm Red - [id number] Implanted:Qt y: 1 on 08/08/2020 by Blaire Marin M.D. at [facility] Hardware e.g. pins/screws /rods Abdomen [employer] [id number] 11/11/2024 / [id number] Clp Hrzn Ti 6 Clp Md Bello - [id number] Implanted:Qt y: 1 on 08/08/2020 by Blaire Marin M.D. at [facility] Hardware e.g. pins/screws /rods Abdomen [employer] [id number] 10/07/2024 / [id number] L Hip Implant Hip Implant Left: Hip Mesh Or Patch Mesh or Patch Abdomen Hernandez Adhn Seprafilm 5x6 - [id number] Implanted:Qt y: 1 on 07/07/2020 by Blaire Marin M.D. at [facility] Mesh or Patch N/A: Abdomen Olivarez 09/29/2022 [id number] / / [id number] [facility] Prf Santosh Polyprp 6x6 - [id number] Implanted:Qt y: 1 on 07/07/2020 by Blaire Marin M.D. at [facility] Mesh or Patch N/A: Abdomen C.R.Bard 09/08/2024 [id number] / / [id number] Ocular Lens Ocular Lens Bilateral: Eye Procedures Procedure Name Priority Date/Time Associated Diagnosis Comments SC ARTHCS ASP/INJ MJR JT W US Routine 12/19/2024 11:00 AM CDT Primary Osteoarthritis Knee Right DX KNEE RIGHT 4+ VIEWS RAD - Routine (most inpatients and all outpatients) 12/18/2024 10:42 AM CDT Pain Knee Right COMPREHENSIVE METABOLIC PANEL, S/P Routine 09/17/2020 2:58 PM CDT Care Home Antibiotic Treatment from Last 3 Months or Most Recently Relevant to Health Maintenance Results * SC ARTHCS ASP/INJ MJR JT W US (12/19/2024 11:00 AM CDT) Narrative MMODAL - 12/19/2024 11:00 AM CDT Beata Yadav M.D. 12/19/2024 11:29 AM Knee site- R knee joint : injection only Performed by: Beata Yadav M.D. Authorized by: Gena Abbott D.OJosé Antonio Care team members present 1. Beata Yadav [...] applicable for the procedure. Site preparation: chlorhexidine us Gena Abbott D.O. PROCEDURE/MINOR SURGICAL OR DERABLES Final Result MMODAL NA * DX Knee Right 4+ Views (12/18/2024 [...] [facility] PROC EDURES Final Result * (ABNORMAL) Comprehensive Metabolic Panel (09/17/2020 2:58 PM CDT) Potassium, S 4.8 3.6 - 5.2 mmol/L [...] CDT Sanchez Hooper M.D. 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
[2025-01-21 14:53] VITALS: BP 144/78; PULSE 88; RESP 18; TEMP 36.5; O2SAT 95; BMI 31.5
--- NOTE | 2025-01-21 14:59 | CRLHL7_ITS ---
For Patients: As a result of the 21st Century Cures Act, medical imaging exams and procedure reports are released immediately into your electronic medical record. You may view this report before your referring provider. If you have questions, please contact your health care provider. INDICATION: Fall, hit back of head, patient on Eliquis. TECHNIQUE: CT head without contrast. COMPARISON: Head CT 02/25/2017 FINDINGS: CSF spaces: Within normal limits for age. Brain parenchyma: The mishra-white differentiation is normal. No sign of mass, hemorrhage, or midline shift. Smaller density within the deep white matter. Skull base and calvarium: Small left mastoid fluid. The visualized orbits are grossly unremarkable. No skull fractures. IMPRESSION: 1. No calvarial fracture or intracranial bleed. 2. Mild nonspecific white matter disease, likely microangiopathy. Please note that all CT scans at this facility use dose modulation, iterative reconstruction, and/or weight-based dosing when appropriate to reduce radiation dose to as low as reasonably achievable. Dictated by Godwin Miles MD @ 01/21/2025 3:33:18 PM (Electronically Signed)
--- NOTE | 2025-01-21 14:59 | CRLHL7_ITS ---
For Patients: As a result of the Century Cures Act, medical imaging exams and procedure reports are released immediately into your electronic medical record. You may view this report before your referring provider. If you have questions, please contact your health care provider. INDICATION: Fall, hit back of head. Patient on Eliquis. TECHNIQUE: CT cervical spine without contrast. COMPARISON: None FINDINGS: No evidence of fracture or suspicious bony lesions. Disc Spaces Occipital-C2: Mild osteoarthritis right atlantoaxial joint. C2/3: Facet hypertrophy without significant stenosis. C3/4: Facet hypertrophy without significant stenosis. C4/5: Posterior osteophytes and facet hypertrophy causing severe right foraminal stenosis. C5/6: Posterior osteophytes facet hypertrophy causing severe right and minimal left foraminal stenosis. C6/7: Posterior osteophytes and facet hypertrophy causing moderate right and mild left foraminal stenosis. C7/T1: Facet hypertrophy without significant stenosis. Other: Small left mastoid fluid. IMPRESSION: Multilevel degenerative changes cervical spine without evidence of cervical spine fracture. Please note that all CT scans at this facility use dose modulation, iterative reconstruction, and/or weight-based dosing when appropriate to reduce radiation dose to as low as reasonably achievable. Dictated by Godwin Miles MD @ 01/21/2025 3:36:33 PM (Electronically Signed)
--- NOTE | 2025-01-21 16:25 | ED.HEATRA ---
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 Patient tripped on a mat at home, fell backward and hit her head. No preceding chest pain or palpitations, did not pass out, complains of some head pain but no other injuries. Related Data Home Medications ?Medication ?Instructions ?Recorded ?Confirmed acetaminophen 500 mg tablet 1,000 mg PO Q6H PRN 10/04/21 12/10/24 cholecalciferol (vitamin D3) 50 50 mcg PO QDAY 10/04/21 12/10/24 mcg (2,000 unit) capsule cyanocobalamin (vitamin B-12) 500 500 mcg PO QDAY 10/04/21 12/10/24 mcg tablet fexofenadine 60 mg tablet 60 mg PO .HS 10/04/21 12/10/24 phentermine 7.5 mg-topiramate ER 1 cap PO Q24H 04/15/22 12/10/24 46 mg capsule,ext.release 24hr mphase (Qsymia) diphenhydramine HCl 25 mg capsule 25 mg PO QHS PRN 09/26/23 12/10/24 (Benadryl) metformin 500 mg tablet,extended 1,000 mg PO BID 09/26/23 12/10/24 release 24 hr multivitamin 1 tab PO QAM 12/10/24 12/10/24 magnesium glycinate 120 mg (as 240 mg PO DAILY 12/11/24 glycinate) capsule Previous Rx's ?Medication ?Instructions ?Recorded hydrocortisone 2.5 % topical cream 1 applic topical BID PRN itching 10/09/22 #20 grams apixaban 2.5 mg tablet 2.5 mg PO BID #180 tabs 07/24/24 bupropion HCl 300 mg 24 hr tablet, 300 mg PO QDAY #90 tabs 07/24/24 extended release fluoxetine 20 mg capsule 20 mg PO QDAY #90 caps 07/24/24 rosuvastatin 10 mg tablet 10 mg PO QDAY #90 tabs 12/20/24 Allergies Allergy/AdvReac Type Severity Reaction Status Date / Time ragweed pollen Allergy Intermediate Headache Verified 01/21/25 15:04 adhesive Allergy Mild Blistering Verified 12/10/24 15:06 adhesive tape Allergy Mild Verified 12/10/24 15:06 amitriptyline Allergy Redness of Verified 01/21/25 15:04 Skin ketamine Allergy Redness of Verified 01/21/25 15:04 Skin seasonal allergies to pollen Allergy Intermediate Uncoded 12/10/24 15:06 Tree Extract Allergy Intermediate Headache Uncoded 12/10/24 15:06 [facility] Medical History History of iron deficiency anemia ?Z86.2 - Personal history of diseases of the blood and blood-forming organs and certain disorders involving the immune mechanism (ICD-10) History of hyperparathyroidism ?Z86.39 - Personal history of other endocrine, nutritional and metabolic disease (ICD-10) History of epistaxis ?Z87.898 - Personal history of other specified conditions (ICD-10) Surgical History History of hysterectomy ?Z90.710 - Acquired absence of both cervix and uterus (ICD-10) History of incisional hernia repair ?Z98.890 - Other specified postprocedural states (ICD-10) ?Z87.19 - Personal history of other diseases of the digestive system (ICD-10) Status post trigger finger release (08/29/19) ?Z98.890 - Other specified postprocedural states (ICD-10) History of ventral hernia repair (2020) ?Z98.890 - Other specified postprocedural states (ICD-10) ?Z87.19 - Personal history of other diseases of the digestive system (ICD-10) History of total hip replacement (2016) ?Z96.649 - Presence of unspecified artificial hip joint (ICD-10) History of squamous cell carcinoma ?Z85.89 - Personal history of malignant neoplasm of other organs and systems (ICD-10) History of Amando fundoplication (2019) ?Z98.890 - Other specified postprocedural states (ICD-10) History of cholecystectomy ?Z90.49 - Acquired absence of other specified parts of digestive tract (ICD-10) History of cataract extraction (2017) ?Z98.49 - Cataract extraction status, unspecified eye (ICD-10) Basal cell carcinoma of face ?C44.310 - Basal cell carcinoma of skin of unspecified parts of face (ICD-10) Family History Father Mother Colon cancer Family/Other Ovarian cancer Sister, Onset Age: 59 Pulmonary embolism Mother High blood pressure Father Stroke Father Social History (Updated 07/24/24 @ 15:57 by Tonya Zaragoza ~ [facility]) What is your current living situation?: I presently have a place to live Problems where you live: no known problems In the past 12 months, utilities in danger of being shut off: no In past 12 months, lack of transportation kept you from medical appts, meetings, work, or getting things needed for daily living: no In the past 12 mos, have been you worried that your food would run out before you had money to buy more?: never true In the past 12 mos, the food you bought just didn't last and you didn't have money to buy more?: never true Smoking Status: Never smoker Do you use any of these nicotine containing products: None Second hand tobacco smoke exposure: No How often do you have a drink containing alcohol: never How often do you have six or more drinks on one occasion: Never AUDIT-C Alcohol total score: 0 Non-prescribed substance use: denies use How often does anyone, including family, friends and others, physically hurt you: never How often does anyone, including family, friends and others, insult or talk down to you: rarely How often does anyone, including family, friends and others, threaten you with harm: never How often does anyone, including family, friends and others, scream or curse at you: rarely service: No Health Related Social Needs: Other personal risk factors, not elsewhere classified (Z91.89) Exam Narrative: Exam Narrative: General: Well-developed and well-nourished, no acute distress Head: trace contusion of the occipital parietal area, no hematoma Eyes: Pupils are equal reactive, extraocular motions intact, conjunctiva clear ENT: External nose and ears are normal, posterior pharynx without erythema or exudate Neck: No midline cervical tenderness, full spontaneous range of motion the neck, trachea midline, no adenopathy Heart: Regular rate and rhythm no murmurs or thrills Lungs: Clear to auscultation bilaterally without wheezes or crackles Abdomen: Soft, nontender, nondistended with active bowel sounds Musculoskeletal: No tenderness, deformity, or edema Neurologic: Awake, alert, and oriented x3, no gross focal neurologic deficits, cranial nerves intact as tested Psych: Mood and affect are appropriate Skin: No rashes Const: Vital Signs, click to edit/add: Vital Signs - 24 hr 01/21/25 14:53 Temperature 97.7 F Pulse Rate [Right Pulse Oximeter] 88 Respiratory Rate 18 Blood Pressure [Ri ght Upper Arm] 144/78 H Pulse Oximetry 95 Oxygen Delivery Me thod Room Air Course Course ED Course: Reviewed most recent primary care visit from November 2024 which was follow-up for hyperlipidemia, also noted the patient has a history of depression, anxiety, and factor 5 Leiden on chronic anticoagulation which impact care Patient seen from lobby due to critical capacity in the department. Patient presents today after tripping falling backward, hitting her head. She is chronically anticoagulated. Head CT independently interpreted by me negative for acute findings, radiology interpretation agrees. CT scan of cervical spine interpreted by radiology negative for acute findings, patient has no tenderness of the cervical spine, no pain with movement. Patient stable for discharge Vital Signs Vital signs: Initial Vital Signs Temperature 97.7 F 01/21/25 14:53 Temperature Source Temporal Artery Scan 01/21/25 14:53 Pulse Rate 88 01/21/25 14:53 Respiratory Rate 18 01/21/25 14:53 Blood Pressure 144/78 H 01/21/25 14:53 Blood Pressure Mean 100 01/21/25 14:53 Blood Pressure Position Sitting 01/21/25 14:53 Pulse Oximetry 95 01/21/25 14:53 Oxygen Delivery Method Room Air 01/21/25 14:53 Vital Signs Temperature 97.7 F 01/21/25 14:53 Pulse Rate 88 01/21/25 14:53 Respiratory Rate 18 01/21/25 14:53 Blood Pressure 144/78 H 01/21/25 14:53 Pulse Oximetry 95 01/21/25 14:53 Oxygen Delivery Method Room Air 01/21/25 14:53 Temperature 97.7 F 01/21/25 14:53 Pulse Rate 88 01/21/25 14:53 Respiratory Rate 18 01/21/25 14:53 Blood Pressure 144/78 H 01/21/25 14:53 Pulse Oximetry 95 01/21/25 14:53 Oxygen Delivery Method Room Air 01/21/25 14:53 MDM - Head Injury MDM Narrative Medical decision making narrative: reviewed most recent physical from February 05, patient with depression, anxiety, history of DVT currently anticoagulated on Eliquis, at that visit did discussed hyperlipidemia, had recently stopped atorvastatin at that time. Patient seen in [facility] due to critical capacity in the emergency department. CT head independently interpreted by me negative for acute intracranial findings , radiology agrees.. CT cervical spine interpreted by Radiology without acute findings. Discharge Plan Discharge Clinical Impression: Contusion of scalp, Anticoagulant long-term use Patient Disposition: Home, Self-Care Condition: Stable Instructions: Head Injury (DC) Activity Level: Activity as Tolerated Discharge Diet: Regular Prescriptions: No Action cholecalciferol (vitamin D3) 50 mcg (2,000 unit) capsule 50 mcg PO QDAY acetaminophen 500 mg tablet 1,000 mg PO Q6H PRN fexofenadine 60 mg tablet 60 mg PO .HS cyanocobalamin (vitamin B-12) 500 mcg tablet 500 mcg PO QDAY apixaban 2.5 mg tablet 2.5 mg PO BID Qty: 180 3RF bupropion HCl 300 mg tablet extended release 24 hr 300 mg PO QDAY Qty: 90 3RF fluoxetine 20 mg capsule 20 mg PO QDAY Qty: 90 3RF Qsymia 7.5-46 mg capsule, ER multiphase 24 hr 1 cap PO Q24H hydrocortisone 2.5 % cream 1 applic topical BID PRN (Reason: itching) Qty: 20 0RF metformin 500 mg tablet extended release 24 hr 1,000 mg PO BID diphenhydramine HCl [Benadryl] 25 mg capsule 25 mg PO QHS PRN multivitamin Tablet 1 tab PO QAM magnesium glycinate 120 mg capsule 240 mg PO DAILY rosuvastatin 10 mg tablet 10 mg PO QDAY Qty: 90 3RF Follow Up/Referrals: Ligia Cash MD [Primary Care Provider, Internal Medicine] Stand Alone Forms: [facility] Info Instructions
[2025-01-21 16:33] VITALS: BP 135/78; PULSE 83; RESP 14; O2SAT 96
--- OUTSIDE RECORDS SUMMARY | 2025-01-21 16:43 | XMS_ITS ---
Author Organization [facility] Care Team Providers Care Conductor Pullman Name Role Phone Chandni Maldonado Unavailable Unavailable Airam Morales Unavailable Unavailable Allergies and adverse reactions Code CodeSystem Substance Reaction Severity StartDate Concern Status sesonal Unknown Unknown active Care Team Name Role Address Phone Organization Dates Chandni Maldonado PCP [address] [facility], [place], [address], [place] (Office): : [facility] 10/16/2015 - 10/21/2015 Airam Morales [address] [place] [address], [address], [place] (Office): : [facility] 10/16/2015 - 10/21/2015 Functional Status Functional Condition Code Code System Date Dependence on Cane 707386451 SNOMED CT 6 Immunizations Immunization Status Vaccine [...] Status 1 ACTIVATED PROTEIN C RESISTANCE 10/16/[address] active 2 AFTERCARE FOLLOWING JOINT REPLACEMENT SURGERY 10/16/[address] active 3 ANXIETY DISORDER, UNSPECIFIED 10/16/[address] active 4 DYSTHYMIC DISORDER 10/16/[address] active 5 GASTRO-ESOPHAGEAL REFLUX DISEASE WITHOUT ESOPHAGITIS 10/16/[address] active 6 HYPERLIPIDEMIA, UNSPECIFIED 10/16/[address] active 7 IRON DEFICIENCY ANEMIA, UNSPECIFIED 10/16/[address] active 8 METABOLIC SYNDROME 10/16/2015 277217897 [facility] T active 9 MUSCLE WEAKNESS (GENERALIZED) 10/16/[address] active 10 OBESITY, UNSPECIFIED 10/16/[address] active 11 OTHER ABNORMALITIES OF GAIT AND MOBILITY 10/16/[address] active 12 OTHER SPECIFIED DISORDERS OF BONE DENSITY AND STRUCTURE, UNSPECIFIED SITE 10/16/[address] active 13 PAIN IN UNSPECIFIED JOINT 10/16/[address] active 14 PERSONAL HISTORY OF OTHER VENOUS THROMBOSIS AND EMBOLISM 10/16/[address] active 15 PRESENCE OF LEFT ARTIFICIAL HIP JOINT 10/16/[address] active 16 RENAL AGENESIS, UNILATERAL 10/16/[address] active 17 UNSPECIFIED ABNORMALITIES OF GAIT AND MOBILITY 10/16/[address] active Reason for Referral No Reasons for Referral Entered Social History Social History Observation Description Start Date End Date Code Code System Current Smoking Status Tobacco smoking consumption unknown 177462700 SNOMED CT Sex Assigned At Female 1955 92187-3 [facility] Gender Identity Sexual Orientation Vital Signs Code Code System Vitals Name Values and Units Timing Information 68780-6 LOINC Pain Level Value=5.0 10/21/2015 8302-2 LOINC Height Value=62.0 Units=Inches 10/21/2015 8462-4 LOINC Blood Pressure-Diastolic Value=67 Un its=mmHg 10/20/2015 8480-6 [facility] Blood Pressure-Systolic Quamd=067 Un its=mmHg 10/20/2015 8310-5 [facility] Body Temperature Value=99.0 Units= F 10/20/2015 8867-4 [facility] Heart rate Value=94.0 Units=/min 10/2015 20280-8 [facility] O2 % BldC Oximetry Value=98.0 Units= % 10/20/2015 9279-1 [facility] Respiratory Rate Value=16.0 Units=/m in 10/19/2015 47654-8 [facility] Weight Kzopj=576.4 Units=Lbs 07/2015
== END 2025-01-21 16:45 | disposition home or self-care (01) ==
LOC: ED 16:41
PROVIDERS: Emergency Provider Family Medicine; PCP Internal Medicine
DX: S00.03XA Contusion of scalp, initial encounter (principal); D68.51 Activated protein C resistance; Z79.01 Long term (current) use of anticoagulants; Z86.718 Personal history of other venous thrombosis and embolism; W01.0XXA Fall on same level from slipping, tripping and stumbling without subsequent striking against object, initial encounter; Y93.01 Activity, walking, marching and hiking; Y92.009 Unspecified place in unspecified non-institutional (private) residence as the place of occurrence of the external cause
CPT/HCPCS: 70450; 72125; 99284

== ENCOUNTER 2025-02-21 13:31 | Outpatient (CLI) | payer MEDICARE, BC, SELFPAY ==
--- NOTE | 2025-02-21 13:45 | CRLHL7_ITS ---
For Patients: As a result of the Century Cures Act, medical imaging exams and procedure reports are released immediately into your electronic medical record. You may view this report before your referring provider. If you have questions, please contact your health care provider. INDICATION: Cerebrovascular accident. TECHNIQUE: Brain MRI without contrast. COMPARISON: Head CT from 01/21/2025. FINDINGS: No evidence of acute ischemia. No evidence of acute or chronic intracranial blood products. Patchy FLAIR hyperintensities within the supratentorial white matter and brainstem, typical for chronic microvascular ischemic change. Mild to moderate generalized parenchymal volume loss. No mass effect or herniation. No hydrocephalus or extra-axial collections. The pituitary gland, parasellar structures and optic chiasm are normal. Posterior fossa is normal. All the major intracranial vascular structures demonstrate normal flow-related signal. The orbital contents are normal. No calvarial or skull base marrow replacing process. No obstructive sinus disease. Bilateral mastoid tip effusions. No extracranial soft tissue findings. IMPRESSION: 1. No acute infarction or other acute intracranial pathology. 2. Mild chronic microvascular ischemic changes and mild to moderate generalized parenchymal volume loss. Dictated by Dwight Heller MD @ 02/22/2025 3:13:31 PM (Electronically Signed)
== END 2025-02-21 13:32 | disposition home or self-care (01) ==
LOC: MRI 13:32
PROVIDERS: PCP Internal Medicine; Visit Provider Internal Medicine
DX: I63.9 Cerebral infarction, unspecified (principal); I67.82 Cerebral ischemia; G31.9 Degenerative disease of nervous system, unspecified; H74.8X3 Other specified disorders of middle ear and mastoid, bilateral
CPT/HCPCS: 70551